=== PATIENT | female | born 1940 | race Caucasian/White ===

== ENCOUNTER 2019-09-16 08:12 | Inpatient (IN) | payer MEDICARE, OTHER, SELFPAY ==
[2019-09-16] VITALS (10 sets, daily range): BP systolic 133–196; BP diastolic 61–91; PULSE 89–104; RESP 16–22; TEMP 37–37.2; O2SAT 91–96; BMI 20.9
--- NOTE | 2019-09-16 08:24 | DI.RAD.S_ITS ---
PROCEDURE: XR CHEST 1V INDICATIONS: chest pain TECHNIQUE: One view of the chest was acquired. COMPARISON: [facility], , CHEST 2 VIEW, 08/21/2015, 15:04. FINDINGS: Surgical changes and devices: None. Lungs and pleura: There is hyperinflation of the lungs with flattening of the hemidiaphragms compatible with COPD. No acute consolidation. No pleural effusions or pneumothorax. Mediastinum: Mediastinal contours appear normal. Heart size is normal. Bones and chest wall: No suspicious bony lesions. Overlying soft tissues appear unremarkable. IMPRESSION: 1. Findings compatible COPD redemonstrated without acute cardiopulmonary disease. Dictated by: Zhen Herman M.D. on 09/16/2019 at 10:34 Approved by: Zhen Herman M.D. on 09/16/2019 at 10:36
--- NOTE | 2019-09-16 08:27 | DI.RAD.S_ITS ---
PROCEDURE: XR HIP W PEL IF DONE LT 2V INDICATIONS: left hip pain, hematoma, fall yesterday TECHNIQUE: 3 views of the hip were acquired. COMPARISON: None. FINDINGS: Bones: There is a subcapital/proximal left femoral neck fracture with superior displacement of the distal fracture fragment with respect to the femoral head fracture fragment by approximately 2.5 cm. No additional acute fractures are evident. There is no dislocation. No suspicious osseous lesions are identified. Moderate degenerative changes of the lower lumbar spine are present. Soft tissues: Extensive chondrocalcinosis is identified. Vascular stents at the expected locations of the bilateral common iliac arteries appear to be present. Otherwise, the soft tissues are unremarkable. IMPRESSION: 1. Mildly displaced subcapital fracture of the left proximal femur. 2. Chondrocalcinosis. Please correlate clinically for possible calcium pyrophosphate deposition disease. Dictated by: Emigdio Bazan M.D. on 09/16/2019 at 9:15 Approved by: Emigdio Bazan M.D. on 09/16/2019 at 9:19
--- NOTE | 2019-09-16 08:27 | DI.RAD.S_ITS ---
PROCEDURE: XR HAND LT MIN 3V INDICATIONS: left thumb, swelling and ecchymosis, small skin tear TECHNIQUE: 3 views of the hand(s) acquired. COMPARISON: None. FINDINGS: Bones: There is a mildly comminuted oblique fracture that probably extends into the joint involving the radial base of the proximal phalanx of the thumb. No additional fractures are evident. There is fusion. Carpal bones are normally aligned. No suspicious bony lesions. Moderate to severe degenerative changes of the joints of the wrist are significantly most pronounced involving the basal joint of the thumb. Soft tissues: Extensive chondrocalcinosis is identified. Soft tissue swelling of the thumb is present. IMPRESSION: 1. Nondisplaced intra-articular fracture involving the radial base of the proximal phalanx of the thumb. 2. Extensive chondrocalcinosis of the left hand may be seen in the setting of calcium pyrophosphate deposition disease. Please correlate clinically. Dictated by: Emigdio Bazan M.D. on 09/16/2019 at 9:11 Approved by: Emigdio Bazan M.D. on 09/16/2019 at 9:13
--- NOTE | 2019-09-16 08:27 | DI.RAD.S_ITS ---
PROCEDURE: XR FEMUR LT MIN 2V INDICATIONS: left hip/femur pain, hematoma TECHNIQUE: 2 views of the femur were acquired. COMPARISON: None. FINDINGS: Bones: There is a fracture involving the subcapital region of the left femoral neck with moderate proximal migration of the femur with respect to the acetabulum. No additional fractures are evident. Postoperative changes related to a total left knee arthroplasty are present. No suspicious osseous lesions are evident. Soft tissues: No suspicious soft tissue calcifications or masses. IMPRESSION: Proximal left femoral neck fracture. Dictated by: Emigdio Bazan M.D. on 09/16/2019 at 8:55 Approved by: Emigdio Bazan M.D. on 09/16/2019 at 9:11
--- NOTE | 2019-09-16 08:29 | ED_ITS ---
HPI - Extremity Injury (Lower) General Chief Complaint: Extremity Injury, Lower Stated Complaint: Fall - Hip pain & thumb dislocation Time Seen by Provider: 09/16/19 08:17 Source: patient, family (son), EMS and old records reviewed Mode of arrival: EMS Limitations: no limitations History of Present Illness HPI Narrative: This is a 78-year-old female who comes to the emergency department after a ground level fall yesterday. Patient states that she felt a little dizzy and fell to the ground. She states that she gets dizzy fairly frequently and often has falls. She denies hitting her head. She denies any headache or vision changes. She denies any neck or back pain. Yesterday she was able to get up. She fell on outstretched hand on her left and had significant swelling of the hand as well as bruising and some small skin tears. She states she had some left hip pain but was able to ambulate with her walker with moderate difficulty. This morning when she went to get out of her chair after sleeping she was too painful and noted that she had a hematoma on her left hip. Patient denies any dizziness currently. She denies any chest pain or shortness of breath at any point. No nausea, no vomiting, no no GI or urinary symptoms. No new numbness or tingling. She states she has a history of leukemia and is about 25 years out from treatment she does not follow regularly with oncologist but does with her primary care, COPD with tobacco use until fairly recently. She has had a left knee replacement but denies any other surgical history. Occasional alcohol recently she has been having a small drink nightly. No illicit. Dr. Sommer Hicks is her primary care. She lives in a basement apartment with her son and family. Related Data Home Medications Medication Instructions Recorded Confirmed alendronate 70 mg PO WEEKLY 09/16/19 09/16/19 aspirin [Adult Low Dose Aspirin] 81 mg PO DAILY 09/16/19 09/16/19 atorvastatin 20 mg PO DAILY 09/16/19 09/16/19 cholecalciferol (vitamin D3) 2,000 units PO DAILY 09/16/19 09/16/19 levothyroxine 50 mcg PO DAILY 09/16/19 09/16/19 mometasone-formoterol [Dulera] 100 inh INHALATION BID 09/16/19 09/16/19 triamterene-hydrochlorothiazid 1 cap PO DAILY 09/16/19 09/16/19 Allergies Allergy/AdvReac Type Severity Reaction Status Date / Time bee venom protein (honey bee) Allergy Severe Anaphylaxis Verified 09/16/19 08:44 lidocaine [From XYLOCAINE] Allergy Severe ANAPHYLAXIS Verified 09/16/19 08:31 Review of Systems Review of Systems ROS Unobtainable: All systems reviewed & are unremarkable except as noted in HPI and below Patient History Medical History COPD (chronic obstructive pulmonary disease) (Acute) Leukemia (Acute) Surgical History History of left knee replacement (Acute) Social History household members: family Smoking Status: Former smoker Smoking Status: Former smoker alcohol intake frequency: 0-2 drinks per day (1 small drink ) Substance Use Type: does not use Exam Narrative Exam Narrative: GEN: Patient appears in mild distress. HEAD: No evidence of trauma, no raccoon/[place] sign. NECK: Nontender, painless range of motion, trachea midline Negative Nexus criteria, there is no midline tenderness, distracting injury, altered mental status, neuro deficit, recent EtOH. EYES: PERRLA, EOMI ENT: External inspection normal, trachea is midline, TM's are normal no hemotypanum, Nares are clear, no septal hematoma, no dental or oral injury, airway is normal and with normal occlusion, No bony tenderness RESP: Chest is nontender and has symmetric movement, no ecchymosis, breath sounds are normal no crackles, wheezes or rales, no tachypnea or accessory muscle use. CVS: Heart sounds are normal, no murmur noted, No JVD. ABG/GI: Nontender, soft, normal bowel sounds, no distention, no organomegaly, pelvic rock is negative. NEURO: Oriented AOx3, neuro is grossly intact, sensation and motor is normal all 4 extremities moving, cranial nerves II through XII are intact, GCS is 15 PSYCH: Normal mood and affect SKIN: Patient has three small skin tears on the left thumb and palm of hand, w arm and dry, no crepitus and without decubitus BACK: No CVA tenderness, no vertebral tenderness, no step-off's, no crepitus EXT: Atraumatic, right hip is are nontender, left hip is non-tender moderately over left greater trochanter but more so over proximal femur, there is a 6x2cm area of ecchymosis over area of tenderness with small hematoma palpated, patient has swelling and ecchymosis of left thumb and into dorsum and palm of hand, patient can fully flex and extend, mild deformity although patient states this is normal, cap refill less than 2 seconds, normal sensation throughout hand, no proximal bony tenderness of wrist, forearm and upper arm on left. no pedal edema, normal color and temperature, normal range of motion of extremities with normal tendon exam in all other extremities, 2+ pulses in all four extremities. Initial Vital Signs Initial Vital Signs: Vital Signs Temperature 98.8 F 09/16/19 08:14 Pulse Rate 99 H 09/16/19 08:14 Respiratory Rate 18 09/16/19 08:14 Blood Pressure 196/79 H 09/16/19 08:14 Pulse Oximetry 94 09/16/19 08:14 Scores GCS Anna coma scale eye opening: Spontaneous [place] coma scale verbal response: Orientated [place] coma scale motor response: Obey commands [place] coma scale total score: 15 Course Orders Ordered: ED Orders 09/16/19 08:21 EKG-12 Lead Stat 09/16/19 08:24 XR chest 1V Stat 09/16/19 08:27 XR femur LT min 2V Stat XR hand LT min 3V Stat XR hip w pel if done LT 2V Stat 09/16/19 08:38 Complete Blood Count AUTO DIFF Stat Comprehensive Metabolic Panel Stat Lipase Stat Partial Thromboplastin Time Stat Prothrombin Time INR Stat Troponin & CK Cardiac Panel Stat Enoxaparin Sodium (Lovenox) 40 mg SUBCUT DAILY KOREY Sodium Chloride (Normal Saline 0.9%) 1,000 mls @ 100 mls/hr IV CONT KOREY Last Admin: 09/16/19 13:30 Dose: 100 mls/hr Documented by: DEVANTE Morphine Sulfate (Morphine) 4 mg IV Q2HR PRN PRN Reason: Pain, Severe (7-10) Last Admin: 09/16/19 13:30 Dose: 4 mg Documented by: DEVANTE Naloxone HCl (Narcan) 0.2 mg IV Q2MIN PRN PRN Reason: Opiate Reversal Discontinued Medications Diphtheria/Tetanus/Acell Pertussis (Adacel) 0.5 ml IM .ONCE ONE Stop: 09/16/19 08:33 Last Admin: 09/16/19 08:56 Dose: 0.5 ml Documented by: TYE Sodium Chloride (Normal Saline 0.9%) 1,000 mls @ 150 mls/hr IV CONT KOREY Last Admin: 09/16/19 08:52 Dose: 150 mls/hr Documented by: TYE Morphine Sulfate (Morphine) 4 mg IV NOW ONE Stop: 09/16/19 08:30 Last Admin: 09/16/19 08:50 Dose: 4 mg Documented by: TYE Morphine Sulfate (Morphine) 4 mg IV NOW ONE Stop: 09/16/19 09:48 Last Admin: 09/16/19 10:05 Dose: 4 mg Documented by: TYE Potassium Chloride (Potassium Chloride) 40 meq PO NOW ONE Stop: 09/16/19 09:12 Last Admin: 09/16/19 10:05 Dose: 40 meq Documented by: TYE Vital Signs Vital signs: Vital Signs - 8 hr 09/16/19 08:14 09/16/19 09:00 09/16/19 10:00 Temperature 98.8 F Pulse Rate 99 H 89 95 H Respiratory Rate 18 18 22 Blood Pressure 196/79 H Blood Pressure [Right Arm] 152/64 H 174/76 H Pulse Oximetry 94 91 92 09/16/19 10:30 Temperature Pulse Rate 95 H Respiratory Rate 17 Blood Pressure Blood Pressure [Right Arm] 156/69 H Pulse Oximetry 91 MDM - Extremity Injury (Lower) Lab Data Result diagrams: 09/16/19 08:38 09/16/19 08:38 Labs: Lab Results 09/16/19 09/16/19 09/16/19 Range/Units 08:38 08:38 08:38 WBC 12.0 H (4.5-11.0) X10^3/uL RBC 4.00 (4.0-5.2) X10^6/uL Hgb 14.2 (12.0-16.0) g/dL Hct 42.0 (36-46) % MCV 104.9 H (80-100) fL MCH 35.5 H (26-34) PG MCHC 33.9 (30-36) % RDW 14.1 (11.6-14.8) % Plt Count 162 (150-400) X10^3/uL Neut % (Auto) 58.3 (50-75) % Lymph % (Auto) 37.9 (25-40) % [place] % (Auto) 2.8 L (3-14) % Eos % (Auto) 0.8 L (2-4) % Baso % (Auto) 0.2 (0-2) % Neut # (Auto) 7000 (3989-9803) /uL Lymph # (Auto) 4600 H (4957-4860) /uL [place] # (Auto) 300 (0-900) /uL Eos # (Auto) 100 (0-450) /uL Baso # (Auto) 0 (0-100) /uL PT 11.7 (10.1-12.7) SECONDS INR 1.0 (0.9-1.3) APTT 31 (26.4-36.2) SECONDS Sodium 136 L (137-145) mmol/L Potassium 3.2 L (3.4-5.1) mmol/L Chloride 100 (98-107) mmol/L Carbon Dioxide 30 (22-32) mmol/L BUN 15 (7-17) mg/dL Creatinine 0.44 L (0.52-1.04) mg/dL Estimated GFR > 60.0 (>60) mL/min BUN/Creatinine Ratio 34.1 H (6-22) Glucose 107 (80-110) mg/dL Calcium 9.4 (8.4-10.2) mg/dL Total Bilirubin 1.6 H (0.2-1.3) mg/dL AST 34 (14-36) IU/L ALT 25 (<35) IU/L Alkaline Phosphatase 102 (38-126) U/L Total Creatine Kinase 92 (30-135) U/L CK-MB (CK-2) TNP CK-MB (CK-2) Rel Index TNP Troponin I < 0.012 (0.01-0.034) ng/mL Total Protein 7.5 (6.3-8.2) g/dL Albumin 4.2 (3.5-5.0) g/dL Globulin 3.3 (1.7-4.1) g/dL Albumin/Globulin Ratio 1.3 (1.0-2.8) Lipase 22 L (23-300) U/L ECG Data Attestation: I personally reviewed and interpreted this ECG as follows: Prior ECG tracings: not available for review Interpretation: Sinus rhythm with left axis deviation rate 85 P are 176 QRS is 68 QTC of 395. Patient does have a little bit of motion artifact that were we were unable to resolve with repeat attempts in EKG. No obvious ST elevation or depression is noted. Patient does have nonspecific change in 3 and AVF. No priors for comparison. MDM Narrative Medical decision making narrative: Patient arrives with GLF yesterday, was able to ambulate after the fall but has had increasing pain today and unable to get out of chair or ambulate. Patient does take asa 81mg nightly but no other a nticoagulants. Denies any head injuries. She has intermittent dizziness and relates this to her fall with no syncope or new symptoms at this time. WBC is 12, patient has macrocytosis. Monocytes are 2.8 any other 0.8, patient has chronically elevated leukocytosis. Coags are normal, patient's electrolytes show sodium 136 with a slightly low potassium at 3.2, the rest electrolytes and renal function do not show major abnormalities bilirubin is 1.6 with negative troponin. X-rays show a displaced subcapital fracture left proximal femur as well as a comminuted oblique fracture likely extending the joint of the proximal phalanx of the thumb. There is moderate to severe degenerative changes. A chest x-ray shows findings compatible with COPD. EKG does not show any acute changes. Patient received a dose of IV narcotics but after imaging received a 2nd dose as her pain had increased. She is much more comfortable at this time. Images were reviewed with Dr. Mckeon from orthopedic surgery, plan for OR either today or tomorrow unclear based on scheduling. Plan for covid testing as per OR protocol at this time. Patient was placed in a splint to immoblize the thumb and will have definitive cast/splint by ortho while in the OR. Discussed with Dr. Woodall who accepts for admission and medical clearance at the request of the orthopedic surgery. Discharge Plan Departure Patient Disposition: Admitted As Inpatient Clinical Impression: Fall from ground level, Closed fracture of left hip, Fracture of thumb, left, closed Discharge Date/Time: 09/16/19 11:50 Admit Date/Time: 09/16/19 10:43 Admit Provider: Mele Woodall
[2019-09-16 08:47] LABS: Add Manual Diff / Slide Review NO; Basophils Absolute Auto 0 /uL (0-100); Basophils Percent Auto 0.2 % (0-2); Eosinophils Absolute Auto 100 /uL (0-450); Eosinophils Percent Auto 0.8 % (2-4); Hemoglobin 14.2 g/dL (12.0-16.0); Lymphocytes Absolute Auto 4600 /uL (1100-4500); Lymphocytes Percent Auto 37.9 % (25-40); Mean Corpuscular HGB Conc 33.9 % (30-36); Mean Corpuscular Hemoglobin 35.5 PG (26-34); Mean Corpuscular Volume 104.9 fL (80-100); Monocytes Absolute Auto 300 /uL (0-900); Monocytes Percent Auto 2.8 % (3-14); Neutrophils Absolute Auto 7000 /uL (1500-7000); Neutrophils Percent Auto 58.3 % (50-75); Platelet Count 162 X10^3/uL (150-400); Red Cell Distribution Width 14.1 % (11.6-14.8)
[2019-09-16] MEDS: MORPHINE 4 MG/ML INJ IV ×4 (08:50→16:48)
[2019-09-16] MEDS: SODIUM CHLORIDE 0.9% 1,000 ML 150 ML IV (08:52)
[2019-09-16 08:54] LABS: Prothrombin Time 11.7 SECONDS (10.1-12.7)
[2019-09-16 08:56] LABS: PTT Partial Thromboplastin Tim 31 SECONDS (26.4-36.2)
[2019-09-16] MEDS: TET,DIPH,PERTUSS(ACELL),VAC/PF 0.5 ML SYRINGE IM (08:56)
[2019-09-16 08:59] LABS: Alanine Aminotransferase 25 IU/L (<35); Albumin 4.2 g/dL (3.5-5.0); Albumin Globulin Ratio 1.3 (1.0-2.8); Alkaline Phosphatase 102 U/L (38-126); Aspartate Aminotransferase 34 IU/L (14-36); BUN Creatinine Ratio 34.1 (6-22); Bilirubin Total 1.6 mg/dL (0.2-1.3); Blood Urea Nitrogen 15 mg/dL (7-17); Calcium 9.4 mg/dL (8.4-10.2); Carbon Dioxide 30 mmol/L (22-32); Chloride 100 mmol/L (98-107); Creatine Kinase 92 U/L (30-135); Estimated Glomerular Filt Rate > 60.0 mL/min (>60); Globulin 3.3 g/dL (1.7-4.1); Glucose 107 mg/dL (80-110); HEMOLYSIS < 15 (0-50); Lipase 22 U/L (23-300); Potassium 3.2 mmol/L (3.4-5.1); Sodium 136 mmol/L (137-145); Total Protein 7.5 g/dL (6.3-8.2)
[2019-09-16 09:10] LABS: Troponin I < 0.012 ng/mL (0.01-0.034)
[2019-09-16] MEDS: POTASSIUM CHLORIDE 20 MEQ/15 ML UDC 40 MEQ PO (10:05)
--- NOTE | 2019-09-16 11:20 | PC.NURSE ---
Second IV site added right forearm.
[2019-09-16 11:23] LABS: Appearance Urine UA CLEAR; Bilirubin Urine UA NEGATIVE (NEGATIVE); Color Urine UA YELLOW; Glucose Urine UA NEGATIVE (Negative); Ketones Urine UA NEGATIVE (NEGATIVE); Leukocyte Esterase Urine UA NEGATIVE (NEGATIVE); Nitrite Urine UA NEGATIVE (Negative); Occult Blood Urine UA 1+ (Negative); Protein Urine UA NEGATIVE (Negative); Urobilinogen Urine UA 0.2 E.U./dL (0.2)
[2019-09-16 11:33] LABS: Bacteria Urine Few (2-10); Culture Indicated Urine Cult Not Indicated; RBC Urine 0-1/HPF (0-5/HPF); WBC Urine 0-1/HPF (0-5/HPF)
--- NOTE | 2019-09-16 12:02 | PC.NURSE ---
Addendum entered by Kaylie Stacy R.N. 09/16/19 13:42: EKG at bedside. SCDs and Tele in place. IVF infusing. Updated son Darryl Rdz (POA) regarding plan of care. Original Note: Day shift note: Patient admitted to room 213 from ED, awake, alert, and pleasant. Transferred from [facility] to bed with slider board. Large bruise to left hip, left thumb. Please see skin assessment for details. C/O pain to LLE with movement, shortened extremity, pedal pulse 2+, sensation present, discoloration noted to toes, however, warm, movable with cap refill < 2 secs. Left hand/thumb in splint. Oriented to room, environment, and plan of care. Dr. Woodall at bedside. Patient NPO, high risk precautions initiated, call light within reach. COVID test pending, precautions maintained.
[2019-09-16 12:14] LABS: COVID19 -Nasal RAPID Negative (Negative)
--- NOTE | 2019-09-16 12:29 | P.HP_ITS ---
History of Present Illness History of Present Illness Date Patient Seen: 09/16/19 Time Patient Seen: 12:29 Date of Onset of Symptoms: 09/15/19 Chief complaint: Fall - Hip pain & thumb dislocation Narrative: Francisca Rdz is a 70-year-old female with past medical history of CLL (never had treament). PAD, COPD, HTN, probable prior CVA (problems with speech, but refused admission at the time in [place]), hypothyroidism, active smoker who presented after a fall yesterday in her driveway. She states she felt mildly dizzy prior to her fall, but fell backwards on to her left side. She was wearing headphones and did notice a scratch on them but states that they took most of the impacted she does not remember hitting her head on the ground. She did not lose consciousness. She denies any recent fevers, chills, worsening shortness of breath, cough, chest pain, palpitations, abdominal pain, dysuria, or urinary frequency. She complained of left hip and knee pain after the fall, she called her son initially, who she lives with. She also complained left hand pain and bruising. Patient lives with her son. She lives independently in the basement with her son up above. She does all of her daily activities. In the ED, patient was hypertensive, but other vital signs unremarkable. Labs were notable for a potassium of 3.2, but otherwise unremarkable chemistries except for a mildly elevated T bili at 1.6. White blood cell count was 12, hemoglobin 14, and platelet count of 162. Patient has known CLL and believes that her baseline white blood cell count is around 20, but she has not been seen by her oncologist in a while. She does follow annually for this. Chest x-ray showed hyperinflated lungs consistent with known COPD but no acute infiltrates. Femur x-ray showed a left femoral neck fracture and hand x-ray showed a left proximal phalanx fracture of her thumb. Patient had a brace placed by the emergency room and will be further evaluated by orthopedic surgery. She is admitted to the medicine service with a left for more neck fracture with plans to undergo operative interventions in the next 24 hours. She is currently pending a repeat EKG, but based on her current symptoms she appears medically optimized for surgery. Patient History Medical History COPD (chronic obstructive pulmonary disease) (Acute) Leukemia (Acute) Surgical History History of left knee replacement (Acute) Family & Social History Safety & Behavioral: Feels Safe in Current Yes Environment Been Physically Hurt or No Threatened By a Person Tobacco & Substance use: Smoking Status Former smoker alcohol intake frequency 0-2 drinks per day Substance Use Type does not use Meds Home Medications and Allergies Home Medications Medication Instructions Recorded Confirmed Type alendronate 70 mg PO WEEKLY 09/16/19 09/16/19 History aspirin [Adult Low Dose Aspirin] 81 mg PO DAILY 09/16/19 09/16/19 History atorvastatin 20 mg PO DAILY 09/16/19 09/16/19 History cholecalciferol (vitamin D3) 2,000 units PO DAILY 09/16/19 09/16/19 History levothyroxine 50 mcg PO DAILY 09/16/19 09/16/19 History mometasone-formoterol [Dulera] 100 inh INHALATION BID 09/16/19 09/16/19 History triamterene-hydrochlorothiazid 1 cap PO DAILY 09/16/19 09/16/19 History Allergies Allergy/AdvReac Type Severity Reaction Status Date / Time bee venom protein (honey bee) Allergy Severe Anaphylaxis Verified 09/16/19 08:44 lidocaine [From XYLOCAINE] Allergy Severe ANAPHYLAXIS Verified 09/16/19 08:31 Review of Systems Review of Systems Narrative: All other systems reviewed with the patient and are negative unless otherwise stated. Exam Vital Signs (past 8 hours): - 09/16/19 08:14 09/16/19 09:00 09/16/19 10:00 Temperature 98.8 F Pulse Rate 99 H 89 95 H Respiratory Rate 18 18 22 Blood Pressure 196/79 H Blood Pressure [Right Arm] 152/64 H 174/76 H Pulse Oximetry 94 91 92 09/16/19 10:30 Temperature Pulse Rate 95 H Respiratory Rate 17 Blood Pressure Blood Pressure [Right Arm] 156/69 H Pulse Oximetry 91 Oxygen Delivery Method Room Air Narrative Exam Narrative: GENERAL APPEARANCE: Elderly female, no acute distress, well developed well nourished. SKIN: Inspection of the skin reveals no rashes, ulcerations or petechiae. HEENT: Normocephalic atraumatic, extraocular muscles are intact, oropharynx is clear and mucous membranes are dry, neck is supple without adenopathy NECK: Supple and symmetric. There was no thyroid enlargement, and no tenderness, or masses were felt. CHEST: Normal AP diameter and normal contour without any kyphoscoliosis. LUNGS: Auscultation of the lungs revealed no wheezes, rhonchi, or rales. CARDIOVASCULAR: There was a regular rhythm without any murmurs, gallops, rubs, she was mildly tachycardic. Peripheral pulses were 2+ and symmetric. ABDOMEN: Soft and nontender with normal bowel sounds. No ascites was noted. MUSCULOSKELETAL: Left hip and thumb some tenderness. There is significant ecchymosis on her left hand as well as her left hip. EXTREMITIES: No cyanosis, clubbing or edema. NEUROLOGIC: Alert and oriented x 3. Normal affect. Gait was not assessed. Strength is +5/5 in the Upper Extremities and Lower Extremities Bilaterally. Sensation to touch was normal. Objective Labs Result Diagrams: 09/16/19 08:38 09/16/19 08:38 Labs: Laboratory Results - last 24 hr 09/16/19 09/16/19 09/16/19 08:38 08:38 08:38 WBC 12.0 H RBC 4.00 Hgb 14.2 Hct 42.0 MCV 104.9 H MCH 35.5 H MCHC 33.9 RDW 14.1 Plt Count 162 Neut % (Auto) 58.3 Lymph % (Auto) 37.9 [place] % (Auto) 2.8 L Eos % (Auto) 0.8 L Baso % (Auto) 0.2 Neut # (Auto) 7000 Lymph # (Auto) 4600 H [place] # (Auto) 300 Eos # (Auto) 100 Baso # (Auto) 0 PT 11.7 INR 1.0 APTT 31 Sodium 136 L Potassium 3.2 L Chloride 100 Carbon Dioxide 30 BUN 15 Creatinine 0.44 L Estimated GFR > 60.0 BUN/Creatinine Ratio 34.1 H Glucose 107 Calcium 9.4 Total Bilirubin 1.6 H AST 34 ALT 25 Alkaline Phosphatase 102 Total Creatine Kinase 92 CK-MB (CK-2) TNP CK-MB (CK-2) Rel Index TNP Troponin I < 0.012 Total Protein 7.5 Albumin 4.2 Globulin 3.3 Albumin/Globulin Ratio 1.3 Lipase 22 L Urine Color Urine Appearance Urine pH Ur Specific [place] Urine Protein Urine Glucose (UA) Urine Ketones Urine Occult Blood Urine Nitrate Urine Bilirubin Urine Urobilinogen Ur Leukocyte Esterase Urine RBC Urine WBC Urine Bacteria Ur Culture Indicated? COVID-19 PCR 09/16/19 09/16/19 10:55 10:55 WBC RBC Hgb Hct MCV MCH MCHC RDW Plt Count Neut % (Auto) Lymph % (Auto) [place] % (Auto) Eos % (Auto) Baso % (Auto) Neut # (Auto) Lymph # (Auto) [place] # (Auto) Eos # (Auto) Baso # (Auto) PT INR APTT Sodium Potassium Chloride Carbon Dioxide BUN Creatinine Estimated GFR BUN/Creatinine Ratio Glucose Calcium Total Bilirubin AST ALT Alkaline Phosphatase Total Creatine Kinase CK-MB (CK-2) CK-MB (CK-2) Rel Index Troponin I Total Protein Albumin Globulin Albumin/Globulin Ratio Lipase Urine Color Yellow Urine Appearance Clear Urine pH 7.0 Ur Specific [place] 1.010 Urine Protein Negative Urine Glucose (UA) Negative Urine Ketones Negative Urine Occult Blood 1+ H Urine Nitrate Negative Urine Bilirubin Negative Urine Urobilinogen 0.2 Ur Leukocyte Esterase Negative Urine RBC 0-1/hpf Urine WBC 0-1/hpf Urine Bacteria Few (2-10) H Ur Culture Indicated? Cult not indicated COVID-19 PCR Negative Assessment & Plan Assessment & Plan narrative: Francisca Rdz is a 70-year-old female with past medical history of CLL (never had treament). PAD, COPD, HTN, probable prior CVA (problems with speech, but refused admission at the time in [place]), hypothyroidism, active smoker who presented after a fall yesterday in her driveway. She is admitted to the medicine service with a left femur fracture with plans to undergo operative intervention in the next 24 hours. She also has a left thumb proximal phalanx fracture which is pending orthopedic evaluation. 1. Left femur fracture, acute, present on admission -management per orthopedic surgery, appreciate assistance with management -Plan for OR tomorrow per ortho for surgical interventions -continue pain management with morphine as needed -zofran for nausea 2. Left thumb proximal phalanx fracture, acute, present on admission - splint per ortho to be placed in the OR 3. COPD, chronic, stable - duonebs BID to replace home dulera - RT eval and treat, prn albuterol 4. Hypertension, chronic, stable - will hold HCTZ as Na 136 on admission. - BP controlled with pain medications, restart with alternative agent when needed, preferrably lisinopril after OR. 5. PAD, chronic, stable - asa 81 mg 6. CLL, stable -continue to follow CBC 7. Hypokalemia - will replete. 8. Probable history of CVA Code: Full, states she does not have a medical power of bearing grinder for a surrogate decision maker. She does have 3 sons and states that they often disagree. She does have an advanced directive which we will work on obtaining. Dispo: Admitted under inpatient status as her stay is likely to exceed 2 midnights DVT: Lovenox daily Diet: NPO @ [place] For OR tomorrow.
[2019-09-16] MEDS: SODIUM CHLORIDE 0.9% 1,000 ML 100 ML IV ×2 (13:30→19:34)
--- NOTE | 2019-09-16 14:02 | PM.CN ---
History of Present Illness Consult details Date Patient Seen: 09/16/19 Time Patient Seen: 14:02 Chief complaint: Fall - Hip pain & thumb dislocation Narrative: Francisca Rdz is a 78-year-old female with past medical history of CLL (never had treament). PAD, COPD, HTN, probable prior CVA (problems with speech, but refused admission at the time in [place]), hypothyroidism, active smoker who presented after a fall yesterday in her driveway. She states she felt mildly dizzy prior to her fall, but fell backwards on to her left side. She ledy she lightly struck her head, but no LOC. She denies any recent fevers, chills, worsening shortness of breath, cough, chest pain, palpitations, abdominal pain, dysuria, or urinary frequency. She complained of left hip and knee pain after the fall, she called her son initially, who she lives with. She also complained left hand pain and bruising. This occured yesterday. Patient lives with her son. She lives independently in the basement with her son up above. She does all of her daily activities. Meds Home Medications and Allergies Home Medications Medication Instructions Recorded Confirmed Type alendronate 70 mg PO WEEKLY 09/16/19 09/16/19 History aspirin [Adult Low Dose Aspirin] 81 mg PO DAILY 09/16/19 09/16/19 History atorvastatin 20 mg PO DAILY 09/16/19 09/16/19 History cholecalciferol (vitamin D3) 2,000 units PO DAILY 09/16/19 09/16/19 History levothyroxine 50 mcg PO DAILY 09/16/19 09/16/19 History mometasone-formoterol [Dulera] 100 inh INHALATION BID 09/16/19 09/16/19 History triamterene-hydrochlorothiazid 1 cap PO DAILY 09/16/19 09/16/19 History Allergies Allergy/AdvReac Type Severity Reaction Status Date / Time bee venom protein (honey bee) Allergy Severe Anaphylaxis Verified 09/16/19 08:44 lidocaine [From XYLOCAINE] Allergy Severe ANAPHYLAXIS Verified 09/16/19 08:31 Exam Vital Signs (past 8 hours): - 09/16/19 08:14 09/16/19 09:00 09/16/19 10:00 Temperature 98.8 F Pulse Rate 99 H 89 95 H Respiratory Rate 18 18 22 Blood Pressure 196/79 H Blood Pressure [Right Arm] 152/64 H 174/76 H Pulse Oximetry 94 91 92 09/16/19 10:30 09/16/19 12:00 09/16/19 12:43 Temperature 99.0 F Pulse Rate 95 H 104 H Respiratory Rate 17 18 Blood Pressure 142/61 H Blood Pressure [Right Arm] 156/69 H Pulse Oximetry 91 93 96 Oxygen Delivery Method Room Air Oxygen Flow Rate 0 Narrative Exam Narrative: No skin breaks over the left hip. NV intact in the LLE. Able to wiggle toes. Knee is stable to exam, although sore. LEft hand with brusing. TTP at the MCP joint. Sever degenerative changes seen throughout the hand (in addition to fracture) Objective Labs Result Diagrams: 09/16/19 08:38 09/16/19 08:38 Labs: Laboratory Results - last 24 hr 09/16/19 09/16/19 09/16/19 08:38 08:38 08:38 WBC 12.0 H RBC 4.00 Hgb 14.2 Hct 42.0 MCV 104.9 H MCH 35.5 H MCHC 33.9 RDW 14.1 Plt Count 162 Neut % (Auto) 58.3 Lymph % (Auto) 37.9 [place] % (Auto) 2.8 L Eos % (Auto) 0.8 L Baso % (Auto) 0.2 Neut # (Auto) 7000 Lymph # (Auto) 4600 H [place] # (Auto) 300 Eos # (Auto) 100 Baso # (Auto) 0 PT 11.7 INR 1.0 APTT 31 Sodium 136 L Potassium 3.2 L Chloride 100 Carbon Dioxide 30 BUN 15 Creatinine 0.44 L Estimated GFR > 60.0 BUN/Creatinine Ratio 34.1 H Glucose 107 Calcium 9.4 Total Bilirubin 1.6 H AST 34 ALT 25 Alkaline Phosphatase 102 Total Creatine Kinase 92 CK-MB (CK-2) TNP CK-MB (CK-2) Rel Index TNP Troponin I < 0.012 Total Protein 7.5 Albumin 4.2 Globulin 3.3 Albumin/Globulin Ratio 1.3 Lipase 22 L Urine Color Urine Appearance Urine pH Ur Specific [place] Urine Protein Urine Glucose (UA) Urine Ketones Urine Occult Blood Urine Nitrate Urine Bilirubin Urine Urobilinogen Ur Leukocyte Esterase Urine RBC Urine WBC Urine Bacteria Ur Culture Indicated? COVID-19 PCR 09/16/19 09/16/19 10:55 10:55 WBC RBC Hgb Hct MCV MCH MCHC RDW Plt Count Neut % (Auto) Lymph % (Auto) [place] % (Auto) Eos % (Auto) Baso % (Auto) Neut # (Auto) Lymph # (Auto) [place] # (Auto) Eos # (Auto) Baso # (Auto) PT INR APTT Sodium Potassium Chloride Carbon Dioxide BUN Creatinine Estimated GFR BUN/Creatinine Ratio Glucose Calcium Total Bilirubin AST ALT Alkaline Phosphatase Total Creatine Kinase CK-MB (CK-2) CK-MB (CK-2) Rel Index Troponin I Total Protein Albumin Globulin Albumin/Globulin Ratio Lipase Urine Color Yellow Urine Appearance Clear Urine pH 7.0 Ur Specific [place] 1.010 Urine Protein Negative Urine Glucose (UA) Negative Urine Ketones Negative Urine Occult Blood 1+ H Urine Nitrate Negative Urine Bilirubin Negative Urine Urobilinogen 0.2 Ur Leukocyte Esterase Negative Urine RBC 0-1/hpf Urine WBC 0-1/hpf Urine Bacteria Few (2-10) H Ur Culture Indicated? Cult not indicated COVID-19 PCR Negative Assessment & Plan Assessment & Plan narrative: Patient is a 78 year old female with a complex past medical history. She does have a history of falls. She states she got dizzy and fell, but denies LOC. Patient sustained a proximal phalanx fracture of the left thumb in addition to a displaced intra-capsular femoral neck fracture. She states that prior to her fall she did not have hip pain. She does not use assistive devices. Community ambualtor. I had a long discussion with the patient regarding her injuries. Regarding her hip I think she would benefit from a cemeneted della-arthropalsty. I discussed the risks and benefits with the patient including the risks of infection, damage to local structures such as vessels and nerves, need for furutre surgeries, DVT, PE, dislocations, iatrogenic fracture, etc. Patient demonstrates understanding of these risks and wishes to proceed with hemiarthroplasty. Regarding the left thumb she has a long history of hand pain and deformation from degenerative changes. I discussed surgical vs. non-surgical treatment. She wishes to proceed with non-surgical treatment, which I think is reasonable considering the amount of degenerative ahgnes and she is right hand dominant. A thumb spica cast will be plcaed in OR tomrrow. Patient is NEB RLE NPO after midnight OCTOR tomorrow Time Spent With Patient Time with patient: 15-24 minutes
[2019-09-16] MEDS: POTASSIUM CHLORIDE 40 MEQ in SODIUM CHLORIDE 0.9% 500 ML 130 ML IV (20:26)
[2019-09-16] MEDS: ONDANSETRON 4 MG/2 ML INJ IV (20:26)
[2019-09-16] MEDS: ALBUTEROL/IPRATROPIUM 3 ML AMPUL INH (21:36)
--- NOTE | 2019-09-16 21:40 | PC.NURSE ---
Pt A and O x 4, VSS but desats to high 80's when sleeping. Pt put on 2L NC to stay > 92%. Pt has some wheezing noted L upper and crackles R base. Pt also c/o nausea and received 4 mg Zofran with good results. She is able to sleep but does c/o L hip and knee pain approx 6/10 and with movement. She continues to be NPO.
[2019-09-17] VITALS (24 sets, daily range): BP systolic 101–137; BP diastolic 48–72; PULSE 69–103; RESP 15–20; TEMP 36.3–37.4; O2SAT 86–96
--- NOTE | 2019-09-17 | DI.RAD.S_ITS ---
PROCEDURE: XR PELVIS 1-2V INDICATIONS: POST OP LEFT HIP TECHNIQUE: Intra-operative view of the pelvis and hip acquired. COMPARISON: None. FINDINGS: Bones: Intraoperative devices prior to placement of arthroplasty prostheses are in expected positions. No fractures or suspicious bony lesions. Soft tissues: Overlying surgical retractors are present, along with other intraoperative changes. IMPRESSION: Status post left hip arthroplasty. Dictated by: Clarice Walker M.D. on 09/17/2019 at 11:28 Approved by: Clarice Walker M.D. on 09/17/2019 at 11:28
[2019-09-17] MEDS: MORPHINE 4 MG/ML INJ IV (00:24)
--- NOTE | 2019-09-17 07:42 | PM.PREOP ---
Pre-operative Note COVID-19 COVID-19 status: Negative Result date/Date tested (Pos, Neg/Pending): 09/16/19 Interval Note History & Physical reviewed/Exam performed by Physician: Yes Changes to H&P: No H&P completed within 30 days and has changed as indicated here:: Plan for Left hip cemented hemiarthroplasty. The risks and benefits of surgery were discussed with the patient and she wishes to proceed with surgery. All last minute questions were answered.
[2019-09-17 07:55] LABS: Add Manual Diff / Slide Review NO; Basophils Absolute Auto 0 /uL (0-100); Basophils Percent Auto 0.1 % (0-2); Eosinophils Absolute Auto 0 /uL (0-450); Eosinophils Percent Auto 0.1 % (2-4); Lymphocytes Absolute Auto 4200 /uL (1100-4500); Lymphocytes Percent Auto 36.4 % (25-40); Mean Corpuscular HGB Conc 34.1 % (30-36); Mean Corpuscular Volume 105.4 fL (80-100); Monocytes Absolute Auto 400 /uL (0-900); Monocytes Percent Auto 3.6 % (3-14); Neutrophils Absolute Auto 6900 /uL (1500-7000); Neutrophils Percent Auto 59.8 % (50-75); Platelet Count 141 X10^3/uL (150-400); Red Blood Cell Count 3.33 X10^6/uL (4.0-5.2); Red Cell Distribution Width 14.1 % (11.6-14.8); White Blood Cell Count 11.6 X10^3/uL (4.5-11.0)
[2019-09-17 08:04] LABS: BUN Creatinine Ratio 40.4 (6-22); Blood Urea Nitrogen 19 mg/dL (7-17); Calcium 8.6 mg/dL (8.4-10.2); Carbon Dioxide 24 mmol/L (22-32); Chloride 110 mmol/L (98-107); Estimated Glomerular Filt Rate > 60.0 mL/min (>60); Glucose 74 mg/dL (80-110); HEMOLYSIS < 15 (0-50); Magnesium 1.6 mg/dL (1.6-2.3); Potassium 4.4 mmol/L (3.4-5.1); Sodium 140 mmol/L (137-145)
--- NOTE | 2019-09-17 08:13 | PC.NURSE ---
Patient picked up for surgery, consent was signed, and patient spoke with her family over the phone. VSS, on 2L o2, denies shortness of breath. Brace to left thumb in place, Dr. Mckeon states he will cleanse and place appropriate/new brace in OR. Powell in place draining clear yellow urine. Await patient's return post surgery.
[2019-09-17] MEDS: CEFAZOLIN 2 GM/100 ML FROZ.PIGGY IV ×2 (08:17→17:22)
[2019-09-17 08:40] LABS: TSH w/ Reflex to FT4 0.43 uIU/mL (0.47-4.68)
--- NOTE | 2019-09-17 08:58 | SUR.OPER ---
Lateral on padded OR bed. Gel axillary roll. Arms secured on padded armboard with pillow supporting top arm. Padded hip positioner braces x4 - anterior and posterior chest and pelvis. Additional gel pad used anterior pelvis. Gel pad under bottom leg from knee to foot and secured with tape over sheet.
[2019-09-17 09:05] LABS: Free T4, Direct Thyroxine 1.37 ng/dL (0.78-2.19)
--- NOTE | 2019-09-17 10:28 | PM.OP.1 ---
Operative Date/Time/Diagnoses Date of procedure: 09/17/19 Time of procedure: 10:28 Pre-op diagnosis: displaced left femoral neck fracture Post-op diagnosis: same Procedure & Clinicians Procedure: Left hip cemented della arthroplasty Same procedure as scheduled: Yes Indications: disaplced left femoral neck fracture Surgeon: Tyler Mckeon Coin Purse Framer: Loren Man Anesthesia Type: General Operative Notes Findings: Displaced left femoral neck fracture, soft tissue hematoma Closure Type: primary Prosthetic devices, grafts, tissues, transplants, or devices: Alcantara [employer]hew Synergy cemented stem size 14 std offset Alcantara and Nephew ipolar head 46 x 28 + 4mm Estimated Blood Loss (mL): 200 Blood products transfused: none Procedure in detail: Patient is a 78-year-old female who had a ground level fall 2 days ago. She was seen on Hospital ER yesterday and was diagnosed with a displaced left femoral neck fracture. Patient was met in the preoperative holding area where the site and side of surgery were marked by MD the risks and benefits of surgery were also discussed the patient including the risks of infection, DVT, PE, dislocations, fracture, need for future surgeries, damage to local structures such as vessels and nerves, etc. Patient demonstrates understanding of these risks and wishes to proceed with left hip cemented hemiarthroplasty. All last minute questions were answered. Patient was then brought back in the operating room where she was induced under general anesthesia. She was then transferred onto the operating room table. The patient was then placed into the right lateral decubitus position all bony prominences were well padded and axillary roll was placed. The left hip was then prepped and draped in normal sterile fashion. A surgical time-out was performed verifying the side and site of surgery as well as the name of the patient A 10 cm incision was centered from the prominence of the greater tuberosity angle approximately 40? posterior proximal. The incision was made using 10. Blade followed by electrocautery down to the level of the ITB band. ID band was then incised using electrocautery and the superior gluteal fascia was also split. The gluteus alfonzo fibers were split in line with the fibers electrocautery was used for hemostasis. A Cobra was then placed underneath the gluteus medius and the piriformis was identified and released off the back of the greater trochanter. This was also tagged with FiberWire suture. A curved osteotome was then used to elevate the gluteus minimus off the capsule and a Cobra was placed underneath the gluteus minimus. This gave us good access to the capsule. A L-shaped capsular incision was performed and the corner of the capsule was also tagged with a FiberWire suture. At this point we could see the fracture. The hip was then dislocated and a freshen up cut the femoral neck was performed. A corkscrew was then used to remove the femoral head. This was then sized. Care was taken to make sure that all bony fragments were removed from the acetabulum. A canal finer was used to gain access the femoral canal followed by a lateralized Reamer on power followed by a powered reamers up to a size 14. The in broach size is 11, 12, 13, and 14. Fourteen had good purchase. This was then trialed with a standard offset neck and a +0 head. This was found to be stable. The hip was then dislocated the trial components were removed. A cement restrictor was then placed inside the femoral canal followed by pulse lavage of the canal using a canal brush. Cement was then mixed on the back table and this was then filled from distal to proximal and then pressurized. The size 14 stem was then placed and held until the cement was completely hardened. All excess cement was removed. And great care was taken to ensure there is no cement pieces in the acetabulum. A size 46 x 28 +0 bipolar head was then trialed and was stable but with felt that she was little shorter as compared to the contralateral leg. This was then dislocated and a size 46 x 28 +4 mm final head was impacted onto the trunnion and reduced. Again taken through range of motion found to be stable. The surgical incision was then thoroughly irrigated. The tag suture for the capsule was then removed and a Ethibond was used in running fashion to repair the capsule. A size 2 0 drill was then used to make a single passed through the greater trochanter and 1 limb of the tag suture for the piriformis was then passed through the hole using a Chavez suture Passer. The other limb of the stitch was then passed to the abductors with a free needle. Piriformis was then tied down tight for a repair. The IT band was closed using 1. Vicryl interrupted fashion. The superior gluteal fascia was closed with 1. Vicryl in a running locking fashion. A 1. Vicryl was then used in the fat layer to help close down the space. A 2 Vicryl was used in subcutaneous layer followed by eduardo on skin. Complications: none Post-operative Condition: stable Disposition: PACU Plan for aftercare: Patient is weight-bearing as tolerated on left lower extremity. Posterior hip precautions. Six weeks of DVT prophylaxis. Follow-up with Dr. Hill in 10-14 days postop.
[2019-09-17] MEDS: ALBUTEROL 2.5 MG/3 ML NEB (ADULT) INH (10:31)
[2019-09-17] MEDS: OXYCODONE/ACETAMINOPHEN 5/325 TABLET 1 TAB PO ×2 (11:18→20:49)
--- NOTE | 2019-09-17 11:42 | SUR.PHASEI ---
Patient taken up to room in bed in stable condition. Left in room with receiving RN at bedside.
[2019-09-17] MEDS: ALBUTEROL/IPRATROPIUM 3 ML AMPUL INH ×2 (11:53→20:32)
--- NOTE | 2019-09-17 12:10 | PC.NURSE ---
Patient received from PACU, patient awake and oriented and feels thirsty. Coarse lung sounds noted and on 3L NC upon arrival, RT notified and up to give patient a breathing treatment, patient educated on deep breathing and coughing and was able to clear throat, having a productive cough at this time. Transfer orders not available upon patient's arrival, Dr. Mckeon notified and post op orders clarified. Cast to left thumb and wrist in place, patient wiggling fingers without numbness. Aquacel dressing in place to left hip with moderate bruising surrounding noted. Patient wiggling toes and moving legs, denies numbness or tingling. Patient resting comfortably at this time, call light within reach, guillen in place draining clear yellow urine.
--- NOTE | 2019-09-17 12:49 | CM.DANOTE ---
DCP: Case received, EMR reviewed and met with patient. Introduced self and role. Patient also gave permission to call her son, Darryl, for any additional information. Was able to obtain information from patient regarding her baseline activity level and living situation before fall. Was also able to obtain additional information from son, Darryl, and [id number], Brook. DCP assessment completed with information currently available. Patient is a 78 year old female who admitted yesterday morning to the care of the hospitalist/orthopedic team. PCP: Dr. Hicks. Payer: confirmed: Medicare/[employer]. Patient came to the hospital secondary to a ground level fall that occurred at home. Patient had been on uneven ground, for she resides in daylight basement apartment in son's home, and also had some dizziness. She sustained a closed fracture of her hip, as well as a thumb fracture. She had surgery today, and is now back in her room. Was able to meet with patient. She is alert and oriented, stated, she is a little fuzzy, since surgery, and it would be ok to contact her son Darryl, for any additional information. She confirmed that she resides in her son and [id number]'s basement apartment in [facility]. She stated that she is independent at baseline, uses a walker. Discussed halfway, and she stated, I would rather not go to a shelter, due to concerns of COVID. Mentioned to her that [facility] in [place] has no confirmed cases as of now. Stated, can go ahead with referral, but really want home, for she can hire a caregiver if needed, and would be ok with home health. She encouraged this case monitor to also discuss with her son. Spoke to Darryl, her son, and [id number], Yanely. They stated that they hope as first choice that she can go home, for they will have family to stay with downstairs, and she has no stairs to navigate. She also mentioned that they are fixing up her apartment to have toilet riser, and anything she needs. They also stated, home health would be preferred first, unless it is determined that she really needs skilled. They indicated that they are not familiar with home health agencies, and have no preference. They are open to her going to halfway if this is what she needs. P: DCP to continue to follow and be available for any resources needed. Have sent referral to [facility] in case she needs halfway. If home health is an option, will send to agency that is on calendar for the week. Will see how she does with P.T. and look at their recommendations. Yuridia Perkins RN/Digital Printer Operator
[2019-09-17] MEDS: LACTATED RINGERS 1,000 ML 125 ML IV (13:12)
--- NOTE | 2019-09-17 15:14 | P.PN_ITS ---
Subjective Subjective Date Patient Seen: 09/17/19 Time Patient Seen: 07:45 Interval history: Francisca Rdz is a 70-year-old female with past medical history of CLL (never had treament). PAD, COPD, HTN, probable prior CVA (problems with speech, but refused admission at the time in [place]), hypothyroidism, active smoker who presented after a fall in her driveway. She was admitted with a left femur fracture as well as a left thumb proximal phalanx fracture. She underwent operative treatment today. Postoperatively she had some desaturations as requiring some oxygen, however she is still quite sleepy due to the sedating medications of surgery. TSH was mildly decreased at 0.43 with a normal free T4. She was seen prior to operative interventions and comp lained of left hip pain, but was in quite high spirits. Plan to work with physical therapy starting tomorrow and continue pain control throughout today. Exam Vital Signs (past 8 hours): - 09/17/19 08:00 09/17/19 08:08 09/17/19 10:31 Temperature 98.8 F 99.0 F Pulse Rate 98 H 87 Respiratory Rate 18 16 Blood Pressure 121/72 108/64 Pulse Oximetry 91 92 88 L 09/17/19 10:36 09/17/19 10:41 09/17/19 10:46 Temperature 99.1 F 99.1 F 99.1 F Pulse Rate 86 88 92 H Respiratory Rate 15 18 20 Blood Pressure 114/54 L 127/55 L 119/66 Pulse Oximetry 90 L 95 95 09/17/19 11:02 09/17/19 11:16 09/17/19 11:33 Temperature 99.1 F 98.6 F 97.6 F Pulse Rate 93 H 90 78 Respiratory Rate 17 15 17 Blood Pressure 130/59 L 137/60 133/66 Pulse Oximetry 91 94 94 09/17/19 11:54 09/17/19 12:53 09/17/19 12:56 Temperature 97.8 F 97.8 F Pulse Rate 93 H 103 H 90 Respiratory Rate 20 18 17 Blood Pressure 106/61 117/53 L Pulse Oximetry 91 86 L 93 09/17/19 12:57 09/17/19 13:33 09/17/19 14:33 Temperature 98.1 F 98.3 F Pulse Rate 82 77 Respiratory Rate 17 17 Blood Pressure 101/49 L 102/48 L Pulse Oximetry 96 95 95 Oxygen Delivery Method Nasal Cannula Oxygen Flow Rate 3 Narrative Exam Narrative: GENERAL APPEARANCE: Elderly female, no acute distress, well developed well nourished. SKIN: Inspection of the skin reveals no rashes, ulcerations or petechiae. HEENT: Normocephalic atraumatic, extraocular muscles are intact, oropharynx is clear and mucous membranes are dry, neck is supple without adenopathy NECK: Supple and symmetric. There was no thyroid enlargement, and no tenderness, or masses were felt. CHEST: Normal AP diameter and normal contour without any kyphoscoliosis. LUNGS: Auscultation of the lungs revealed no wheezes, rhonchi, or rales. CARDIOVASCULAR: There was a regular rhythm without any murmurs, gallops, rubs, she was mildly tachycardic. Peripheral pulses were 2+ and symmetric. ABDOMEN: Soft and nontender with normal bowel sounds. No ascites was noted. MUSCULOSKELETAL: Left hip and thumb some tenderness. There is significant ecchymosis on her left hand as well as her left hip. EXTREMITIES: No cyanosis, clubbing or edema. NEUROLOGIC: Alert and oriented x 3. Normal affect. Gait was not assessed. Strength is +5/5 in the Upper Extremities and Lower Extremities Bilaterally. Sensation to touch was normal. Objective Labs Result Diagrams: 09/17/19 07:35 09/17/19 07:35 Labs: Laboratory Results - last 24 hr 09/17/19 09/17/19 09/17/19 07:35 07:35 07:35 WBC 11.6 H RBC 3.33 L Hgb 12.0 Hct 35.0 L MCV 105.4 H MCH 36.0 H MCHC 34.1 RDW 14.1 Plt Count 141 L Neut % (Auto) 59.8 Lymph % (Auto) 36.4 [place] % (Auto) 3.6 Eos % (Auto) 0.1 L Baso % (Auto) 0.1 Neut # (Auto) 6900 Lymph # (Auto) 4200 [place] # (Auto) 400 Eos # (Auto) 0 Baso # (Auto) 0 Sodium 140 Potassium 4.4 D Chloride 110 H Carbon Dioxide 24 BUN 19 H Creatinine 0.47 L Estimated GFR > 60.0 BUN/Creatinine Ratio 40.4 H Glucose 74 L Calcium 8.6 Magnesium 1.6 TSH 0.43 L Free T4 1.37 Assessment & Plan Assessment & Plan narrative: Francisca Rdz is a 70-year-old female with past medical history of CLL (never had treament). PAD, COPD, HTN, probable prior CVA (problems with speech, but refused admission at the time in [place]), hypothyroidism, active smoker who presented after a fall yesterday in her dri veway. She is admitted to the medicine service with a left femur fracture and underwent operative intervention today. She also has a left thumb proximal phalanx fracture for which she had a cast placed in the OR. 1. Left femur fracture, acute, present on admission -management per orthopedic surgery, appreciate assistance with management -now status post left hip arthroplasty on 09/17/2019. -continue pain management with morphine as needed -zofran for nausea -PT OT eval and treat tomorrow 2. Left thumb proximal phalanx fracture, acute, present on admission -patient was placed in a cast per Orthopedic surgery in the operating room today. 3. COPD, chronic, stable - duonebs BID to replace home dulera - RT eval and treat, prn albuterol 4. Hypertension, chronic, stable - will hold HCTZ as Na 136 on admission. - BP controlled with pain medications, restart with alternative agent when ne eded, preferrably lisinopril after OR if she requires an antihypertensive. 5. PAD, chronic, stable - asa 81 mg 6. CLL, stable -continue to follow CBC 7. Hypokalemia - will replete. 8. Probable history of CVA Code: Full, states she does not have a medical power of compliance attorney for a surrogate decision maker. She does have 3 sons and states that they often disagree. She does have an advanced directive which we will work on obtaining. Dispo: Admitted under inpatient status as her stay is likely to exceed 2 midnights, pending PT/OT evaluations for discharge, possible SNF placement vs. home with home health. IF SNF placement will consider repeat COVID testing, was negative 09/16/2019 at 10 am. DVT: Lovenox daily Diet: Heart healthy diet to resume this evening after operative interventions COVID-19 COVID-19 status: Negative Result date/Date tested (Pos, Neg/Pending): 09/16/19
[2019-09-18] VITALS (13 sets, daily range): BP systolic 108–140; BP diastolic 38–87; PULSE 71–96; RESP 16–18; TEMP 36.3–37.1; O2SAT 88–96
[2019-09-18] MEDS: CEFAZOLIN 2 GM/100 ML FROZ.PIGGY IV (00:57)
[2019-09-18] MEDS: OXYCODONE/ACETAMINOPHEN 5/325 TABLET 1 TAB PO ×5 (00:57→17:17)
[2019-09-18 05:40] LABS: Add Manual Diff / Slide Review NO; Basophils Absolute Auto 0 /uL (0-100); Basophils Percent Auto 0.3 % (0-2); Eosinophils Absolute Auto 0 /uL (0-450); Eosinophils Percent Auto 0.1 % (2-4); Hematocrit 33.9 % (36-46); Hemoglobin 11.4 g/dL (12.0-16.0); Lymphocytes Absolute Auto 3700 /uL (1100-4500); Lymphocytes Percent Auto 35.5 % (25-40); Mean Corpuscular HGB Conc 33.5 % (30-36); Mean Corpuscular Hemoglobin 35.6 PG (26-34); Mean Corpuscular Volume 106.1 fL (80-100); Monocytes Absolute Auto 500 /uL (0-900); Monocytes Percent Auto 5.3 % (3-14); Neutrophils Absolute Auto 6100 /uL (1500-7000); Neutrophils Percent Auto 58.8 % (50-75); Platelet Count 95 X10^3/uL (150-400); White Blood Cell Count 10.4 X10^3/uL (4.5-11.0)
[2019-09-18 05:49] LABS: BUN Creatinine Ratio 39.5 (6-22); Blood Urea Nitrogen 17 mg/dL (7-17); Calcium 8.7 mg/dL (8.4-10.2); Carbon Dioxide 27 mmol/L (22-32); Chloride 103 mmol/L (98-107); Estimated Glomerular Filt Rate > 60.0 mL/min (>60); Glucose 113 mg/dL (80-110); HEMOLYSIS < 15 (0-50); Magnesium 1.6 mg/dL (1.6-2.3); Potassium 4.3 mmol/L (3.4-5.1); Sodium 133 mmol/L (137-145)
[2019-09-18] MEDS: LACTATED RINGERS 1,000 ML 125 ML IV (06:36)
[2019-09-18] MEDS: ALBUTEROL/IPRATROPIUM 3 ML AMPUL INH ×2 (08:51→19:59)
[2019-09-18] MEDS: LEVOTHYROXINE 50 MCG TABLET PO (09:17)
[2019-09-18] MEDS: ENOXAPARIN 40 MG/0.4 ML SYRINGE SUBCUT (09:17)
[2019-09-18] MEDS: ATORVASTATIN 20 MG TABLET PO (09:17)
[2019-09-18] MEDS: ASPIRIN EC 81 MG TABLET PO (09:17)
--- NOTE | 2019-09-18 10:09 | PM.PN.1 ---
Subjective Subjective Date Patient Seen: 09/18/19 Time Patient Seen: 10:09 Interval history: Francisca Rdz is a 70-year-old female with past medical history of CLL (never had treament). PAD, COPD, HTN, probable prior CVA (problems with speech, but refused admission at the time in [place]), hypothyroidism, active smoker who presented after a fall in her driveway. She was admitted with a left femur fracture as well as a left thumb proximal phalanx fracture. She underwent operative treatment yesterday. Postoperatively she had some desaturations which required oxygen and she is down to 1L [place], she often comes up when alert. She complains of slight pain upon movement, but states that her pain is quite controlled. She denies any nausea, vomiting, fever, chills, abdominal pain. Exam Vital Signs (past 8 hours): - 09/18/19 04:31 09/18/19 04:45 09/18/19 08:03 Temperature 97.4 F L Pulse Rate 71 Respiratory Rate 18 Blood Pressure 121/38 L Pulse Oximetry 93 94 94 09/18/19 08:52 Temperature Pulse Rate 78 Respiratory Rate 18 Blood Pressure Pulse Oximetry 91 Oxygen Delivery Method Nasal Cannula Oxygen Flow Rate 1 Narrative Exam Narrative: GENERAL APPEARANCE: Elderly female, no acute distress, well developed well nourished. SKIN: Inspection of the skin reveals no rashes, ulcerations or petechiae. HEENT: Normocephalic atraumatic, extraocular muscles are intact, oropharynx is clear and mucous membranes are dry, neck is supple without adenopathy NECK: Supple and symmetric. There was no thyroid enlargement, and no tenderness, or masses were felt. CHEST: Normal AP diameter and normal contour without any kyphoscoliosis. LUNGS: Auscultation of the lungs revealed no wheezes, rhonchi, or rales. CARDIOVASCULAR: There was a regular rate and rhythm without any murmurs, gallops, rubs. Peripheral pulses were 2+ and symmetric. ABDOMEN: Soft and nontender with normal bowel sounds. No ascites was noted. MUSCULOSKELETAL: L hip dressing c/d/i. EXTREMITIES: No cyanosis, clubbing or edema. NEUROLOGIC: Alert and oriented x 3. Normal affect. Gait was not assessed. Strength is +5/5 in the Upper Extremities and Lower Extremities Bilaterally. Sensation to touch was normal. Objective Labs Result Diagrams: 09/18/19 05:25 09/18/19 05:25 Labs: Laboratory Results - last 24 hr 09/18/19 09/18/19 05:25 05:25 WBC 10.4 RBC 3.20 L Hgb 11.4 L Hct 33.9 L MCV 106.1 H MCH 35.6 H MCHC 33.5 RDW 14.0 Plt Count 95 L Neut % (Auto) 58.8 Lymph % (Auto) 35.5 [place] % (Auto) 5.3 Eos % (Auto) 0.1 L Baso % (Auto) 0.3 Neut # (Auto) 6100 Lymph # (Auto) 3700 [place] # (Auto) 500 Eos # (Auto) 0 Baso # (Auto) 0 Sodium 133 L Potassium 4.3 Chloride 103 Carbon Dioxide 27 BUN 17 Creatinine 0.43 L Estimated GFR > 60.0 BUN/Creatinine Ratio 39.5 H Glucose 113 H Calcium 8.7 Magnesium 1.6 Assessment & Plan Assessment & Plan narrative: Francisca Rdz is a 70-year-old female with past medical history of CLL (never had treament). PAD, COPD, HTN, probable prior CVA (problems with speech, but refused admission at the time in [place]), hypothyroidism, active smoker who presented after a fall yesterday in her driveway. She is admitted to the medicine service with a left femur fracture and underwent operative intervention today. She also has a left thumb proximal phalanx fracture for which she had a cast placed in the OR. 1. Left femur fracture, acute, present on admission -management per orthopedic surgery, appreciate assistance with management -now status post left hip arthroplasty on 09/17/2019. -continue pain management with oral medications as tolerated -zofran for nausea -continue PT/OT 2. Left thumb proximal phalanx fracture, acute, present on admission -patient was placed in a cast per Orthopedic surgery in the operating room. 3. COPD, chronic, stable - duonebs BID to replace home dulera - RT eval and treat, prn albuterol - requiring small amount of supplemental oxygen as noted above, continue to wean, goal O2 88% 4. Hypertension, chronic, stable - will hold HCTZ as Na 136 on admission. - BP controlled with pain medications, restart with alternative agent when needed, preferrably lisinopril after OR if she requires an antihypertensive, which she currently does not. 5. PAD, chronic, stable - asa 81 mg 6. CLL, stable -continue to follow CBC 7. Hypokalemia - improved with repletion. 8. Probable history of CVA Code: Full, states she does not have a medical power of corporate associate attorney for a surrogate decision maker. She does have 3 sons and states that they often disagree. She does have an advanced directive which we will work on obtaining. Dispo: Admitted under inpatient status as her stay is likely to exceed 2 midnights, pending PT/OT evaluations for discharge, possible SNF placement vs. home with home health. IF SNF placement will consider repeat COVID testing, was negative 09/16/2019 at 10 am. DVT: Lovenox daily Diet: Heart healthy diet to resume this evening after operative interventions
--- NOTE | 2019-09-18 10:35 | PM.PN.1 ---
Subjective Subjective Date Patient Seen: 09/18/19 Time Patient Seen: 10:35 Interval history: Patient is a 78 yo female with multiple medical co-morbidities. She sustained a displaced left fmeoral neck fracture and a left thumb fracture after a GLF. She is now post-op day 1 from left hip cemented hemiarthroplasty as well as thumb spica cast palcement for the left hand. Overall she is doing well. Up with PT this am, slow. Pain is well controlled. Thumb spica cast complicates FWW use. Exam Vital Signs (past 8 hours): - 09/18/19 04:31 09/18/19 04:45 09/18/19 08:03 Temperature 97.4 F L Pulse Rate 71 Respiratory Rate 18 Blood Pressure 121/38 L Pulse Oximetry 93 94 94 09/18/19 08:52 Temperature Pulse Rate 78 Respiratory Rate 18 Blood Pressure Pulse Oximetry 91 Oxygen Delivery Method Nasal Cannula Oxygen Flow Rate 1 Narrative Exam Narrative: NV intact in LLE. Chronic peripheral vascular disease skin changes. Up walking with FWW. AAOx3 Objective Labs Result Diagrams: 09/18/19 05:25 09/18/19 05:25 Labs: Laboratory Results - last 24 hr 09/18/19 09/18/19 05:25 05:25 WBC 10.4 RBC 3.20 L Hgb 11.4 L Hct 33.9 L MCV 106.1 H MCH 35.6 H MCHC 33.5 RDW 14.0 Plt Count 95 L Neut % (Auto) 58.8 Lymph % (Auto) 35.5 [place] % (Auto) 5.3 Eos % (Auto) 0.1 L Baso % (Auto) 0.3 Neut # (Auto) 6100 Lymph # (Auto) 3700 [place] # (Auto) 500 Eos # (Auto) 0 Baso # (Auto) 0 Sodium 133 L Potassium 4.3 Chloride 103 Carbon Dioxide 27 BUN 17 Creatinine 0.43 L Estimated GFR > 60.0 BUN/Creatinine Ratio 39.5 H Glucose 113 H Calcium 8.7 Magnesium 1.6 Assessment & Plan Assessment & Plan narrative: Patient is a 78 yo female with multiple medical comorbidites including prior stroke, CLL and COPD. She is now s/p left hip cemented hemiarthroplasty and left thumb spica cast application. 1. Left femoral neck fracture - now status post left hip cemented della-arthroplasty on 09/17/2019 - WBAT LLE - Posterior hip precautions - PT OT eval and treat, ongoing - continue DVT prophylaxis per medical management - recommend platform attachment for FWW on left 2. Left thumb base of proximal phalanx fracture - thumb spica cast - NWB through hand, OK to weight bear through elbow COVID-19 COVID-19 status: Negative Time Spent With Patient Time with patient: 15-24 minutes
--- NOTE | 2019-09-18 11:48 | PT.IIE ---
Current Diagnoses Unspecified intracapsular fracture of left femur, initial encounter for closed fracture (09/16/19) Surgery Performed Operation Date: 09/17/19 08:00 Actual Procedures p Hip Cemented Hemiarthroplasty, placement of cast left thumb(Left) - Tyler Mckeon MD Surgical History (Last Reviewed 09/16/19 @ 14:03 by Tyler Mckeon MD) History of left knee replacement (Acute) Medical History (Last Reviewed 09/16/19 @ 14:03 by Tyler Mckeon MD) COPD (chronic obstructive pulmonary disease) (Acute) Leukemia (Acute) Physical Therapy Inpatient Evaluation/Re-Eval M1 PT/OT-IP Prior Functional Status Start: 09/18/19 08:28 Freq: NEEDED Status: Active Protocol: Document 09/18/19 11:26 AW (Rec: 09/18/19 11:48 AW [id number]) Medical Review Prior Functional Status Medical History Reviewed Yes Diet/Fluid Consistency Regular Communication WNL Mobility and Gait Independent without assistive device. Pt limits her ambulation due to shortness of breath. Activities of Daily Living and IADL's Independent Prior Functional Level (Other details) Pt drives, manages her own finances and medications Social History Household Members family Living Arrangements House Number of Floors (Floors) One Floor Number of Stairs To Enter/Railing? Level entrance Home Environment Standard Height Toilet,Tub/ Shower Home Equipment Raised Toilet Seat Without Armrests,Hand Held Shower,Grab Bars In Shower Additional Social History Comment Pt lives in a basement apartment with her son, Darryl, and DIL, Brook, living upstairs. She has a large bathtub. She tends to sleep in a recliner. There is an additional bedroom in her apartment where someone could stay if she discharged to home . She states her granddaughter is trained as an EMT and could stay with her. Apparently, her granddaughter' s is a PT student who could also stay with her. M2 PT-IP Current Condition Start: 09/18/19 08:28 Freq: NEEDED Status: Active Protocol: Document 09/18/19 11:26 AW (Rec: 09/18/19 11:48 AW [id number]) Physical Therapy Current Condition Current Condition Evaluation Date 09/18/19 Treatment Diagnosis L femur fx s/p hemiarthro; L 1st prox phalanx fx; difficulty in walking Onset Date 09/16/19 Precautions Posterior Hip Precautions No Hip Flexion > 90 degrees,No Hip Internal Rotation,No Hip Adduction Brace thumb spica splint on left wrist Other Precautions per Dr. Mckeon, NWB left wrist Weight Bearing Status Weight Bearing Status Weight Bear as Tolerated M3 PT-IP Subjective Start: 09/18/19 08:28 Freq: NEEDED Status: Active Protocol: Document 09/18/19 11:26 AW (Rec: 09/18/19 11:48 AW [id number]) Subjective Physical Therapy Visit Type Type Initial Evaluation Visit Start Time 09:55 Visit Stop Time 10:41 Total Visit Minutes 46 Number of FOUNDRY PROCESS ENGINEER Visits 0 Physical Therapy Visit Comments Patient Comments Pt feeling good and agreeable to work with PT Patient Goals Pt expressed preference to go home and to avoid SNF due to COVID concerns. Therapy Pain Assessment Pain When Pain Assessed During Mobility Pain Present Pain Present Pain Reported Location Left Hip Scale Used 0/10 at rest; 2/10 with mobility Pain Management Techniques Apply Cold,Re-positioning, Timing of Activity with Medications M4 PT-IP Mobility and Gait Start: 09/18/19 08:28 Freq: NEEDED Status: Active Protocol: Document 09/18/19 11:26 AW (Rec: 09/18/19 11:48 AW [id number]) PT-Bed Mobility Assessment Supine to Sit Supine to Sit Moderate Assistance,1 Person Assistance,Head of Bed Elevated Scooting Scooting to Edge of Bed Minimal Assistance PT-Transfer Assessment Sit to and From Stand Sit to and from Stand Moderate Assistance,1 Person Assistance,Use of Upper Extremities Equipment Transfer Assistive Device Gait Belt,Front Wheeled Walker Orthotic/Prosthetic Devices or Brace: No Transfers Transfer Destination Chair Transfer Technique pt ambulated with FWW Transfer Ability Level of Assist Minimal Assistance,1 Person Assistance Comments Mobility Comments Pt was educated extensively on posterior hip precautions prior to mobility. She required mod A x 1 for supine to sit with HOB elevated 45 degrees. She was able to move both legs toward EOB with min support for operative leg. She scooted toward EOB min A x 1 with minimal complaint of pain . BP sitting EOB was 126/74 and SpO2 was 93% on 1L supp O2 via NC. Pt stood using FWW mod A x 1 and trialed room air but SpO2 dropped to 87%. NC was replaced and SpO2 shahriar back to 92%. Pt had difficulty grasping the walker with her left hand and was advised to minimize weightbearing through that wrist. Pt ambulated 3 feet to the chair and required max cues and min A x 1 to maintain posterior precautions during transfer to chair. Dr. Mckeon then entered the room and clarified that the pt should technically be NWB left wrist. PT obtained a platform and attached it after pt transferred. Will trial at PM session. Pt was positioned in the chair with call light and all needs within reach. RN notified of pt's position. Gait Assessment Gait Gait Assistance Required: Minimum Assistance,1 Person Assist Distance (Feet) 3 Able to Maintain Weight Bearing Status Yes During Gait Assistive Devices Assistive Device Gait Belt,Front Wheeled Walker Orthotic/Prosthetic Devices or Brace: Yes Gait Deviations General Gait Pattern Antalgic,Decreased Stride Length,Decreased Feet Clearance,Flexed Trunk,Step-to Gait Factors Limiting Gait Function Factors Limiting Gait Function Decreased Activity Tolerance, Decreased Strength,Pain,Poor Safety Awareness Comments Gait Comments See mobility comments. Platform attached to walker after session. Will trial at PM treatment. Stair Climbing Assessment Comments Stair Climbing Comments Not assessed. PT-Balance Assessment Sitting Balance and Reactions Static Sitting Balance Ability Normal Dynamic Sitting Balance Ability Normal Standing Balance and Reactions Static Standing Balance Ability Good Dynamic Standing Balance Ability Good Device Used FWW M5 PT-IP Objective Assessments Start: 09/18/19 08:28 Freq: NEEDED Status: Active Protocol: Document 09/18/19 11:26 AW (Rec: 09/18/19 11:48 AW [id number]) Orientation Orientation/Cognition Level of Alertness Alert Orientation Name,Day of Week,Place, Situation Language Function Ability No Deficits Noted Safety Awareness Understands Safety Issues Memory Description No Deficits Noted Gross Range of Motion Upper Extremity ROM Assessment Left Impaired Impairments left wrist in spica splint Lower Extremity ROM Assessment Left Impaired Strength Lower Extremity Strength Assessment Left Impaired Comments Strength Comments RLE grossly 4/5 Coordination Assessment Gross Coordination Gross Coordination WNL Sensation Assessment Sensation Gross Sensation WNL Muscle Tone Muscle Tone WNL Yes M6 PT-IP Treatment Start: 09/18/19 08:28 Freq: NEEDED Status: Active Protocol: Document 09/18/19 11:26 AW (Rec: 09/18/19 11:48 AW [id number]) Physical Therapy Treatment Exercises Exercises Ankle Pumps Education Education Provided Precautions,Weight Bearing Status,Post-Op Packet,Safety Other Treatments Other Treatment Performed Provided education on role of PT, plan of care, weightbearing status, and posterior hip precautions. M7 PT-IP Assessment and Plan Start: 09/18/19 08:28 Freq: NEEDED Status: Active Protocol: Document 09/18/19 11:26 AW (Rec: 09/18/19 11:48 AW [id number]) PT Summary Assessment and Plan Potential Rehabilitation Potential Good Status of Condition at Evaluation Stable Summary Impairments Pain,ROM,Strength,Balance,Bed Mobility,Transfers,Gait, Activity Tolerance Assessment Summary Francisca is a 78 yo woman seen for PT evaluation after left hip hemiarthroplasty following GLF with left femur fracture. She is also in a thumb spica splint for conservative management of left 1st proximal phalanx fracture. At baseline, pt lives in a basement apartment with her son upstairs. She is indepenent with all functional mobility and ADL's. On evaluation, she required mod assist with most mobility and frequent cues/education on posterior hip precautions. On first meeting, pt expressed strong preference to avoid SNF rehab but she is also concerned about being a burden to her family. By end of evaluation, pt had a more favorable attitude toward short-term rehab and was more willing to consider it as an option. Pt will likely require SNF rehab before safe return to home, but PT will continue to assess and refine recommendation. Pt does have family members who may be able to stay with her if she could discharge to home. Her son and [id number] upstairs both work, but other family members could assist. If pt does discharge to home, she will need to identify 1-2 people who will be her primary caregivers and have them participate in caregiver training. Goals Bed Mobility Goal Contact Guard Assistance Transfer Goal Contact Guard Assistance,Front Wheeled Walker Gait Goal Contact Guard Assistance,Front Wheel Walker Gait Distance 100 Days to Meet Goals 10 Frequency of Treatment Frequency Of Treatment Twice a Day Treatment Plan Physical Therapy Treatment Plan Bed Mobility Training,Transfer Training,Gait Training, Therapeutic Exercise,Balance Retraining,Post Op Education, Discharge Planning,Hot or Cold Pack Other Recommendations and Next Treatment ther ex, review precautions, Focus assess gait with platform walker Recommendations To Nursing Amount of Assist Needed 1 Person Assist Discharge Recommendations PT Discharge Recommendations Home with Assistance,Home Health,SNF Rehab Other Discharge Recommendations SNF vs home with assist and HH depending on progress Equipment Needed for Home Before FWW, tub transfer bench, Discharge bedside commode Transportation Needs at Discharge Private Vehicle,Wheelchair/ Cabulance
--- NOTE | 2019-09-18 11:49 | CM.DPC ---
Addendum entered by Yuridia Perkins R.N. 09/18/19 14:51: Spoke to patient's son, Darryl, for he called telephonic case manager's desk. Stated, he wanted to make sure that his mother wanted to go to care home because she was a burden. Let him know that patient did not indicate this, she was just concerned about some of the hip precautions. Let him know that patient changes her mind, she can do home health. Let him also know that [facility] can accept her Thursday. Son stated that he will speak to his mother to ensure that this what she wants, for he stated that they have the capability of caring for her at home if needed. He stated that he would get back to us, after speaking to his mother. Original Note: ELLIOT Cont: Met with patient in her room. She had just finished working with P.T., and was sitting up in her chair. After speaking to Franny, physical therapist, she mentioned that patient admitted that she may need care home after all, before going home. Patient is on hip precautions, and has to remember her limitations. Spoke to Julia this morning, from [facility], who stated that they can accept patient this Thursday. Met with patient and brought her in Medicare Choice List. She looked it over, stated, I don't want to go to [facility], but would really like to go here in town, because my doctor is here. Still encouraged her to make a second choice, but stated that [facility] should be able to accept her on Thursday. P: JAVIERP to continue to follow. Will complete PASSR, and will confirm with Julia at [facility] that patient has decided on care home. Yuridia Perkins RN/Instructional Support Technician
--- NOTE | 2019-09-18 13:59 | PT.IPTN ---
Current Diagnoses Unspecified intracapsular fracture of left femur, initial encounter for closed fracture (09/16/19) Surgery Performed Operation Date: 09/17/19 08:00 Actual Procedures p Hip Cemented Hemiarthroplasty, placement of cast left thumb(Left) - Tyler Mckeon MD Physical Therapy Treatment Note M2 PT-IP Current Condition Start: 09/18/19 08:28 Freq: NEEDED Status: Active Protocol: Document 09/18/19 11:26 AW (Rec: 09/18/19 11:48 AW [id number]) Physical Therapy Current Condition Current Condition Evaluation Date 09/18/19 Treatment Diagnosis L femur fx s/p hemiarthro; L 1st prox phalanx fx; difficulty in walking Onset Date 09/16/19 Precautions Posterior Hip Precautions No Hip Flexion > 90 degrees,No Hip Internal Rotation,No Hip Adduction Brace thumb spica splint on left wrist Other Precautions per Dr. Mckeon, NWB left wrist Weight Bearing Status Weight Bearing Status Weight Bear as Tolerated M3 PT-IP Subjective Start: 09/18/19 08:28 Freq: NEEDED Status: Active Protocol: Document 09/18/19 13:48 AW (Rec: 09/18/19 13:59 AW [id number]) Subjective Physical Therapy Visit Type Type Treatment Note Visit Start Time 13:12 Visit Stop Time 13:39 Total Visit Minutes 27 Number of EXTRUSION TECHNICIAN Visits 0 Physical Therapy Visit Comments Patient Comments Pt requesting return to bed Therapy Pain Assessment Pain When Pain Assessed At Rest Pain Present Pain Present Pain Reported Location Left Hip Intensity 6 Scale Used Numeric (1 - 10) Pain Management Techniques Apply Cold,Re-positioning, Timing of Activity with Medications M4 PT-IP Mobility and Gait Start: 09/18/19 08:28 Freq: NEEDED Status: Active Protocol: Document 09/18/19 13:48 AW (Rec: 09/18/19 13:59 AW [id number]) PT-Bed Mobility Assessment Sit to Supine Sit to Supine Minimal Assistance,1 Person Assistance,Head of Bed Elevated Scooting Scooting Up and Down in Bed Standby Assistance PT-Transfer Assessment Sit to and From Stand Sit to and from Stand Moderate Assistance,1 Person Assistance,Use of Upper Extremities Equipment Transfer Assistive Device Gait Belt,Platform Walker Orthotic/Prosthetic Devices or Brace: No Transfers Transfer Destination Bed Transfer Technique pt ambulated with platform walker Transfer Ability Level of Assist Minimal Assistance,1 Person Assistance Comments Mobility Comments Pt sitting up in chair upon PT arrival. She completed sit to stand with mod cues and mod A x 1 using platform walker to offweight left wrist. She ambulated out of the room for a total of 30 feet using platform walker min A x 1. She verbalized and executed her strategy to turn toward her right to avoid internal rotation of the left hip without cues. Pt returned to the room and sat on the door side of the bed, completing sit to supine with HOB elevated min A x 1 to support the operative leg. She then scooted herself up in the bed SBA and was positioned there with call light and all needs within reach, bed alarm armed for safety. Gait Assessment Gait Gait Assistance Required: Minimum Assistance,1 Person Assist Distance (Feet) 30 Able to Maintain Weight Bearing Status Yes During Gait Assistive Devices Assistive Device Gait Belt,Platform Walker Gait Deviations General Gait Pattern Antalgic,Decreased Stride Length,Decreased Feet Clearance,Flexed Trunk,Step-to Gait Factors Limiting Gait Function Factors Limiting Gait Function Decreased Activity Tolerance, Decreased Strength,Pain,Poor Safety Awareness Comments Gait Comments Pt was safe with platform walker but required cues to minimize WB with left wrist during transfers. M5 PT-IP Objective Assessments Start: 09/18/19 08:28 Freq: NEEDED Status: Active Protocol: Document 09/18/19 11:26 AW (Rec: 09/18/19 11:48 AW [id number]) Orientation Orientation/Cognition Level of Alertness Alert Orientation Name,Day of Week,Place, Situation Language Function Ability No Deficits Noted Safety Awareness Understands Safety Issues Memory Description No Deficits Noted Gross Range of Motion Upper Extremity ROM Assessment Left Impaired Impairments left wrist in spica splint Lower Extremity ROM Assessment Left Impaired Strength Lower Extremity Strength Assessment Left Impaired Comments Strength Comments RLE grossly 4/5 Coordination Assessment Gross Coordination Gross Coordination WNL Sensation Assessment Sensation Gross Sensation WNL Muscle Tone Muscle Tone WNL Yes M6 PT-IP Treatment Start: 09/18/19 08:28 Freq: NEEDED Status: Active Protocol: Document 09/18/19 13:48 AW (Rec: 09/18/19 13:59 AW [id number]) Physical Therapy Treatment Exercises Exercises Ankle Pumps,Gluteal Sets,Quad Sets,Heel Slides Education Education Provided Precautions,Weight Bearing Status,Safety Other Treatments Other Treatment Performed Pt able to recall 2/3 precautions. Functionally, she is very aware of her precautions and takes proactive steps to maintain them. M7 PT-IP Assessment and Plan Start: 09/18/19 08:28 Freq: NEEDED Status: Active Protocol: Document 09/18/19 13:48 AW (Rec: 09/18/19 13:59 AW [id number]) PT Summary Assessment and Plan Summary Impairments Pain,ROM,Strength,Balance,Bed Mobility,Transfers,Gait, Activity Tolerance Progress Towards Goals Progressing Toward Goals Assessment Summary Francisca had increased pain this afternoon but was able to progress gait distance using platform walker. She discussed her rehab options again, expressing greater interest in SNF rehab due to the reality of her situation settling in. Goals Bed Mobility Goal Contact Guard Assistance Transfer Goal Contact Guard Assistance,Front Wheeled Walker Gait Goal Contact Guard Assistance,Front Wheel Walker Gait Distance 100 Days to Meet Goals 10 Frequency of Treatment Frequency Of Treatment Twice a Day Treatment Plan Physical Therapy Treatment Plan Bed Mobility Training,Transfer Training,Gait Training, Therapeutic Exercise,Balance Retraining,Post Op Education, Discharge Planning,Hot or Cold Pack Other Recommendations and Next Treatment ther ex, review precautions, Focus continue d/c planning discussion Recommendations To Nursing Amount of Assist Needed 1 Person Assist Discharge Recommendations PT Discharge Recommendations Home with Assistance,Home Health,SNF Rehab Other Discharge Recommendations SNF vs home with assist and HH depending on progress Equipment Needed for Home Before FWW, tub transfer bench, Discharge bedside commode if going home Transportation Needs at Discharge Private Vehicle,Wheelchair/ Cabulance
[2019-09-18] MEDS: OXYCODONE/ACETAMINOPHEN 5/325 TABLET 2 TAB PO (21:26)
[2019-09-18] MEDS: SODIUM CHLORIDE 0.9% FLUSH 10 ML IV (21:26)
[2019-09-19] VITALS (11 sets, daily range): BP systolic 127–148; BP diastolic 57–70; PULSE 77–101; RESP 16–18; TEMP 36.8–37.3; O2SAT 92–97
[2019-09-19] MEDS: OXYCODONE/ACETAMINOPHEN 5/325 TABLET 1 TAB PO ×3 (02:27→23:57)
[2019-09-19 05:56] LABS: Add Manual Diff / Slide Review NO; Basophils Absolute Auto 0 /uL (0-100); Basophils Percent Auto 0.5 % (0-2); Eosinophils Absolute Auto 100 /uL (0-450); Eosinophils Percent Auto 1.4 % (2-4); Hematocrit 30.2 % (36-46); Hemoglobin 10.4 g/dL (12.0-16.0); Lymphocytes Absolute Auto 4100 /uL (1100-4500); Lymphocytes Percent Auto 48.3 % (25-40); Mean Corpuscular HGB Conc 34.5 % (30-36); Mean Corpuscular Hemoglobin 36.2 PG (26-34); Mean Corpuscular Volume 104.9 fL (80-100); Monocytes Absolute Auto 300 /uL (0-900); Monocytes Percent Auto 4.1 % (3-14); Neutrophils Absolute Auto 3800 /uL (1500-7000); Neutrophils Percent Auto 45.7 % (50-75); Platelet Count 129 X10^3/uL (150-400); Red Blood Cell Count 2.88 X10^6/uL (4.0-5.2); Red Cell Distribution Width 14.1 % (11.6-14.8); White Blood Cell Count 8.4 X10^3/uL (4.5-11.0)
[2019-09-19 06:13] LABS: BUN Creatinine Ratio 29.2 (6-22); Blood Urea Nitrogen 14 mg/dL (7-17); Calcium 8.8 mg/dL (8.4-10.2); Carbon Dioxide 32 mmol/L (22-32); Chloride 102 mmol/L (98-107); Estimated Glomerular Filt Rate > 60.0 mL/min (>60); Glucose 92 mg/dL (80-110); HEMOLYSIS < 15 (0-50); Magnesium 1.7 mg/dL (1.6-2.3); Potassium 4.4 mmol/L (3.4-5.1); Sodium 135 mmol/L (137-145)
[2019-09-19] MEDS: ALBUTEROL/IPRATROPIUM 3 ML AMPUL INH ×2 (08:12→19:28)
[2019-09-19] MEDS: LEVOTHYROXINE 50 MCG TABLET PO (08:13)
[2019-09-19] MEDS: ENOXAPARIN 40 MG/0.4 ML SYRINGE SUBCUT (08:13)
[2019-09-19] MEDS: ATORVASTATIN 20 MG TABLET PO (08:13)
[2019-09-19] MEDS: ASPIRIN EC 81 MG TABLET PO (08:13)
[2019-09-19] MEDS: SODIUM CHLORIDE 0.9% FLUSH 10 ML IV ×2 (08:16→20:36)
--- NOTE | 2019-09-19 08:26 | P.PN_ITS ---
Subjective Subjective Date Patient Seen: 09/19/19 Time Patient Seen: 08:26 Interval history: Patient is a 78 yo female with multiple medical co- morbidities. She sustained a displaced left femoral neck fracture and a left thumb fracture after a GLF. She is now post-op day 2 from left hip cemented hemiarthroplasty as well as thumb spica cast placement for the left hand. Overall she is doing well. Up with PT yesterday, slow. Pain is well controlled. Thumb spica cast complicates FWW use. Patient is leaning towards SNF. Exam Vital Signs (past 8 hours): - 09/19/19 04:00 09/19/19 06:14 09/19/19 07:53 Temperature 98.7 F Pulse Rate 77 Respiratory Rate 18 Blood Pressure 129/67 Pulse Oximetry 94 94 94 09/19/19 08:24 Temperature Pulse Rate Respiratory Rate Blood Pressure Pulse Oximetry 94 Oxygen Delivery Method Nasal Cannula Oxygen Flow Rate 1 Narrative Exam Narrative: NV intact in LLE. Chronic peripheral vascular disease skin francis es. Up walking with FWW. AAOx3 Objective Labs Result Diagrams: 09/19/19 05:45 09/19/19 05:45 Labs: Laboratory Results - last 24 hr 09/19/19 09/19/19 05:45 05:45 WBC 8.4 RBC 2.88 L Hgb 10.4 L Hct 30.2 L MCV 104.9 H MCH 36.2 H MCHC 34.5 RDW 14.1 Plt Count 129 L Neut % (Auto) 45.7 L Lymph % (Auto) 48.3 H [place] % (Auto) 4.1 Eos % (Auto) 1.4 L Baso % (Auto) 0.5 Neut # (Auto) 3800 Lymph # (Auto) 4100 [place] # (Auto) 300 Eos # (Auto) 100 Baso # (Auto) 0 Sodium 135 L Potassium 4.4 Chloride 102 Carbon Dioxide 32 BUN 14 Creatinine 0.48 L Estimated GFR > 60.0 BUN/Creatinine Ratio 29.2 H Glucose 92 Calcium 8.8 Magnesium 1.7 Assessment & Plan Assessment & Plan narrative: Patient is a 78 yo female with multiple medical comorbidites including prior stroke, CLL and COPD. She is now s/p left hip cemented hemiarthroplasty and left thumb spica cast application. 1. Left femoral neck fracture - now status post left hip cemented della-arthroplasty on 09/17/2019 - WBAT LLE - Posterior hip precautions - PT/OT eval and treat, ongoing - continue DVT prophylaxis per medical management - recommend platform attachment for FWW on left 2. Left thumb base of proximal phalanx fracture - thumb spica cast - NWB through hand, OK to weight bear through elbow COVID-19 COVID-19 status: Negative Time Spent With Patient Time with patient: less than 15 minutes
--- NOTE | 2019-09-19 09:58 | PC.NURSE ---
Addendum entered by Kaylie Stacy R.N. 09/19/19 14:56: Weaned off O2 to RA, O2 sats 94% while awake. Removed F/C per nurse driven protocol, patient mobilizing. 800 ml clear yellow urine output from guillen at 1445. Addendum entered by Kaylie Stacy R.N. 09/19/19 10:18: Noted last BM on September 15, no PRN or scheduled bowel meds, notified Dr. Woodall. Original Note: Day shift note: Awake, alert, and pleasant. Received on O2 at 1L via NC, sats 94%. Occasional congested/moist cough noted, states it happens when she wakes up in the mornings at home. Encouraged IS use, cough, and deep breathing. Up OOB with PT, ambulated in hallway with FWW. Notified by ICU regarding HR increase to 140's while patient ambulating, no c/o dizziness, recovered at rest. Skin warm, pink, and dry. CMS intact to LLE. LUE fingers warm, pink, normal sensation, unable to assess radial pulse. High fall risk precautions maintained, Calls appropriately for staff assistance.
--- NOTE | 2019-09-19 10:25 | OT.IP.EVAL ---
Current Diagnoses Unspecified intracapsular fracture of left femur, initial encounter for closed fracture (09/16/19) Surgery Performed Operation Date: 09/17/19 08:00 Actual Procedures p Hip Cemented Hemiarthroplasty, placement of cast left thumb(Left) - Tyler Mckeon MD Past Medical History (Last Reviewed 09/16/19 @ 14:03 by Tyler Mckeon MD) COPD (chronic obstructive pulmonary disease) (Acute) Leukemia (Acute) Surgical History (Last Reviewed 09/16/19 @ 14:03 by Tyler Mckeon MD) History of left knee replacement (Acute) Occupational Therapy Inpatient Evaluation/Re-Eval M1 PT/OT-IP Prior Functional Status Start: 09/19/19 11:00 Freq: NEEDED Status: Active Protocol: Document 09/19/19 09:51 [facility] (Rec: 09/19/19: [facility] [id number]) Medical Review Prior Functional Status Medical History Reviewed Yes Diet/Fluid Consistency Regular Communication WNL Mobility and Gait Independent without assistive device. Pt limits her ambulation due to shortness of breath. Activities of Daily Living and IADL's Independent Prior Functional Level (Other details) Pt drives, manages her own finances and medications Social History Household Members family Living Arrangements House Number of Floors (Floors) One Floor Number of Stairs To Enter/Railing? Level entrance Home Environment Standard Height Toilet,Tub/ Shower Home Equipment Raised Toilet Seat Without Armrests,Hand Held Shower,Grab Bars In Shower Additional Social History Comment Pt lives in a basement apartment with her son, Darryl, and DIL, Brook, living upstairs. She has a large bathtub. She tends to sleep in a recliner. There is an additional bedroom in her apartment where someone could stay if she discharged to home . She states her granddaughter is trained as an EMT and could stay with her. Apparently, her granddaughter' s is a PT student who could also stay with her. M2 OT-IP Current Condition Start: 09/19/19 11:00 Freq: Status: Active Protocol: Document 09/19/19 09:51 [facility] (Rec: 09/19/19 11: [facility] [id number]) Occupational Therapy Current Condition Current Condition Evaluation Date 09/19/19 Treatment Diagnosis L femoral neck fracture, s/p L hemiart, prox. phalanx fx of left thumb Diagnosis Onset Date 09/16/19 Post Operative Precautions Posterior Hip Precautions No Hip Flexion > 90 degrees,No Hip Internal Rotation,No Hip Adduction Weight Bearing Status Weight Bearing Status Non-Weight Bearing Allowed Weight Bearing Amount (enter % NWB to left hand, WBAT for LLE or #) (%) M3 OT- IP Subjective and Pain Start: 09/19/19 11:00 Freq: Status: Active Protocol: Document 09/19/19 09:51 [facility] (Rec: 09/19/19 11: [facility] [id number]) OT- Subjective Occupational Therapy Visit Type Type Initial Evaluation Visit Start Time 09:51 Visit Stop Time 10:25 Total Visit Minutes 34 Occupational Therapy Visit Comments Patient Comments Pt wanting to sponge off. Patient/Caregiver Goals Pt realizes at this time would be best to go to skilled rehab prior to going home. OT Pain Assessment Pain When Pain Assessed During Mobility Pain Present Pain Present Pain Reported Location left knee Intensity 3 M4 OT- IP ADL's Start: 09/19/19 11:00 Freq: Status: Active Protocol: Document 09/19/19 09:51 [facility] (Rec: 09/19/19 11: [facility] [id number]) OT NCG-Mdiz-Osusqnd General Evaluation Self-Feeding Ability Standby Assistance Areas Needing Assistance Opening Containers Comments OT Self-Feeding Comments Set-up assist for tray, due to decreased use of left hand as hand in thumb spica cast and NWB status. OT ADL-Grooming Comments OT Grooming Comments Not performed. 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 Pt initially needing LIZZY for sock aid to pull up the socks as not able to use left hand to assist at this time. OT ADL-Toileting General Evaluation Toileting Ability Total Assistance Areas Needing Assistance Empty Catheter or Colostomy Comments OT Toileting Comments [place] in. Educated at this time in order to follow hip precautions, best to stand to wipe. OT ADL-Bathing Bathing Type Bathing Type Sponge Bath General Evaluation Bathing Ability Moderate Assistance Areas Needing Assistance Wash/Dry Back,Wash/Dry Lower Extremities Comments OT Bathing Comments Pt assist to wash her legs and back. Pt states has a large tub/shower at home and son now looking into converting it into a walk in shower. M5 OT- IP IADL's Start: 09/19/19 11:00 Freq: Status: Active Protocol: Document 09/19/19 09:51 [facility] (Rec: 09/19/19: [facility] [id number]) OT-Instrumental Activities of Daily Living Home Safety Awareness Home Safety Comments Due to pt's posterior hip precautions and NWB to LUE, pt will need to have assist for all Adl and IADl at this time. M6 OT- IP Functional Cognition Start: 09/19/19 11:00 Freq: Status: Active Protocol: Document 09/19/19 09:51 [facility] (Rec: 09/19/19: [facility] [id number]) Cognitive Factors Limiting Selfcare Function Cognitive Ability Level of Alertness Alert Patient Orientation Name,Age,Birthday,Month,Date, Year,Day of Week,Place, Situation Attention Span Ability Capable of Focused Attention, Capable of Sustained Attention Ability to Follow Commands Able to Follow One Step Commands Memory Description Short Term Impaired Safety Awareness Decreased Recall of Precautions,Decreased Ability to Apply Precautions, Underestimates Need for Assistance Problem Solving Ability Needs Assist to Identify Solutions Cognitive Comments Cognitive Assessment Comments Pt needing vc for hip precautions and vc to be sure not to put weight on her left hand while trying to get up. VC for safety awareness to slide her LLE forwards before sitting and standing up. OT- Vision and Hearing OT- Hearing Assessment OT- Hearing Assessment WFL M7 OT- IP Mobility and Balance Start: 09/19/19 11:00 Freq: Status: Active Protocol: Document 09/19/19:51 [facility] (Rec: 09/19/19: [facility] [id number]) OT-Transfer Assessment Sit to and From Stand Sit to and from Stand Moderate Assistance Devices Transfer Assistive Devices Gait Belt,Platform Walker Comments Mobility Comments Pt needing MOD A X1 to stand at this time. OT- Balance Assessment Sitting Balance and Reactions Static Sitting Balance Ability Normal Dynamic Sitting Balance Ability Good Standing Balance and Reactions Static Standing Balance Ability Fair M8 OT- IP Objective Assessments Start: 09/19/19 11:00 Freq: Status: Active Protocol: Document 09/19/19:51 [facility] (Rec: 09/19/19: [facility] [id number]) OT Gross Range of Motion Upper Extremity Range of Motion Assessment Left Impaired OT Strength Comments Strength Comments RUE 4+/5, LUE NT due to pt in thumb spica cast. OT- Coordination Assessment Comments Coordination Comments Arthitic changes in hands. M9 OT- IP Assessment and Plan Start: 09/19/19 11:00 Freq: Status: Active Protocol: Document 09/19/19 09:51 [facility] (Rec: 09/19/19 11:20 [facility] [id number]) OT Summary Assessment and Plan Potential Rehabilitation Potential Good Analytic Complexity at Evaluation Low Summary OT Impairments Pain,Balance,Functional Cognition,Functional Mobility, Self-Feeding,Grooming,Dressing ,Toileting,Bathing,Toilet Transfers,Shower Transfers, Activity Tolerance Progress Towards Goals Slow Progress due to Pain,Slow Progress due to Medical Issues,Slow Progress due to Activity Tolerance Assessment Summary Pt low complexity and main barriers are pain, NWB to LUE, and posterior hip precautions for LLE, decreased activity tolerance and now needing assist for all Adl and functional mobility needs. Prior pt was completely independent with her needs and will benefit from skilled rehab prior to going home. OT to continues to work on safety awareness for hip precautions during ADl's and functional mobility and practice of LB adaptive equipment and suggestions for other equipment needs. Pt is very cooperative, pleasant and motivated to get better. Goals Self-Feeding Goal Independent Grooming Goal Independent Dressing Goal Independent Toileting Goal Independent Bathing Goal Independent Toilet Transfer Goal Independent Shower Transfer Goal Independent Patient/Caregiver Education Goal Demonstrate Post-Op Precautions Days to Meet Goals 15 Frequency of Treatment Frequency Of Treatment Once a Day Treatment Plan OT Treatment Plan ADL Training,Functional Cognition Training,Functional Mobility,Patient/Family Education,Discharge Planning Other Treatment Recommendations and Next Stand at sink for grooming Treatment Focus needs with platform walker. Discharge Recommendations OT Discharge Recommendations SNF Rehab Home Equipment Needs defer to SNF Transportation Needs at Discharge Wheelchair/Cabulance
[2019-09-19] MEDS: polyethylene glycoL 3350 17 GM POWD.PACK PO (10:29)
[2019-09-19] MEDS: DOCUSATE 100 MG CAPSULE 200 MG PO (10:29)
--- NOTE | 2019-09-19 10:49 | PT.IPTN ---
Current Diagnoses Unspecified intracapsular fracture of left femur, initial encounter for closed fracture (09/16/19) Surgery Performed Operation Date: 09/17/19 08:00 Actual Procedures p Hip Cemented Hemiarthroplasty, placement of cast left thumb(Left) - Tyler Mckeon MD Physical Therapy Treatment Note M2 PT-IP Current Condition Start: 09/18/19 08:28 Freq: NEEDED Status: Active Protocol: Document 09/18/19 11:26 AW (Rec: 09/18/19 11:48 AW [id number]) Physical Therapy Current Condition Current Condition Evaluation Date 09/18/19 Treatment Diagnosis L femur fx s/p hemiarthro; L 1st prox phalanx fx; difficulty in walking Onset Date 09/16/19 Precautions Posterior Hip Precautions No Hip Flexion > 90 degrees,No Hip Internal Rotation,No Hip Adduction Brace thumb spica splint on left wrist Other Precautions per Dr. Mckeon, NWB left wrist Weight Bearing Status Weight Bearing Status Weight Bear as Tolerated M3 PT-IP Subjective Start: 09/18/19 08:28 Freq: NEEDED Status: Active Protocol: Document 09/19/19 10:30 AW (Rec: 09/19/19 10:49 AW [id number]) Subjective Physical Therapy Visit Type Type Treatment Note Visit Start Time 09:26 Visit Stop Time 09:51 Total Visit Minutes 25 Number of PAPER CONE GRADER Visits 0 Physical Therapy Visit Comments Patient Comments Pt feeling much more inclined to go to SNF rehab based on how much work it has been to move Therapy Pain Assessment Pain When Pain Assessed During Mobility Pain Present Pain Present Pain Reported Location left knee Intensity 3 Scale Used Numeric (1 - 10) Pain Management Techniques Apply Cold,Timing of Activity with Medications M4 PT-IP Mobility and Gait Start: 09/18/19 08:28 Freq: NEEDED Status: Active Protocol: Document 09/19/19 10:30 AW (Rec: 09/19/19 10:49 AW [id number]) PT-Bed Mobility Assessment Supine to Sit Supine to Sit Moderate Assistance,1 Person Assistance,Head of Bed Elevated Scooting Scooting to Edge of Bed Minimal Assistance PT-Transfer Assessment Sit to and From Stand Sit to and from Stand Moderate Assistance,1 Person Assistance,Use of Upper Extremities Equipment Transfer Assistive Device Gait Belt,Platform Walker Transfers Transfer Destination Chair Transfer Technique pt ambulated with platform walker Transfer Ability Level of Assist Minimal Assistance,1 Person Assistance Comments Mobility Comments Pt sitting up in bed upon PT arrival. She worked with PT on supine exercises and then transferred to sitting EOB on the left side mod A x 1. Exiting the bed on her left side, she was able to use her left elbow on the raised HOB to scoot instead of her hand on the bed. Sit to stand required mod A x 1 and cues for sequencing, cues to avoid left wrist weightbearing. After gait training in the halls, pt returned to the room and transferred to the chair with min A and cues for sequencing for precautions. Pt was positioned in the chair and left with OT. Gait Assessment Gait Gait Assistance Required: Contact Guard Assist,Minimum Assistance,1 Person Assist Distance (Feet) 120 Able to Maintain Weight Bearing Status Yes During Gait Assistive Devices Assistive Device Gait Belt,Platform Walker Gait Deviations General Gait Pattern Antalgic,Decreased Stride Length,Decreased Feet Clearance,Flexed Trunk,Step-to Gait Factors Limiting Gait Function Factors Limiting Gait Function Decreased Activity Tolerance, Decreased Strength,Pain,Poor Safety Awareness Comments Gait Comments Pt improving in independent management of platform walker but continues to require occasional cues. She was able to correct her flexed posture in response to cues but quickly reverted back to flexion. PT-Balance Assessment Sitting Balance and Reactions Static Sitting Balance Ability Normal Dynamic Sitting Balance Ability Normal Standing Balance and Reactions Static Standing Balance Ability Good Dynamic Standing Balance Ability Good Device Used FWW M5 PT-IP Objective Assessments Start: 09/18/19 08:28 Freq: NEEDED Status: Active Protocol: Document 09/18/19 11:26 AW (Rec: 09/18/19 11:48 AW [id number]) Orientation Orientation/Cognition Level of Alertness Alert Orientation Name,Day of Week,Place, Situation Language Function Ability No Deficits Noted Safety Awareness Understands Safety Issues Memory Description No Deficits Noted Gross Range of Motion Upper Extremity ROM Assessment Left Impaired Impairments left wrist in spica splint Lower Extremity ROM Assessment Left Impaired Strength Lower Extremity Strength Assessment Left Impaired Comments Strength Comments RLE grossly 4/5 Coordination Assessment Gross Coordination Gross Coordination WNL Sensation Assessment Sensation Gross Sensation WNL Muscle Tone Muscle Tone WNL Yes M6 PT-IP Treatment Start: 09/18/19 08:28 Freq: NEEDED Status: Active Protocol: Document 09/19/19 10:30 AW (Rec: 09/19/19 10:49 AW [id number]) Physical Therapy Treatment Exercises Exercises Ankle Pumps,Gluteal Sets,Quad Sets,Heel Slides,Supine Hip Abduction Education Education Provided Precautions,Weight Bearing Status,Safety M7 PT-IP Assessment and Plan Start: 09/18/19 08:28 Freq: NEEDED Status: Active Protocol: Document 09/19/19 10:30 AW (Rec: 09/19/19 10:49 AW [id number]) PT Summary Assessment and Plan Potential Rehabilitation Potential Good Status of Condition at Evaluation Stable Summary Impairments Pain,ROM,Strength,Balance,Bed Mobility,Transfers,Gait, Activity Tolerance Progress Towards Goals Progressing Toward Goals Assessment Summary Francisca improved her gait distance today and had good pain management. She continues to struggle with bed mobility and all transitions, requiring min to mod assist x 1. She remains an excellent candidate for SNF rehab which she now feels would be the best option for her. Goals Bed Mobility Goal Contact Guard Assistance Transfer Goal Contact Guard Assistance,Front Wheeled Walker Gait Goal Contact Guard Assistance,Front Wheel Walker Gait Distance 100 Days to Meet Goals 10 Frequency of Treatment Frequency Of Treatment Twice a Day Treatment Plan Physical Therapy Treatment Plan Bed Mobility Training,Transfer Training,Gait Training, Therapeutic Exercise,Balance Retraining,Post Op Education, Discharge Planning,Hot or Cold Pack Other Recommendations and Next Treatment progress gait training for Focus improved step-through patterning and improved hip extension Recommendations To Nursing Amount of Assist Needed 1 Person Assist Discharge Recommendations PT Discharge Recommendations Home with Assistance,Home Health,SNF Rehab Other Discharge Recommendations SNF vs home with assist and HH depending on progress Equipment Needed for Home Before FWW, tub transfer bench, Discharge bedside commode if going home Transportation Needs at Discharge Private Vehicle,Wheelchair/ Cabulance
--- NOTE | 2019-09-19 13:20 | PT-IP ANOTE ---
Pt refused therapy today, stating that she was feeling tired and waiting on pn meds. Offered treatment later in afternoon after pain meds, but pt refused.
[2019-09-19] MEDS: OXYCODONE/ACETAMINOPHEN 5/325 TABLET 2 TAB PO (13:30)
--- NOTE | 2019-09-19 13:37 | CM.DPC ---
DCP SNF Planning: Per MD, pt seems to be medically stabilizing and Ortho rounded this morning and pt has cast with non weight baring status on her wrist/thumb and hip as well. Per PT/OT, pt does not seem to be safe for d/c straight home due to her need for 24/7 and precautions on her hand and also hip and lacking the proper equipment to ambulate and cannot safely do bed/chair mobility independently. Pt requesting SNF at d/c. DORCAS met bedside with pt and explained role and pt confirms that originally she was hopeful for home with family assist and HH but now realizes that she is not safe for d/c home and does not have 24/7 care at d/ or equipment needed. Pt requesting SNF and ONLY at [facility]. DORCAS spoke to October at [facility] and confirmed that they have accepted pt and were anticipating tomorrow and confirmed that pt outside of her 72 hour window for last COVID test and will need another prior to admit. DORCAS updated MD who will place COVID order now with anticipation of discharge to [facility] in the morning between [id number] via facility van. DORCAS updated pt bedside and she is very appreciative and agreeable with d/c plan for tomorrow morning to [facility] and will call and update her adult children and family. DORCAS updated RN. SEAN previously done in anticipation of SNF. Plan: DORCAS to follow for likely d/c to [facility] tomorrow 09/20/19 around 1030 prior to safe return home. MEHRDAD Peña
--- NOTE | 2019-09-19 15:05 | OT.IP.EVAL ---
Current Diagnoses Unspecified intracapsular fracture of left femur, initial encounter for closed fracture (09/16/19) Surgery Performed Operation Date: 09/17/19 08:00 Actual Procedures p Hip Cemented Hemiarthroplasty, placement of cast left thumb(Left) - Tyler Mckeon MD Past Medical History (Last Reviewed 09/16/19 @ 14:03 by Tyler Mckeon MD) COPD (chronic obstructive pulmonary disease) (Acute) Leukemia (Acute) Surgical History (Last Reviewed 09/16/19 @ 14:03 by Tyler Mckeon MD) History of left knee replacement (Acute) Occupational Therapy Inpatient Evaluation/Re-Eval M1 PT/OT-IP Prior Functional Status Start: 09/18/19 08:28 Freq: NEEDED Status: Active Protocol: Document 09/18/19 11:26 AW (Rec: 09/18/19 11:48 AW [id number]) Medical Review Prior Functional Status Medical History Reviewed Yes Diet/Fluid Consistency Regular Communication WNL Mobility and Gait Independent without assistive device. Pt limits her ambulation due to shortness of breath. Activities of Daily Living and IADL's Independent Prior Functional Level (Other details) Pt drives, manages her own finances and medications Social History Household Members family Living Arrangements House Number of Floors (Floors) One Floor Number of Stairs To Enter/Railing? Level entrance Home Environment Standard Height Toilet,Tub/ Shower Home Equipment Raised Toilet Seat Without Armrests,Hand Held Shower,Grab Bars In Shower Additional Social History Comment Pt lives in a basement apartment with her son, Darryl, and DIL, Brook, living upstairs. She has a large bathtub. She tends to sleep in a recliner. There is an additional bedroom in her apartment where someone could stay if she discharged to home . She states her granddaughter is trained as an EMT and could stay with her. Apparently, her granddaughter' s is a PT student who could also stay with her. M1 PT/OT-IP Prior Functional Status Start: 09/19/19 11:00 Freq: NEEDED Status: Active Protocol: Document 09/19/19 09:51 CCC (Rec: 09/19/19 11:20 CCC [id number]) Medical Review Prior Functional Status Medical History Reviewed Yes Diet/Fluid Consistency Regular Communication WNL Mobility and Gait Independent without assistive device. Pt limits her ambulation due to shortness of breath. Activities of Daily Living and IADL's Independent Prior Functional Level (Other details) Pt drives, manages her own finances and medications Social History Household Members family Living Arrangements House Number of Floors (Floors) One Floor Number of Stairs To Enter/Railing? Level entrance Home Environment Standard Height Toilet,Tub/ Shower Home Equipment Raised Toilet Seat Without Armrests,Hand Held Shower,Grab Bars In Shower Additional Social History Comment Pt lives in a basement apartment with her son, Darryl, and DIL, Brook, living upstairs. She has a large bathtub. She tends to sleep in a recliner. There is an additional bedroom in her apartment where someone could stay if she discharged to home . She states her granddaughter is trained as an EMT and could stay with her. Apparently, her granddaughter' s is a PT student who could also stay with her. M2 OT-IP Current Condition Start: 09/19/19 11:00 Freq: Status: Active Protocol: Document 09/19/19 09:51 [facility] (Rec: 09/19/19 11: [facility] [id number]) Occupational Therapy Current Condition Current Condition Evaluation Date 09/19/19 Treatment Diagnosis L femoral neck fractur, s/p L hemiart, proxi phalanx fx of left thumb Diagnosis Onset Date 09/16/19 Post Operative Precautions Posterior Hip Precautions No Hip Flexion > 90 degrees,No Hip Internal Rotation,No Hip Adduction Weight Bearing Status Weight Bearing Status Non-Weight Bearing Allowed Weight Bearing Amount (enter % NWB to left hand, WBAT for LLE or #) (%) M3 OT- IP Subjective and Pain Start: 09/19/19 11:00 Freq: Status: Active Protocol: Document 09/19/19 09:51 [facility] (Rec: 09/19/19 11: [facility] [id number]) OT- Subjective Occupational Therapy Visit Type Type Initial Evaluation Visit Start Time 09:51 Visit Stop Time 14:52 Total Visit Minutes 51 saw pt in morning and assisted to help get back to bed in PM. Occupational Therapy Visit Comments Patient Comments Pt wanting to sponge off. Patient/Caregiver Goals Pt realizes at this time would be best to go to skilled rehab prior to going home. OT Pain Assessment Pain When Pain Assessed During Mobility Pain Present Pain Present Pain Reported Location left knee Intensity 3 M4 OT- IP ADL's Start: 09/19/19 11:00 Freq: Status: Active Protocol: Document 09/19/19 09:51 [facility] (Rec: 09/19/19: [facility] [id number]) OT BVV-[id number]-Uhpsuqy General Evaluation Self-Feeding Ability Standby Assistance Areas Needing Assistance Opening Containers Comments OT Self-Feeding Comments Set-up assist for tray, due to decreased use of left hand as hand i thumb spica cast and NWB status. OT ADL-Grooming Comments OT Grooming Comments Not performed. OT ADL-Dressing General Eval Upper Body Dressing Ability Standby Assistance Lower Body Dressing Ability Maximum Assistance Comments OT Dressing Comments Pt MAXA for LB dresing and started training of LB dressing equipment for sock aid and offset printer. Pt initially needing LIZZY for sock aid to pull up the socks as not able to use left hand to asisst at this time. OT ADL-Toileting General Evaluation Toileting Ability Total Assistance Areas Needing Assistance Empty Catheter or Colostomy Comments OT Toileting Comments Powell in. Educated at this time in order to follow hip precautions, best to stand to wipe. OT ADL-Bathing Bathing Type Bathing Type Sponge Bath General Evaluation Bathing Ability Moderate Assistance Areas Needing Assistance Wash/Dry Back,Wash/Dry Lower Extremities Comments OT Bathing Comments Pt assist to wash her legs and back. Pt states has a large tub/shower at home and son now looking into converting it into a walk in shower. M5 OT- IP IADL's Start: 09/19/19 11:00 Freq: Status: Active Protocol: Document 09/19/19 09:51 [facility] (Rec: 09/19/19: [facility] [id number]) OT-Instrumental Activities of Daily Living Home Safety Awareness Home Safety Comments Due to pt's posterior hip precautions and NWB to LUE, pt will need to have assist for all Adl and IADl at this time. M6 OT- IP Functional Cognition Start: 09/19/19 11:00 Freq: Status: Active Protocol: Document 09/19/19 09:51 [facility] (Rec: 09/19/19: [facility] [id number]) Cognitive Factors Limiting Selfcare Function Cognitive Ability Level of Alertness Alert Patient Orientation Name,Age,Birthday,Month,Date, Year,Day of Week,Place, Situation Attention Span Ability Capable of Focused Attention, Capable of Sustained Attention Ability to Follow Commands Able to Follow One Step Commands Memory Description Short Term Impaired Safety Awareness Decreased Recall of Precautions,Decreased Ability to Apply Precautions, Underestimates Need for Assistance Problem Solving Ability Needs Assist to Identify Solutions Cognitive Comments Cognitive Assessment Comments Pt needing vc for hip precautions and vc to be sure not to put weight on her left hand while trying to get up. VC for safety awareness to sldie her LLE forwards before sitting and standing up. In PM MAX A to stand to platform walker and vc not to push with left hand. LIZZY to transfer to bed from recliner and MODA to help get her legs back into bed. OT- Vision and Hearing OT- Hearing Assessment OT- Hearing Assessment WFL M7 OT- IP Mobility and Balance Start: 09/19/19 11:00 Freq: Status: Active Protocol: Document 09/19/19 09:51 [facility] (Rec: 09/19/19 11: [facility] [id number]) OT-Transfer Assessment Sit to and From Stand Sit to and from Stand Moderate Assistance Devices Transfer Assistive Devices Gait Belt,Platform Walker Comments Mobility Comments Pt needing MOD A X1 to stand at this time. OT- Balance Assessment Sitting Balance and Reactions Static Sitting Balance Ability Normal Dynamic Sitting Balance Ability Good Standing Balance and Reactions Static Standing Balance Ability Fair M8 OT- IP Objective Assessments Start: 09/19/19 11:00 Freq: Status: Active Protocol: Document 09/19/19 09:51 [facility] (Rec: 09/19/19 11: [facility] [id number]) OT Gross Range of Motion Upper Extremity Range of Motion Assessment Left Impaired OT Strength Comments Strength Comments RUE 4+/5, LUE NT due to pt in thumb spica cast. OT- Coordination Assessment Comments Coordination Comments Arthitic changes in hands. M9 OT- IP Assessment and Plan Start: 09/19/19 11:00 Freq: Status: Active Protocol: Document 09/19/19 09:51 [facility] (Rec: 09/19/19 11: [facility] [id number]) OT Summary Assessment and Plan Potential Rehabilitation Potential Good Analytic Complexity at Evaluation Low Summary OT Impairments Pain,Balance,Functional Cognition,Functional Mobility, Self-Feeding,Grooming,Dressing ,Toileting,Bathing,Toilet Transfers,Shower Transfers, Activity Tolerance Progress Towards Goals Slow Progress due to Pain,Slow Progress due to Medical Issues,Slow Progress due to Activity Tolerance Assessment Summary Pt low complexity and main barriers are pain, NWB to LUE, and posterior hip precautions for LLE, decreased activity tolerance and now needing assist for all Adl and functional mobility needs. Prior pt was completely independent with her needs and will benefit from skilled rehabprior to going home. OT to continues to work on safety awareness for hip precautions during ADl's and fucntional mobility and practice of LB adaptive equipment and suggestions for other equipment needs. Pt is very cooperative, pleasant and motiviated to get better. Goals Self-Feeding Goal Independent Grooming Goal Independent Dressing Goal Independent Toileting Goal Independent Bathing Goal Independent Toilet Transfer Goal Independent Shower Transfer Goal Independent Patient/Caregiver Education Goal Demonstrate Post-Op Precautions Days to Meet Goals 15 Frequency of Treatment Frequency Of Treatment Once a Day Treatment Plan OT Treatment Plan ADL Training,Functional Cognition Training,Functional Mobility,Patient/Family Education,Discharge Planning Other Treatment Recommendations and Next Stand at sink for grooming Treatment Focus needs with platform walker. Discharge Recommendations OT Discharge Recommendations SNF Rehab Home Equipment Needs defer to SNF Transportation Needs at Discharge Wheelchair/Cabulance
[2019-09-19 15:33] LABS: COVID19 -Nasal RAPID Negative (Negative)
--- NOTE | 2019-09-19 17:27 | PC.NURSE ---
Addendum entered by Vanda Hooper R.N. 09/19/19 21:59: Satisfactory post op course. Continues to deny discomfort all evening. HL intact/patent. Tele NSR per ICU staff. Pt had BM this evening. Planning D/C to [facility] tomorrow. Call light w/in reach, bed alarm on for pt safety. Continue w/plan of care. Original Note: Pt watching TV. Denies discomfort when asked. Left hand/arm in cast, CSM ++ Aquacell dsg to left hip w/large shadow drainage. HL right wrist intact/patent. Tele in place Call light w/in reach, bed alarm on for pt safety.
--- NOTE | 2019-09-19 18:02 | PM.PN.1 ---
Subjective Subjective Date Patient Seen: 09/19/19 Time Patient Seen: 11:00 Interval history: Francisca Rdz is a 70-year-old female with past medical history of CLL (never had treament). PAD, COPD, HTN, probable prior CVA (problems with speech, but refused admission at the time in [place]), hypothyroidism, active smoker who presented after a fall in her driveway. She was admitted with a left femur fracture as well as a left thumb proximal phalanx fracture. She underwent operative treatment yesterday. Postoperatively she had some desaturations which required oxygen and she is down to 1L NC, she often comes up when alert. She complains of slight pain upon movement, but states that her pain is quite controlled. She denies any nausea, vomiting, fever, chills, abdominal pain. Patient did ultimately agree to [facility]ci discharge after working with physical therapy today. She was possibly going to go to [facility] today, repeat COVID-19 testing was negative this afternoon, however now it appears likely the patient will transfer tomorrow. Powell catheter was discontinued this afternoon. Exam Vital Signs (past 8 hours): - 09/19/19 12:00 09/19/19 16:14 09/19/19 16:47 Temperature 98.2 F 99.1 F Pulse Rate 101 H 91 H Respiratory Rate 16 18 Blood Pressure 129/57 L 127/70 Pulse Oximetry 93 95 97 Oxygen Delivery Method Room Air Oxygen Flow Rate 1 Narrative Exam Narrative: GENERAL APPEARANCE: Elderly female, no acute distress, well developed well nourished. SKIN: Inspection of the skin reveals no rashes, ulcerations or petechiae. HEENT: Normocephalic atraumatic, extraocular muscles are intact, oropharynx is clear and mucous membranes are dry, neck is supple without adenopathy NECK: Supple and symmetric. There was no thyroid enlargement, and no tenderness, or masses were felt. CHEST: Normal AP diameter and normal contour without any kyphoscoliosis. LUNGS: Auscultation of the lungs revealed no wheezes, rhonchi, or rales. CARDIOVASCULAR: There was a regular rate and rhythm without any murmurs, gallops, rubs. Peripheral pulses were 2+ and symmetric. ABDOMEN: Soft and nontender with normal bowel sounds. No ascites was noted. MUSCULOSKELETAL: L hip dressing c/d/i. EXTREMITIES: No cyanosis, clubbing or edema. NEUROLOGIC: Alert and oriented x 3. Normal affect. Gait was not assessed. Strength is +5/5 in the Upper Extremities and Lower Extremities Bilaterally. Sensation to touch was normal. Objective Labs Result Diagrams: 09/19/19 05:45 09/19/19 05:45 Labs: Laboratory Results - last 24 hr 09/19/19 09/19/19 09/19/19 05:45 05:45 13:55 WBC 8.4 RBC 2.88 L Hgb 10.4 L Hct 30.2 L MCV 104.9 H MCH 36.2 H MCHC 34.5 RDW 14.1 Plt Count 129 L Neut % (Auto) 45.7 L Lymph % (Auto) 48.3 H [place] % (Auto) 4.1 Eos % (Auto) 1.4 L Baso % (Auto) 0.5 Neut # (Auto) 3800 Lymph # (Auto) 4100 [place] # (Auto) 300 Eos # (Auto) 100 Baso # (Auto) 0 Sodium 135 L Potassium 4.4 Chloride 102 Carbon Dioxide 32 BUN 14 Creatinine 0.48 L Estimated GFR > 60.0 BUN/Creatinine Ratio 29.2 H Glucose 92 Calcium 8.8 Magnesium 1.7 COVID-19 PCR Negative Assessment & Plan Assessment & Plan narrative: Francisca Rdz is a 70-year-old female with past medical history of CLL (never had treament). PAD, COPD, HTN, probable prior CVA (problems with speech, but refused admission at the time in [place]), hypothyroidism, active smoker who presented after a fall yesterday in her driveway. She is admitted to the medicine service with a left femur fracture and underwent operative intervention today. She also has a left thumb proximal phalanx fracture for which she had a cast placed in the OR. 1. Left femur fracture, acute, present on admission -management per orthopedic surgery, appreciate assistance with management -now status post left hip arthroplasty on 09/17/2019. -continue pain management with oral medications as tolerated -zofran for nausea -continue PT/OT -plan for discharge to SNF likely tomorrow 2. Left thumb proximal phalanx fracture, acute, present on admission -patient was placed in a cast per Orthopedic surgery in the operating room. 3. COPD, chronic, stable - duonebs BID to replace home dulera - RT eval and treat, prn albuterol - requiring small amount of supplemental oxygen likely secondary to atelectasis, continue to wean, goal O2 88%, most recently she is 97% on 1 L. 4. Hypertension, chronic, stable - will hold HCTZ as Na 136 on admission. - BP controlled with pain medications, restart with alternative agent when needed, preferrably lisinopril after OR if she requires an antihypertensive, which she currently does not. 5. PAD, chronic, stable - asa 81 mg 6. CLL, stable -continue to follow CBC 7. Hypokalemia - improved with repletion. 8. Probable history of CVA Code: Full, states she does not have a medical power of bankruptcy attorney for a surrogate decision maker. She does have 3 sons and states that they often disagree. She does have an advanced directive which we will work on obtaining. Dispo: Admitted under inpatient status as her stay is likely to exceed 2 midnights, repeat cover testing negative, plan for discharge to [facility] tomorrow. DVT: Lovenox daily Diet: Heart healthy diet
[2019-09-20] VITALS: BP 133/64; PULSE 86; RESP 16; TEMP 36.5; O2SAT 96
[2019-09-20 04:00] VITALS: BP 141/70; PULSE 87; RESP 18; TEMP 36.5; O2SAT 94
[2019-09-20 07:52] VITALS: O2SAT 96
--- NOTE | 2019-09-20 08:06 | P.DS_ITS ---
History of Present Illness History of Present Illness Date Patient Seen: 09/20/19 Time Patient Seen: 08:06 Chief complaint: Fall - Hip pain & thumb dislocation Narrative: Francisca dRz is a 70-year-old female with past medical history of CLL (never had treament). PAD, COPD, HTN, probable prior CVA (problems with speech, but refused admission at the time in [place]), hypothyroidism, active smoker who presented after a fall yesterday in her driveway. She states she felt mildly dizzy prior to her fall, but fell backwards on to her left side. She was wearing headphones and did notice a scratch on them but states that they took most of the impacted she does not remember hitting her head on the ground. She did not lose consciousness. She denies any recent fevers, chills, worsening shortness of breath, cough, chest pain, palpitations, abdominal pain, dysuria, or urinary frequency. She complained of left hip and knee pain after the fall, she called her son initially, who she lives with. She also complained left hand pain and bruising. Patient lives with her son. She lives independently in the basement with her son up above. She does all of her daily activities. In the ED, patient was hypertensive, but other vital signs unremarkable. Labs were notable for a potassium of 3.2, but otherwise unremarkable chemistries except for a mildly elevated T bili at 1.6. White blood cell count was 12, hemoglobin 14, and platelet count of 162. Patient has known CLL and believes that her baseline white blood cell count is around 20, but she has not been seen by her oncologist in a while. She does follow annually for this. Chest x-ray showed hyperinflated lungs consistent with known COPD but no acute infiltrates. Femur x-ray showed a left femoral neck fracture and hand x-ray showed a left proximal phalanx fracture of her thumb. Patient had a brace placed by the emergency room and will be further evaluated by orthopedic surgery. She is admitted to the medicine service with a left for more neck fracture with plans to undergo operative interventions in the next 24 hours. She is currently pending a repeat EKG, but based on her current symptoms she appears medically optimized for surgery. Discharge Providers Provider Date of admission: 09/16/19 10:43 Discharge Date: 09/20/19 Primary care physician: Sommer Hicks MD Consults: 09/17/19 12:26 Consult to Physical Therapy Evaluate & Treat Comment: weight bearing as tolerating Physician Instructions: Evaluate and Treat 09/17/19 15:19 Consult to Occupational Therapy Evaluate & Treat Comment: Physician Instructions: Evaluate and treat Discharge provider: Mele Woodall DO Summary Hospital Course Discharge Diagnosis: Please see hospital course by problem list below: Hospital Course: Francisca Rdz is a 70-year-old female with past medical his tory of CLL (never had treament). PAD, COPD, HTN, probable prior CVA (problems with speech, but refused admission at the time in [place]), hypothyroidism, active smoker who presented after a fall in her driveway. She was admitted to the medicine service with a left femur fracture and underwent operative intervention. She had an uncomplicated post operative course and did well with PT however she requires further therapy before being able to return home safely. She was transferred to SNF on 09/20/2019. 1. Left femur fracture, acute, present on admission -now status post left hip arthroplasty on 09/17/2019. -continue pain management with oral medications as tolerated -fracture is pathologic secondary to known osteoporosis. 2. Left thumb proximal phalanx fracture, acute, present on admission -patient was placed in a cast per Orthopedic surgery in the operating room. - outpatient follow up with orthopedic surgery. 3. COPD, chronic, stable - continue home dulera and as needed albuterol. Patient was mildly hypoxic when sleeping during the course of her stay which improved. On day of discharge she was 96% on room air. 4. Hypertension, chronic, stable - okay to resume home medication upon discharge. 5. PAD, chronic, stable - asa 81 mg 6. CLL, stable -CBC showed a stable WBC count during the course of admission. 7. Hypokalemia - improved with repletion. 8. Probable history of CVA 9. Osteoporosis, present on admission - continue home fosamax weekly Patient transferred to SNF. Exam Vital Signs (past 8 hours): - 09/20/19 04:00 09/20/19 07:52 Temperature 97.7 F Pulse Rate 87 Respiratory Rate 18 Blood Pressure 141/70 H Pulse Oximetry 94 96 Oxygen Delivery Method Room Air Oxygen Flow Rate 0 Narrative Exam Narrative: GENERAL APPEARANCE: Elderly female, no acute distress, well developed well nourished. SKIN: Inspection of the skin reveals no rashes, ulcerations or petechiae. HEENT: Normocephalic atraumatic, extraocular muscles are intact, oropharynx is clear and mucous membranes are dry, neck is supple without adenopathy NECK: Supple and symmetric. There was no thyroid enlargement, and no tenderness, or masses were felt. CHEST: Normal AP diameter and normal contour without any kyphoscoliosis. LUNGS: Auscultation of the lungs revealed no wheezes, rhonchi, or rales. CARDIOVASCULAR: There was a regular rate and rhythm without any murmurs, gallops, rubs. Peripheral pulses were 2+ and symmetric. ABDOMEN: Soft and nontender with normal bowel sounds. No ascites was noted. MUSCULOSKELETAL: L hip dressing c/d/i. EXTREMITIES: No cyanosis, clubbing or edema. NEUROLOGIC: Alert and oriented x 3. Normal affect. Gait was not assessed. Strength is +5/5 in the Upper Extremities and Lower Extremities Bilaterally. Sensation to touch was normal Objective Labs Result Diagrams: 09/19/19 05:45 09/19/19 05:45 Labs: Laboratory Results - last 24 hr 09/19/19 13:55 COVID-19 PCR Negative Discharge Plan Discharge Plan Patient Disposition: SNF Transfer to: [facility] Discharge comment: Patient was admitted to the hospital for a L hip and L thumb fracture. Being transferred to [facility] for continued rehab post operatively. Discharge orders & Medications Prescriptions: New oxycodone-acetaminophen 5-325 mg Tablet 1 tab PO Q4HR PRN (Reason: Pain, Moderate (4-6)) 7 Days Qty: 20 RF: 0 docusate sodium [DOK] 100 mg Capsule 200 mg PO BID 30 Days Qty: 120 RF: 0 polyethylene glycol 3350 17 gram Powder In Packet 17 g PO DAILY 30 Days RF: 0 Continued alendronate 70 mg tablet 70 mg PO WEEKLY RF: 0 Dulera 100-5 mcg/actuation HFA aerosol inhaler 100 inh INHALATION BID RF: 0 atorvastatin 20 mg tablet 20 mg PO DAILY RF: 0 aspirin [Adult Low Dose Aspirin] 81 mg Tablet,Delayed Release (Dr/Ec) 81 mg PO DAILY RF: 0 cholecalciferol (vitamin D3) 2,000 units PO DAILY RF: 0 levothyroxine 50 mcg tablet 50 mcg PO DAILY RF: 0 triamterene-hydrochlorothiazid 37.5-25 mg Capsule 1 cap PO DAILY RF: 0 Follow up/Referrals: Sommer Hicks MD [Primary Care Provider] - Discharge Health Status Multidrug resistant organism: No MDRO Precautions: David Diet/Activity/Treatments Diet: Diet as Tolerated and Low-sodium Activity: - WBAT LLE 2. Left thumb base of proximal phalanx fracture - NWB through hand, OK to weight bear through elbow Visit Report/Discharge Packet Instructions: DI for Hip Replacement, How to Prevent Falls, DI for Prescription Opioid Use Discharge Data Primary Care Provider: Sommer Hicks Discharges patient from system. Discharge Date/Time: 09/20/19 11:09
[2019-09-20] MEDS: ATORVASTATIN 20 MG TABLET PO (08:09)
[2019-09-20] MEDS: SODIUM CHLORIDE 0.9% FLUSH 10 ML IV (08:09)
[2019-09-20] MEDS: OXYCODONE/ACETAMINOPHEN 5/325 TABLET 1 TAB PO (08:10)
[2019-09-20] MEDS: ENOXAPARIN 40 MG/0.4 ML SYRINGE SUBCUT (08:10)
[2019-09-20] MEDS: ASPIRIN EC 81 MG TABLET PO (08:10)
[2019-09-20] MEDS: LEVOTHYROXINE 50 MCG TABLET PO (08:10)
[2019-09-20 08:46] VITALS: BP 131/76; PULSE 96; RESP 16; TEMP 37.1; O2SAT 93
--- NOTE | 2019-09-20 09:21 | OT.IP.TRT ---
Current Diagnoses Unspecified intracapsular fracture of left femur, initial encounter for closed fracture (09/16/19) Surgery Performed Operation Date: 09/17/19 08:00 Actual Procedures p Hip Cemented Hemiarthroplasty, placement of cast left thumb(Left) - Tyler Mckeon MD Occupational Therapy Treatment Note M2 OT-IP Current Condition Start: 09/19/19 11:00 Freq: Status: Active Protocol: Document 09/19/19 09:51 [facility] (Rec: 09/19/19 11:20 [facility] [id number]) Occupational Therapy Current Condition Current Condition Evaluation Date 09/19/19 Treatment Diagnosis L femoral neck fractur, s/p L hemiart, proxi phalanx fx of left thumb Diagnosis Onset Date 09/16/19 Post Operative Precautions Posterior Hip Precautions No Hip Flexion > 90 degrees,No Hip Internal Rotation,No Hip Adduction Weight Bearing Status Weight Bearing Status Non-Weight Bearing Allowed Weight Bearing Amount (enter % NWB to left hand, WBAT for LLE or #) (%) M3 OT- IP Subjective and Pain Start: 09/19/19 11:00 Freq: Status: Active Protocol: Document 09/20/19 09:10 [facility] (Rec: 09/20/19 09:21 [facility] [id number]) OT- Subjective Occupational Therapy Visit Type Type Treatment Note Visit Start Time 08:42 Visit Stop Time 09:07 Total Visit Minutes 25 Occupational Therapy Visit Comments Patient Comments Pt wanting to use the bathroom. Patient/Caregiver Goals Pt motivated to go to skilled rehab to get better and go home. OT Pain Assessment Pain When Pain Assessed At Rest Pain Present Pain Present Denied Pain M4 OT- IP ADL's Start: 09/19/19 11:00 Freq: Status: Active Protocol: Document 09/20/19 09:10 [facility] (Rec: 09/20/19 09:21 [facility] [id number]) OT ADL-Grooming General Evaluation Grooming Ability Standby Assistance Comments OT Grooming Comments Set-up for items and SBA while standing with platform walker . OT ADL-Oral Care General Eval Oral Care Ability Independent OT ADL-Toileting General Evaluation Toileting Ability Minimal Assistance Areas Needing Assistance Manage Clothing Comments OT Toileting Comments LIZZY to help stephanie/ doff brief over her hips. Reminders best to stand to wipe due to hip precautions. OT ADL-Bathing Comments OT Bathing Comments Pt refusing at this time. M5 OT- IP IADL's Start: 09/19/19 11:00 Freq: Status: Active Protocol: Document 09/19/19 09:51 [facility] (Rec: 09/19/19 11: [facility] [id number]) OT-Instrumental Activities of Daily Living Home Safety Awareness Home Safety Comments Due to pt's posterior hip precautions and NWB to LUE, pt will need to have assist for all Adl and IADl at this time. M6 OT- IP Functional Cognition Start: 09/19/19 11:00 Freq: Status: Active Protocol: Document 09/20/19 09:10 [facility] (Rec: 09/20/19 09:21 [facility] [id number]) Cognitive Factors Limiting Selfcare Function Cognitive Comments Cognitive Assessment Comments VC to help incorporate hip precautions during ADl and functional mobility needs. M7 OT- IP Mobility and Balance Start: 09/19/19 11:00 Freq: Status: Active Protocol: Document 09/20/19 09:10 [facility] (Rec: 09/20/19 09:21 [facility] [id number]) OT- Bed Mobility Assessment Sit to Supine Sit to Supine Assist Minimal Assistance OT-Transfer Assessment Sit to and From Stand Sit to and from Stand Minimal Assistance Devices Transfer Assistive Devices Gait Belt,Platform Walker Comments Mobility Comments Much better today and just needing LIZZY to stand with FWW . CGA to walk and after getting tired needing LIZZY to help guide the platform walker. OT- Balance Assessment Sitting Balance and Reactions Static Sitting Balance Ability Normal Dynamic Sitting Balance Ability Good Standing Balance and Reactions Static Standing Balance Ability Fair M8 OT- IP Objective Assessments Start: 09/19/19 11:00 Freq: Status: Active Protocol: Document 09/19/19 09:51 [facility] (Rec: 09/19/19 11: [facility] [id number]) OT Gross Range of Motion Upper Extremity Range of Motion Assessment Left Impaired OT Strength Comments Strength Comments RUE 4+/5, LUE NT due to pt in thumb spica cast. OT- Coordination Assessment Comments Coordination Comments Arthritic changes in hands. M9 OT- IP Assessment and Plan Start: 09/19/19 11:00 Freq: Status: Active Protocol: Document 09/20/19 09:10 [facility] (Rec: 09/20/19 09:21 [facility] [id number]) OT Summary Assessment and Plan Potential Rehabilitation Potential Good Analytic Complexity at Evaluation Low Summary OT Impairments Balance,Functional Mobility, Self-Feeding,Grooming,Dressing ,Toileting,Bathing,Toilet Transfers,Shower Transfers, Activity Tolerance Progress Towards Goals Progressing Toward Goals Assessment Summary Pt lookiing to go to skilled rehab today and is very pleasant and motivated to get better. Treatment Plan OT Treatment Plan ADL Training,Functional Cognition Training,Functional Mobility,Patient/Family Education,Discharge Planning Discharge Recommendations OT Discharge Recommendations SNF Rehab Home Equipment Needs defer to SNF Transportation Needs at Discharge Wheelchair/Cabulance
--- NOTE | 2019-09-20 09:45 | PC.NURSE ---
Day shift: Report given to Libia at [facility] at 0945. All questions answered. Awaiting 1100 pick-up of Pt.
--- NOTE | 2019-09-20 10:03 | CM.DPC ---
DCP/continued: Received notification from provider that patient okay to d/c to SNF today. Per previous CM notes patient preference for SNF is [facility]. Placed call to October and she confirms acceptance. Met with patient to confirm plan and she is agreeable and will notify her family. PASRR completed and patient scheduled to be picked up at approximately 11:00AM. P: [facility] today. MEHRDAD Chavira Discharge Planning/Care Management Advanced directive, confirm from FAMILY Start: 09/16/19 12:32 Freq: Q24H Status: Active Protocol: Document 09/16/19 12:32 EM (Rec: 09/16/19 12:35 EM [id number]) Advance Directive, confirm on record Time 12:30 Person contacted Bill Copy received No Document 09/19/19 12:00 EM (Rec: 09/19/19 12:06 EM [id number]) Advance Directive, confirm on record Time 12:30 Person contacted Bill Copy received No CM Discharge Assessment Start: 09/17/19 12:43 Freq: Status: Active Protocol: Document 09/17/19 12:44 (Rec: 09/17/19 13:08 [id number]) Discharge Planning Assessment Advance Directives? Yes History Provided By Patient,Family Member,Medical Record Prior Living Arrangements House Household Members family Type of transporation used prior to Drives own vehicle admit Independent with ADL's Yes Is patient alert and oriented? Yes Caregiver for Another No DME Already Rented / Owned FWW / Walker Patient/Family Preference Detention Facility,Home with Home Health Comment Patient and family are hoping for home health as first choice before going to skilled rehab. Barriers to Discharge No Comment Has good family support, and will arange family to stay with her. They are open to prison if needed. Discharge Plan Detention Facility Transportation Arrangement Facility, or family, if patient goes home with home health Referrals Initiated Detention Additional Comment Sent to [facility] to review in case she needs skilled rehab. If patient plan is home with home health No : Has signed face to face form been completed? If patient plan is SNF: Has PASSR been No completed? Comment Patient just had surgery, and has not yet been up with P.T. to help with determination of home with home health versus prison. SNF/HH Preference No preference at this time. Has Agency SNF been contacted Yes Comment October at [facility] is reviewing . Whiteboard Updated in Patient Room with Yes name and ext. # of Commercial Loan Reviewer Review Status In Process Next Review Type Continued Stay Review 09/17/19 12:49 CM Disch. Assessment Note by Yuridia Perkins DCP: Case received, EMR reviewed and met with patient. Introduced self and role. Patient also gave permission to call her son, Darryl, for any additional information. Was able to obtain information from patient regarding her baseline activity level and living situation before fall. Was also able to obtain additional information from son, Darryl, and [id number], Brook. DCP assessment completed with information currently available. Patient is a 78 year old female who admitted yesterday morning to the care of the hospitalist/orthopedic team. PCP: Dr. Hicks. Payer: confirmed: Medicare/[employer]. Patient came to the hospital secondary to a ground level fall that occurred at home. Patient had been on uneven ground, for she resides in daylight basement apartment in son's home, and also had some dizziness. She sustained a closed fracture of her hip, as well as a thumb fracture. She had surgery today, and is now back in her room. Was able to meet with patient. She is alert and oriented, stated, she is a little fuzzy, since surgery, and it would be ok to contact her son Darryl, for any additional information. She confirmed that she resides in her son and [id number]'s basement apartment in [facility]. She stated that she is independent at baseline, uses a walker. Discussed prison, and she stated, I would rather not go to a prison, due to concerns of COVID. Mentioned to her that [facility] in [place] has no confirmed cases as of now. Stated, can go ahead with referral, but really want home, for she can hire a caregiver if needed, and would be ok with home health. She encouraged this casey saw operator to also discuss with her son. Spoke to Darryl, her son, and [id number], Yanely. They stated that they hope as first choice that she can go home, for they will have family to stay with downstairs, and she has no stairs to navigate. She also mentioned that they are fixing up her apartment to have toilet riser, and anything she needs. They also stated, home health would be preferred first, unless it is determined that she really needs skilled. They indicated that they are not familiar with home health agencies, and have no preference. They are open to her going to prison if this is what she needs. P: DCP to continue to follow and be available for any resources needed. Have sent referral to [facility] in case she needs prison. If home health is an option, will send to agency that is on calendar for the week. Will see how she does with P.T. and look at their recommendations. Yuridia Perkins, RN/Receptionist Scheduler Initialized on 09/17/19 12:49 - END OF NOTE Document 09/20/19 10:02 KJS (Rec: 09/20/19 10:02 KJS [id number]) Discharge Planning Assessment Assigned Commercial Loan Reviewer MEHRDAD Chavira Advance Directives? Yes History Provided By Patient,Family Member,Medical Record Prior Living Arrangements House Household Members family Type of transporation used prior to Drives own vehicle admit Independent with ADL's Yes Is patient alert and oriented? Yes Caregiver for Another No DME Already Rented / Owned FWW / Walker Patient/Family Preference Detention Facility,Home with Home Health Comment Patient and family are hoping for home health as first choice before going to skilled rehab. Barriers to Discharge No Comment Has good family support, and will arange family to stay with her. They are open to prison if needed. Discharge Plan Detention Facility Transportation Arrangement Facility, or family, if patient goes home with home health Referrals Initiated Detention Additional Comment Sent to [facility] to review in case she needs skilled rehab. If patient plan is home with home health No : Has signed face to face form been completed? If patient plan is SNF: Has PASSR been No completed? Comment Patient just had surgery, and has not yet been up with P.T. to help with determination of home with home health versus prison. SNF/HH Preference No preference at this time. Has Agency SNF been contacted Yes Comment October at [facility] is reviewing . Whiteboard Updated in Patient Room with Yes name and ext. # of Commercial Loan Reviewer Review Status In Process Next Review Type Continued Stay Review
--- NOTE | 2019-09-20 10:29 | P.PN_ITS ---
Subjective Subjective Date Patient Seen: 09/20/19 Time Patient Seen: 10:30 Interval history: Patient is a 78 yo female with multiple medical co- morbidities. She sustained a displaced left femoral neck fracture and a left thumb fracture after a GLF. She is now post-op day 3 from left hip cemented hemiarthroplasty as well as thumb spica cast placement for the left hand. Overall she is doing well. Up with PT yesterday, slow. Pain is well controlled. Thumb spica cast complicates FWW use. Anticipate DC to rehab today. Exam Vital Signs (past 8 hours): - 09/20/19 04:00 09/20/19 07:52 09/20/19 08:46 Temperature 97.7 F 98.8 F Pulse Rate 87 96 H Respiratory Rate 18 16 Blood Pressure 141/70 H 131/76 Pulse Oximetry 94 96 93 Oxygen Delivery Method Room Air Oxygen Flow Rate 0 Narrative Exam Narrative: NV intact in LLE. Chronic peripheral vascular disease skin changes. Up walking with FWW. AAOx3 Objective Labs Result Diagrams: 09/19/19 05:45 09/19/19 05:45 Labs: Laboratory Results - last 24 hr 09/19/19 13:55 COVID-19 PCR Negative Assessment & Plan Assessment & Plan narrative: Patient is a 78 yo female with multiple medical comorbidites including prior stroke, CLL and COPD. She is now s/p left hip cemented hemiarthroplasty and left thumb spica cast application. 1. Left femoral neck fracture - now status post left hip cemented della-arthroplasty on 09/17/2019 - WBAT LLE - Posterior hip precautions - PT/OT eval and treat, ongoing - continue DVT prophylaxis per medical management - platform attachment for FWW on left 2. Left thumb base of proximal phalanx fracture - thumb spica cast - NWB through hand, OK to weight bear through elbow Time Spent With Patient Time with patient: less than 15 minutes
--- NOTE | 2019-09-20 11:03 | PT.IPTN ---
Current Diagnoses Unspecified intracapsular fracture of left femur, initial encounter for closed fracture (09/16/19) Surgery Performed Operation Date: 09/17/19 08:00 Actual Procedures p Hip Cemented Hemiarthroplasty, placement of cast left thumb(Left) - Tyler Mckeon MD Physical Therapy Treatment Note M2 PT-IP Current Condition Start: 09/18/19 08:28 Freq: NEEDED Status: Discharge Protocol: Document 09/18/19 11:26 AW (Rec: 09/18/19 11:48 AW [id number]) Physical Therapy Current Condition Current Condition Evaluation Date 09/18/19 Treatment Diagnosis L femur fx s/p hemiarthro; L 1st prox phalanx fx; difficulty in walking Onset Date 09/16/19 Precautions Posterior Hip Precautions No Hip Flexion > 90 degrees,No Hip Internal Rotation,No Hip Adduction Brace thumb spica splint on left wrist Other Precautions per Dr. Mckeon, NWB left wrist Weight Bearing Status Weight Bearing Status Weight Bear as Tolerated M3 PT-IP Subjective Start: 09/18/19 08:28 Freq: NEEDED Status: Discharge Protocol: Document 09/20/19 10:47 KS (Rec: 09/20/19 11:15 KS [email or web address]) Subjective Physical Therapy Visit Type Type Treatment Note Visit Start Time 10:47 Visit Stop Time 11:03 Total Visit Minutes 16 Number of AGRICULTURE RESEARCH DIRECTOR Visits 1 Physical Therapy Visit Comments Patient Comments Pt waiting on d/c to [facility] , but agreeable to review LE strengthening. M4 PT-IP Mobility and Gait Start: 09/18/19 08:28 Freq: NEEDED Status: Discharge Protocol: Document 09/20/19 10:47 KS (Rec: 09/20/19 11:15 KS [id number]) PT-Transfer Assessment Comments Mobility Comments Pt in bed upon arrival from therapy and stated she wants to save energy for transfer to [facility]. Pt able to recall 2/3 precautions w/ reminder of no crossing midline. Pt then performed 1x10 bilateral ankle pumps, quad sets, glute sets, heel slides, and SLR. Pt left w/ SLOT ATTENDANT for d/c. M5 PT-IP Objective Assessments Start: 09/18/19 08:28 Freq: NEEDED Status: Discharge Protocol: Document 09/18/19 11:26 AW (Rec: 09/18/19 11:48 AW [id number]) Orientation Orientation/Cognition Level of Alertness Alert Orientation Name,Day of Week,Place, Situation Language Function Ability No Deficits Noted Safety Awareness Understands Safety Issues Memory Description No Deficits Noted Gross Range of Motion Upper Extremity ROM Assessment Left Impaired Impairments left wrist in spica splint Lower Extremity ROM Assessment Left Impaired Strength Lower Extremity Strength Assessment Left Impaired Comments Strength Comments RLE grossly 4/5 Coordination Assessment Gross Coordination Gross Coordination WNL Sensation Assessment Sensation Gross Sensation WNL Muscle Tone Muscle Tone WNL Yes M6 PT-IP Treatment Start: 09/18/19 08:28 Freq: NEEDED Status: Discharge Protocol: Document 09/20/19 10:47 KS (Rec: 09/20/19 11:15 KS [id number]) Physical Therapy Treatment Exercises Exercises Ankle Pumps,Gluteal Sets,Quad Sets,Heel Slides,Straight Leg Raises Education Education Provided Precautions,Weight Bearing Status,Safety Other Treatments Other Treatment Performed Pt recalled 2/3 precautions, but needed reminders for not crossing midline. Pt stated she is uncomfortable w/ legs crossed anyway so she will be able to adhere to that precaution easily. Pt also discussed strategies for sit<> stand, getting out of bed on R side, and how to turn while standing to avoid IR. M7 PT-IP Assessment and Plan Start: 09/18/19 08:28 Freq: NEEDED Status: Discharge Protocol: Document 09/20/19 10:47 KS (Rec: 09/20/19 11:15 KS [id number]) PT Summary Assessment and Plan Potential Rehabilitation Potential Good Status of Condition at Evaluation Stable Summary Impairments Pain,ROM,Strength,Balance,Bed Mobility,Transfers,Gait, Activity Tolerance Progress Towards Goals Progressing Toward Goals Assessment Summary Pt was about to be d/c and wanted to conserve energy, but reviewed all precautions, strategies for mobility to adhere to precautions, and LE strengthening exercises including ankle pumps, quad sets, glute sets, heel slides, and SLR. Pt will benefit from SNF to improve strength and functional mobility. Goals Bed Mobility Goal Contact Guard Assistance Transfer Goal Contact Guard Assistance,Front Wheeled Walker Gait Goal Contact Guard Assistance,Front Wheel Walker Gait Distance 100 Days to Meet Goals 10 Frequency of Treatment Frequency Of Treatment Twice a Day Treatment Plan Physical Therapy Treatment Plan Bed Mobility Training,Transfer Training,Gait Training, Therapeutic Exercise,Balance Retraining,Post Op Education, Discharge Planning,Hot or Cold Pack Recommendations To Nursing Amount of Assist Needed 1 Person Assist Discharge Recommendations PT Discharge Recommendations Home with Assistance,Home Health,SNF Rehab Other Discharge Recommendations SNF vs home with assist and HH depending on progress Equipment Needed for Home Before FWW, tub transfer bench, Discharge bedside commode if going home Transportation Needs at Discharge Private Vehicle,Wheelchair/ Cabulance
--- NOTE | 2019-09-20 11:08 | PC.NURSE ---
Day shift: Pt left unit in WC to [facility] at approx 1105. Pt has all personal belongings. scrips and packet are with SNF transport person. Pt was seen by Dr Mckeon and he said the dressing would be changed when she has her f/u appointment.
== END 2019-09-20 11:09 | DRG 470 ==
LOC: ED 09:12 → AC 10:44
PROVIDERS: Orthopaedic Surgery Adult Reconstructive Orthopaedic Surgery; Admitting Provider Internal Medicine; Emergency Provider Emergency Medicine; Family Provider Internal Medicine; PCP Internal Medicine; Referring Provider Emergency Medicine; Visit Provider Internal Medicine
PROC: 0SRS0JZ Replacement of Left Hip Joint, Femoral Surface with Synthetic Substitute, Open Approach (ICD-10-PCS; CPT 27125; principal; 2019-09-17 08:00)
DX: M80.052A Age-related osteoporosis with current pathological fracture, left femur, initial encounter for fracture (principal); C91.10 Chronic lymphocytic leukemia of B-cell type not having achieved remission; S62.515A Nondisplaced fracture of proximal phalanx of left thumb, initial encounter for closed fracture; J44.9 Chronic obstructive pulmonary disease, unspecified; E87.6 Hypokalemia; E03.9 Hypothyroidism, unspecified; I73.9 Peripheral vascular disease, unspecified; I10 Essential (primary) hypertension; F17.210 Nicotine dependence, cigarettes, uncomplicated; W18.30XA Fall on same level, unspecified, initial encounter; Y92.008 Other place in unspecified non-institutional (private) residence as the place of occurrence of the external cause; Z11.59 Encounter for screening for other viral diseases; Z23 Encounter for immunization
CPT/HCPCS: 36415; 51701; 71045; 72170; 73130; 73502; 73552; 80048; 80053; 81003; 81015; 82550; 83690; 83735; 84439; 84443; 84484; 85025; 85610; 85730; 87635; 90471; 93005; 94640; 94760; 94762; 96374; 96376; 97110; 97116; 97161; 97165; 97530; 97535; 99284; 99285; C1776; 90715; J0690; J1100; J1650; J2270; J2405; J2704; J3010; J3480; J7613

== ENCOUNTER → 2019-09-27 11:22 | Outpatient (ROUT) | payer SELFPAY ==
[2019-09-16 12:24] VITALS: BMI 20.9
[2019-09-28 15:17] LABS: COVID19 Sendout Not Detected (Not Detect)
== END ==
PROVIDERS: Family Provider Internal Medicine; PCP Internal Medicine; Visit Provider Internal Medicine
DX: Z11.59 Encounter for screening for other viral diseases (principal)
CPT/HCPCS: 87635

== ENCOUNTER → 2019-09-30 13:07 | Outpatient (CLI) | payer MEDICARE, OTHER, SELFPAY ==
[2019-09-16 12:24] VITALS: BMI 20.9
--- NOTE | 2019-09-30 | DI.RAD.S_ITS ---
PROCEDURE: XR HIP W PEL IF DONE LT 2V INDICATIONS: Age-related osteoporosis with current pathological fracture TECHNIQUE: 3 views of the hip were acquired. COMPARISON: [facility], , XR HIP W PEL IF DONE LT 2V, 09/16/2019, 9:01. FINDINGS: Bones: Postoperative changes related to left hip arthroplasty. Overlying skin eduardo and soft tissue changes. There is expected postoperative alignment Hardware appears intact. Numerous calcifications in the region of the hamstring origins bilaterally in keeping with chronic tendinopathy. Lower lumbar spondylosis and facet disease. Vascular stent. 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 Dictated by: Jeff Joy M.D. on 09/30/2019 at 15:58 Approved by: Jeff Joy M.D. on 09/30/2019 at 15:59
== END ==
PROVIDERS: Family Provider Internal Medicine; PCP Internal Medicine; Referring Provider Orthopaedic Surgery Adult Reconstructive Orthopaedic Surgery; Visit Provider Orthopaedic Surgery Adult Reconstructive Orthopaedic Surgery
DX: M80.052D Age-related osteoporosis with current pathological fracture, left femur, subsequent encounter for fracture with routine healing (principal); M16.11 Unilateral primary osteoarthritis, right hip; Z96.642 Presence of left artificial hip joint
CPT/HCPCS: 73502

== ENCOUNTER 2021-05-16 12:58 | Inpatient (IN) | payer MEDICARE, OTHER, SELFPAY ==
[2019-09-16 12:24] VITALS: BMI 20.9
[2021-05-16] VITALS (20 sets, daily range): BP systolic 116–166; BP diastolic 56–93; PULSE 68–123; RESP 21–31; TEMP 36.8–37.2; O2SAT 80–100; BMI 21.0; BMI 18.5
--- NOTE | 2021-05-16 13:08 | DI.RAD.S_ITS ---
PROCEDURE: XR CHEST 1V INDICATIONS: shortness of breath TECHNIQUE: One view of the chest was acquired. COMPARISON: [facility], CR, XR CHEST 1V, 09/16/2019, 9:01. FINDINGS: Surgical changes and devices: None. Lungs and pleura: Increased right basilar opacity and blunting of the costophrenic angle. No pneumothorax. Mediastinum: Mediastinal contours appear normal. Heart size is normal. Bones and chest wall: No suspicious bony lesions. Overlying soft tissues appear unremarkable. IMPRESSION: Mild right effusion with superimposed consolidation consistent with pneumonia. Dictated by: Brook Mark M.D. on 05/16/2021 at 14:03 Approved by: Brook Mark M.D. on 05/16/2021 at 14:18
--- NOTE | 2021-05-16 13:20 | ED.SOB ---
HPI - SOB/Dyspnea <Arsen AparicioDO - Last Filed: 05/23/21 04:56> General Chief Complaint: Shortness of Breath/Dyspnea Stated Complaint: Flu,Chest Congestion,Cough Time Seen by Provider: 05/16/21 13:00 Mode of arrival: Ambulatory History of Present Illness HPI Narrative: 80-year-old female former smoker with history of hypertension and hyperlipidemia presents with family in the chief complaint of gradually worsening upper respiratory symptoms since [place]. She has had subjective fever and chills and has had multiple negative COVID test. She has had some nasal congestion but primary complaint is of shortness of breath and productive cough. She has developed pleuritic type chest pain that is sharp and stabbing and worse with cough, so she with her lateral ribs as well as deep breath. She has had no blood in her sputum. She denies any nausea or vomiting but has had diarrhea. She is fatigued, weak and lightheaded. On arrival her pulse ox is 85%, heart rate in the 120s, she has labored breathing. Related Data Home Medications Medication Instructions Recorded Confirmed aspirin 81 mg tablet,delayed 81 mg PO DAILY 09/16/19 05/16/21 release (Adult Low Dose Aspirin) atorvastatin 20 mg tablet 20 mg PO DAILY 09/16/19 05/16/21 cholecalciferol (vitamin D3) 2,000 units PO DAILY 09/16/19 05/16/21 levothyroxine 50 mcg tablet 25 mcg PO DAILY 09/16/19 05/16/21 mometasone-formoterol HFA 100 100 inh INHALATION BID 09/16/19 05/16/21 mcg-5 mcg/actuation aerosol inhaler (Dulera) clopidogrel 75 mg tablet 75 mg PO DAILY 05/16/21 05/16/21 cyanocobalamin (vitamin B-12) 1 tab PO DAILY 05/16/21 05/16/21 losartan 25 mg tablet 25 mg PO BID 05/16/21 05/16/21 Previous Rx's Medication Instructions Recorded cefdinir 300 mg capsule 300 mg PO BID #14 cap 05/20/21 ipratropium 20 mcg-albuterol 100 1 puff INHALATION QID #4 g 05/20/21 mcg/actuation mist for inhalation (Combivent Respimat) Allergies Allergy/AdvReac Type Severity Reaction Status Date / Time bee venom protein (honey bee) Allergy Severe Anaphylaxis Verified 05/16/21 13:03 lidocaine [From XYLOCAINE] Allergy Severe ANAPHYLAXIS Verified 05/16/21 13:03 Review of Systems <Arsen Aparicio DO - Last Filed: 05/23/21 04:56> Review of Systems Narrative: GENERAL: See HPI HEENT: Denies sinus pain, ear pain, sore throat, difficulty swallowing, dizziness. RESPIRATORY: See HPI CARDIOVASCULAR: See HPI GASTROINTESTINAL: See HPI : Denies dysuria, frequency, incontinence, hematuria, urinary retention. MUSCULOSKELETAL: denies weakness, joint pain, or bony pain SKIN: Denies rash, skin lesions, or other NEUROLOGIC: Denies weakness, headache, numbness, change in speech, confusion, seizures, incoordination. PSYCHIATRIC: No concerning psychosocial issues. 12 point review of systems is negative except for those stated above Patient History <Arsen Aparicio DO - Last Filed: 05/23/21 04:56> Medical History (Updated 05/16/21 @ 16:53 by Jose G Flores MD) COPD (chronic obstructive pulmonary disease) Leukemia Surgical History History of left knee replacement Social History household members: family Smoking Status: Former smoker Smoking Status: Former smoker alcohol intake frequency: holidays/special occasions only Alcohol type: hard liquor Substance Use Type: does not use Exam <Arsen Aparicio DO - Last Filed: 05/23/21 04:56> Narrative Exam Narrative: GENERAL: [80 year old patient appears stated age. Thin, labored breathing, ill-appearing HEAD: Atraumatic. Normocephalic. EYES: Pupils equal round and reactive. Extraocular motions intact. No scleral icterus. No injection or drainage. ENT: Nose without bleeding, purulent drainage. Throat without erythema, tonsillar hypertrophy or exudate. Airway patent. NECK: Trachea midline. Non tender CARDIOVASCULAR: Tachycardic but regular rhythm without murmurs, gallops, or rubs. RESPIRATORY: Increased work of breathing with minimal exertion, wet sounding cough noted from the door, rapid, shallow breathing, shortness GASTROINTESTINAL: Abdomen soft, non-tender, nondistended. EXTREMITIES: No edema or joint tenderness. BACK: Nontender without deformity or crepitance. No flank tenderness. NEURO: AOx3. SKIN: No rash or erythema of visible areas Initial Vital Signs Initial Vital Signs: Vital Signs Temperature 98.3 F 05/16/21 13:03 Pulse Rate 123 H 05/16/21 13:03 Respiratory Rate 21 05/16/21 13:03 Blood Pressure 134/93 H 05/16/21 13:03 Pulse Oximetry 85 L 05/16/21 13:03 <Jose G Flores MD - Last Filed: 05/16/21 18:20> Initial Vital Signs Initial Vital Signs: Vital Signs Temperature 98.3 F 05/16/21 13:03 Pulse Rate 123 H 05/16/21 13:03 Respiratory Rate 05/16/21 13:03 Blood Pressure 134/93 H 05/16/21 13:03 Pulse Oximetry 85 L 05/16/21 13:03 Course <Arsen Aparicio DO - Last Filed: 05/23/21 04:56> Orders Ordered: Discontinued Medications Acetaminophen (Acetaminophen 325 Mg Tablet) 650 mg PO Q6HR PRN PRN Reason: Fever/Mild Pain (1-3) Last Admin: 05/17/21 09:41 Dose: 650 mg Documented by: CWOOD Al Hydrox/Mg Hydrox/Simethicone (Mag Hydrox/Alum/Simeth 30 Ml Udc) 30 ml PO Q6HR PRN PRN Reason: Dyspepsia Albuterol (Albuterol 1.25 Mg/3 Ml Neb (Pediatric)) 1.25 mg INH RTQ4HR PRN PRN Reason: Shortness Of Breath Or Wheezing Albuterol/Ipratropium (Albuterol/Ipratropium 3 Ml Ampul) 3 ml INH NOW ONE Stop: 05/16/21 15:01 Last Admin: 05/16/21 15:25 Dose: 3 ml Documented by: [email or web address] Albuterol/Ipratropium (Albuterol/Ipratropium 3 Ml Ampul) 3 ml INH [id number] [facility] Last Admin: 05/20/21 07:34 Dose: Not Given Documented by: Admin: 05/19/21 20:53 Dose: 3 ml Documented by: Admin: 05/19/21 15:24 Dose: 3 ml Documented by: Admin: 05/19/21 08:06 Dose: 3 ml Documented by: Admin: 05/18/21 19:31 Dose: 3 ml Documented by: Admin: 05/18/21 13:22 Dose: 3 ml Documented by: Admin: 05/18/21 07:08 Dose: 3 ml Documented by: Admin: 05/17/21 17:24 Dose: 3 ml Documented by: Admin: 05/17/21 10:03 Dose: 3 ml Documented by: Admin: 05/17/21 09:00 Dose: 3 ml Documented by: Admin: 05/16/21 20:26 Dose: 3 ml Documented by: BAKARI Ascorbic Acid (Ascorbic Acid 500 Mg Tablet) 500 mg PO BID [facility] Last Admin: 05/20/21 10:07 Dose: 500 mg Documented by: Admin: 05/19/21 22:01 Dose: 500 mg Documented by: Admin: 05/19/21 08:57 Dose: 500 mg Documented by: Admin: 05/18/21 20:07 Dose: 500 mg Documented by: Admin: 05/18/21 09:35 Dose: 500 mg Documented by: Admin: 05/17/21 21:10 Dose: 500 mg Documented by: Admin: 05/17/21 09:42 Dose: 500 mg Documented by: Admin: 05/16/21 20:52 Dose: 500 mg Documented by: ZARINA Aspirin (Aspirin Ec 81 Mg Tablet) 81 mg PO DAILY [facility] Last Admin: 05/20/21 10:07 Dose: 81 mg Documented by: Admin: 05/19/21 08:57 Dose: 81 mg Documented by: Admin: 05/18/21 09:35 Dose: 81 mg Documented by: Admin: 05/17/21 09:40 Dose: 81 mg Documented by: DEEPTI Atorvastatin Calcium (Atorvastatin 20 Mg Tablet) 20 mg PO DAILY [facility] Benzonatate (Benzonatate 100 Mg Capsule) 200 mg PO TID [facility] Last Admin: 05/20/21 10:07 Dose: 200 mg Documented by: Admin: 05/19/21 22:01 Dose: 200 mg Documented by: Admin: 05/19/21 16:01 Dose: 200 mg Documented by: Admin: 05/19/21 08:57 Dose: 200 mg Documented by: Admin: 05/18/21 20:07 Dose: 200 mg Documented by: Admin: 05/18/21 14:51 Dose: 200 mg Documented by: Admin: 05/18/21 09:35 Dose: 200 mg Documented by: Admin: 05/17/21 21:08 Dose: 200 mg Documented by: Admin: 05/17/21 14:55 Dose: 200 mg Documented by: Admin: 05/17/21 09:40 Dose: 200 mg Documented by: Admin: 05/16/21 20:53 Dose: 200 mg Documented by: ZARINA Bisacodyl (Bisacodyl 10 Mg Supp) 10 mg WI DAILY PRN PRN Reason: Constipation Budesonide (Budesonide 0.5 Mg/2 Ml Neb) 0.5 mg INH RTBID [facility] Admin: 05/20/21 07:35 Dose: 0.5 mg Documented by: Admin: 05/19/21 20:53 Dose: 0.5 mg Documented by: Admin: 05/19/21 08:06 Dose: 0.5 mg Documented by: Admin: 05/18/21 19:31 Dose: 0.5 mg Documented by: Admin: 05/18/21 07:08 Dose: 0.5 mg Documented by: Admin: 05/17/21 19:53 Dose: 0.5 mg Documented by: Admin: 05/17/21 10:03 Dose: 0.5 mg Documented by: Admin: 05/16/21 20:26 Dose: 0.5 mg Documented by: BAKARI Calcium Carbonate (Calcium Carbonate 500 Mg Tab) 1,000 mg PO Q4HR PRN PRN Reason: Dyspepsia Doxycycline Hyclate (Doxycycline Hyclate 100 Mg Tablet) 100 mg PO BID [facility] Admin: 05/20/21 10:07 Dose: 100 mg Documented by: Admin: 05/19/21 22:01 Dose: 100 mg Documented by: ANDRZEJ Enoxaparin Sodium (Enoxaparin 40 Mg/0.4 Ml Syringe) 40 mg SUBCUT DAILY [facility] Last Admin: 05/20/21 10:07 Dose: 40 mg Documented by: Admin: 05/19/21 08:57 Dose: 40 mg Documented by: Admin: 05/18/21 09:34 Dose: 40 mg Documented by: Admin: 05/17/21 09:39 Dose: 40 mg Documented by: DEEPTI Famotidine (Famotidine 20 Mg Tablet) 40 mg PO BID [facility] Last Admin: 05/18/21 09:35 Dose: 40 mg Documented by: Admin: 05/17/21 21:08 Dose: 40 mg Documented by: Admin: 05/17/21 09:41 Dose: 40 mg Documented by: Admin: 05/16/21 20:53 Dose: 40 mg Documented by: ZARINA Famotidine (Famotidine 20 Mg Tablet) 20 mg PO DAILY [facility] Last Admin: 05/19/21 08:58 Dose: 20 mg Documented by: CARMEN Lactated Ringer's (Lactated Ringers) 1,619.31 mls @ 539.77 mls/hr 30 ml/kg infuse over 3 hr (1619.31 ml) IV NOW ONE Stop: 05/16/21 16:18 Last Infusion: 05/16/21 18:12 Dose: 0 mls/hr Documented by: Infusion: 05/16/21 16:05 Dose: 539.77 mls/hr Documented by: Infusion: 05/16/21 15:26 Dose: 0 mls/hr Documented by: Admin: 05/16/21 13:37 Dose: 539.77 mls/hr Documented by: NAVA Ceftriaxone Sodium 1,000 mg/ (Sodium Chloride) 100 mls @ 200 mls/hr IV NOW ONE Stop: 05/16/21 13:53 Last Infusion: 05/16/21 16:04 Dose: 0 mls/hr Documented by: Admin: 05/16/21 15:26 Dose: 200 mls/hr Documented by: CELIA Azithromycin 500 mg/ Dextrose 250 mls @ 250 mls/hr IV NOW ONE Stop: 05/16/21 13:53 Last Infusion: 05/16/21 17:30 Dose: 0 mls/hr Documented by: Admin: 05/16/21 16:04 Dose: 250 mls/hr Documented by: CELIA Ceftriaxone Sodium 1,000 mg/ (Sodium Chloride) 100 mls @ 200 mls/hr IV 1400 [facility] Last Infusion: 05/19/21 16:30 Dose: 0 mls/hr Documented by: Admin: 05/19/21 15:56 Dose: 200 mls/hr Documented by: Infusion: 05/18/21 15:30 Dose: 200 mls/hr Documented by: Admin: 05/18/21 14:51 Dose: 200 mls/hr Documented by: Infusion: 05/17/21 15:26 Dose: 200 mls/hr Documented by: Admin: 05/17/21 14:56 Dose: 200 mls/hr Documented by: DEEPTI Doxycycline Hyclate 100 mg/ (Sodium Chloride) 100 mls @ 100 mls/hr IV Q12H [facility] Last Admin: 05/18/21 06:23 Dose: 100 mls/hr Documented by: Infusion: 05/17/21 19:13 Dose: 100 mls/hr Documented by: Admin: 05/17/21 18:13 Dose: 100 mls/hr Documented by: Infusion: 05/17/21 08:10 Dose: 100 mls/hr Documented by: Admin: 05/17/21 07:09 Dose: 100 mls/hr Documented by: Infusion: 05/16/21 21:52 Dose: 100 mls/hr Documented by: Admin: 05/16/21 20:52 Dose: 100 mls/hr Documented by: ZARINA Doxycycline Hyclate 100 mg/ (Sodium Chloride) 100 mls @ 100 mls/hr IV Q12H [facility] Last Admin: 05/19/21 09:15 Dose: 100 mls/hr Documented by: Infusion: 05/18/21 22:10 Dose: 0 mls/hr Documented by: Admin: 05/18/21 21:09 Dose: 100 mls/hr Documented by: BRAULIO Lactobacillus Acidophilus (Lactobacillus Acidophilus Tablet) 1 each PO TIDWM [facility] Last Admin: 05/20/21 10:07 Dose: 1 each Documented by: Admin: 05/19/21 16:01 Dose: 1 each Documented by: Admin: 05/19/21 11:54 Dose: 1 each Documented by: Admin: 05/19/21 08:54 Dose: 1 each Documented by: Admin: 05/18/21 17:26 Dose: 1 each Documented by: Admin: 05/18/21 12:25 Dose: 1 each Documented by: Admin: 05/18/21 09:35 Dose: 1 each Documented by: Admin: 05/17/21 16:56 Dose: 1 each Documented by: Admin: 05/17/21 11:53 Dose: 1 each Documented by: Admin: 05/17/21 09:40 Dose: 1 each Documented by: DEEPTI Levothyroxine Sodium (Levothyroxine 50 Mcg Tablet) 50 mcg PO DAILY [facility] Last Admin: 05/18/21 17:26 Dose: 50 mcg Documented by: Admin: 05/17/21 09:41 Dose: 50 mcg Documented by: DEEPTI Levothyroxine Sodium (Levothyroxine 50 Mcg Tablet) 50 mcg PO DAILY@0600 [facility] Last Admin: 05/20/21 05:54 Dose: 50 mcg Documented by: Admin: 05/19/21 06:25 Dose: 50 mcg Documented by: BRAULIO Loperamide HCl (Loperamide 2 Mg Capsule) 2 mg PO PRN PRN PRN Reason: Diarrhea Last Admin: 05/19/21 11:54 Dose: 2 mg Documented by: CARMEN Magnesium Chloride (Magnesium Chloride 64 Mg Tablet) 128 mg PO NOW ONE Stop: 05/18/21 10:49 Last Admin: 05/18/21 12:25 Dose: 128 mg Documented by: DEEPTI Magnesium Chloride (Magnesium Chloride 64 Mg Tablet) 128 mg PO NOW ONE Stop: 05/19/21 07:37 Last Admin: 05/19/21 09:15 Dose: 128 mg Documented by: CARMEN Methylprednisolone (Methylprednisolone 125 Mg/2 Ml Vial) 125 mg IV NOW ONE Stop: 05/16/21 15:01 Last Admin: 05/16/21 15:37 Dose: 125 mg Documented by: FAROOQ Methylprednisolone (Methylprednisolone 125 Mg/2 Ml Vial) 60 mg IV Q8H [facility] Last Admin: 05/19/21 09:15 Dose: 60 mg Documented by: Admin: 05/19/21 01:35 Dose: 60 mg Documented by: Admin: 05/18/21 21:57 Dose: Not Given Documented by: Admin: 05/18/21 09:34 Dose: 60 mg Documented by: Admin: 05/18/21 01:32 Dose: 60 mg Documented by: Admin: 05/17/21 18:13 Dose: 60 mg Documented by: Admin: 05/17/21 09:43 Dose: 60 mg Documented by: Admin: 05/17/21 02:36 Dose: 60 mg Documented by: Admin: 05/16/21 20:51 Dose: 60 mg Documented by: ZARINA Methylprednisolone (Methylprednisolone 125 Mg/2 Ml Vial) 60 mg IV Q12H [facility] Metronidazole (Metronidazole 500 Mg Tablet) 500 mg PO TID [facility] Last Admin: 05/19/21 16:01 Dose: 500 mg Documented by: Admin: 05/19/21 08:58 Dose: 500 mg Documented by: Admin: 05/18/21 20:07 Dose: 500 mg Documented by: Admin: 05/18/21 14:51 Dose: 500 mg Documented by: Admin: 05/18/21 09:35 Dose: 500 mg Documented by: Admin: 05/17/21 21:10 Dose: 500 mg Documented by: Admin: 05/17/21 14:55 Dose: 500 mg Documented by: Admin: 05/17/21 09:40 Dose: 500 mg Documented by: Admin: 05/16/21 20:52 Dose: 500 mg Documented by: ZARINA Morphine Sulfate (Morphine 2 Mg/Ml Inj) 2 mg IV Q4HR PRN PRN Reason: Pain, Moderate (4-6) Naloxone HCl (Naloxone 0.4 Mg/Ml Vial) 0.2 mg IV Q2MIN PRN PRN Reason: Opiate Reversal Ondansetron HCl (Ondansetron 4 Mg/2 Ml Inj) 4 mg IV Q8HR PRN PRN Reason: Nausea And Vomiting Sennosides (Sennosides 8.6 Mg Tablet) 17.2 mg PO BEDTIME [facility] Admin: 05/19/21 22:01 Dose: 17.2 mg Documented by: Admin: 05/18/21 20:07 Dose: 17.2 mg Documented by: Admin: 05/17/21 21:10 Dose: Not Given Documented by: Admin: 05/16/21 21:54 Dose: Not Given Documented by: ZARINA Sodium Chloride (Sodium Chloride 0.9% Flush) 10 ml IV PRN PRN PRN Reason: Flush Sodium Chloride (Sodium Chloride 0.9% Flush) 10 ml IV BID [facility] Admin: 05/20/21 10:08 Dose: 10 ml Documented by: CHARLIE Sucralfate (Sucralfate 1 Gm Tablet) 1 gm PO ACHS [facility] Admin: 05/19/21 08:54 Dose: 1 gm Documented by: Admin: 05/18/21 20:07 Dose: 1 gm Documented by: Admin: 05/18/21 17:26 Dose: 1 gm Documented by: Admin: 05/18/21 12:25 Dose: 1 gm Documented by: Admin: 05/18/21 06:22 Dose: 1 gm Documented by: Admin: 05/17/21 21:10 Dose: 1 gm Documented by: Admin: 05/17/21 16:56 Dose: 1 gm Documented by: Admin: 05/17/21 11:53 Dose: 1 gm Documented by: Admin: 05/17/21 07:10 Dose: 1 gm Documented by: Admin: 05/16/21 20:53 Dose: 1 gm Documented by: ZARINA Vitamin D (Cholecalciferol (Vitamin D3) 1,000 Unit Tablet) 2,000 unit PO DAILY [facility] Admin: 05/20/21 10:06 Dose: 2,000 unit Documented by: Admin: 05/19/21 08:57 Dose: 2,000 unit Documented by: Admin: 05/18/21 09:35 Dose: 2,000 unit Documented by: Admin: 05/17/21 09:40 Dose: 2,000 unit Documented by: DEEPTI Vital Signs Vital signs: Vital Signs - 8 hr 05/16/21 13:03 05/16/21 13:13 05/16/21 13:16 Temperature 98.3 F Pulse Rate 123 H 68 Respiratory Rate 21 Blood Pressure 134/93 H 140/70 Pulse Oximetry 85 L 80 L 91 05/16/21 13:30 05/16/21 14:00 05/16/21 14:30 Temperature Pulse Rate 121 H 112 H 106 H Respiratory Rate Blood Pressure 136/62 139/61 124/56 L Pulse Oximetry 90 L 98 98 05/16/21 15:00 05/16/21 15:25 05/16/21 15:30 Temperature Pulse Rate 104 H 104 H 104 H Respiratory Rate 29 H 27 H 31 H Blood Pressure 129/58 L 130/63 Pulse Oximetry 99 97 05/16/21 16:00 05/16/21 16:30 05/16/21 17:04 Temperature Pulse Rate 107 H 102 H 98 H Respiratory Rate 28 H 29 H 25 H Blood Pressure 133/57 L 116/56 L 133/62 Pulse Oximetry 95 99 99 05/16/21 17:30 Temperature Pulse Rate 95 H Respiratory Rate 24 Blood Pressure Pulse Oximetry 100 <Jose G Flores MD - Last Filed: 05/16/21 18:20> Course Course Narrative: Care was assumed from Dr. Aparicio at the time of his planned departure from the ER. The patient has been ill for about 1.5 weeks, with respiratory symptoms. Home tested for COVID-19 has been negative. She has a history of COPD. She has had a productive cough with subjective fever. Initial evaluation showed tachycardia with a proxy a. O2 sats were 85% on room air. She responded to nebs, and oxygen. Evaluation revealed right lower lobe pneumonia. She was given IV Rocephin and IV Zithromax. CTA was done due to an elevated D-dimer. CTA confirmed pneumonia, no evidence of PE. There is also pulmonary nodule and an adrenal nodule noted. The case was discussed with the hospitalist, Dr. Biggs. The patient has been accepted for admission and continuation of care. My repeat evaluation shows vitals to be stable, O2 sat is 97% on 4 L of oxygen. Right basilar rales persist. Tachycardia is improved. She has no peripheral edema. Subjectivelly, she feels much better. Arelis KEBEDE @16:40 pm. Orders Ordered: Discontinued Medications Acetaminophen (Acetaminophen 325 Mg Tablet) 650 mg PO Q6HR PRN PRN Reason: Fever/Mild Pain (1-3) Last Admin: 05/17/21 09:41 Dose: 650 mg Documented by: DEEPTI Al Hydrox/Mg Hydrox/Simethicone (Mag Hydrox/Alum/Simeth 30 Ml Udc) 30 ml PO Q6HR PRN PRN Reason: Dyspepsia Albuterol (Albuterol 1.25 Mg/3 Ml Neb (Pediatric)) 1.25 mg INH RTQ4HR PRN PRN Reason: Shortness Of Breath Or Wheezing Albuterol/Ipratropium (Albuterol/Ipratropium 3 Ml Ampul) 3 ml INH NOW ONE Stop: 05/16/21 15:01 Last Admin: 05/16/21 15:25 Dose: 3 ml Documented by: CTRWES Albuterol/Ipratropium (Albuterol/Ipratropium 3 Ml Ampul) 3 ml INH [id number] [facility] Last Admin: 05/20/21 07:34 Dose: Not Given Documented by: Admin: 05/19/21 20:53 Dose: 3 ml Documented by: Admin: 05/19/21 15:24 Dose: 3 ml Documented by: Admin: 05/19/21 08:06 Dose: 3 ml Documented by: Admin: 05/18/21 19:31 Dose: 3 ml Documented by: Admin: 05/18/21 13:22 Dose: 3 ml Documented by: Admin: 05/18/21 07:08 Dose: 3 ml Documented by: Admin: 05/17/21 17:24 Dose: 3 ml Documented by: Admin: 05/17/21 10:03 Dose: 3 ml Documented by: Admin: 05/17/21 09:00 Dose: 3 ml Documented by: Admin: 05/16/21 20:26 Dose: 3 ml Documented by: BAKARI Ascorbic Acid (Ascorbic Acid 500 Mg Tablet) 500 mg PO BID [facility] Last Admin: 05/20/21 10:07 Dose: 500 mg Documented by: Admin: 05/19/21 22:01 Dose: 500 mg Documented by: Admin: 05/19/21 08:57 Dose: 500 mg Documented by: Admin: 05/18/21 20:07 Dose: 500 mg Documented by: Admin: 05/18/21 09:35 Dose: 500 mg Documented by: Admin: 05/17/21 21:10 Dose: 500 mg Documented by: Admin: 05/17/21 09:42 Dose: 500 mg Documented by: Admin: 05/16/21 20:52 Dose: 500 mg Documented by: ZARINA Aspirin (Aspirin Ec 81 Mg Tablet) 81 mg PO DAILY [facility] Admin: 05/20/21 10:07 Dose: 81 mg Documented by: Admin: 05/19/21 08:57 Dose: 81 mg Documented by: Admin: 05/18/21 09:35 Dose: 81 mg Documented by: Admin: 05/17/21 09:40 Dose: 81 mg Documented by: DEEPTI Atorvastatin Calcium (Atorvastatin 20 Mg Tablet) 20 mg PO DAILY [facility] Benzonatate (Benzonatate 100 Mg Capsule) 200 mg PO TID [facility] Admin: 05/20/21 10:07 Dose: 200 mg Documented by: Admin: 05/19/21 22:01 Dose: 200 mg Documented by: Admin: 05/19/21 16:01 Dose: 200 mg Documented by: Admin: 05/19/21 08:57 Dose: 200 mg Documented by: Admin: 05/18/21 20:07 Dose: 200 mg Documented by: Admin: 05/18/21 14:51 Dose: 200 mg Documented by: Admin: 05/18/21 09:35 Dose: 200 mg Documented by: Admin: 05/17/21 21:08 Dose: 200 mg Documented by: Admin: 05/17/21 14:55 Dose: 200 mg Documented by: Admin: 05/17/21 09:40 Dose: 200 mg Documented by: Admin: 05/16/21 20:53 Dose: 200 mg Documented by: ZARINA Bisacodyl (Bisacodyl 10 Mg Supp) 10 mg [place] DAILY PRN PRN Reason: Constipation Budesonide (Budesonide 0.5 Mg/2 Ml Neb) 0.5 mg INH RTBID [facility] Admin: 05/20/21 07:35 Dose: 0.5 mg Documented by: Admin: 05/19/21 20:53 Dose: 0.5 mg Documented by: Admin: 05/19/21 08:06 Dose: 0.5 mg Documented by: Admin: 05/18/21 19:31 Dose: 0.5 mg Documented by: Admin: 05/18/21 07:08 Dose: 0.5 mg Documented by: Admin: 05/17/21 19:53 Dose: 0.5 mg Documented by: Admin: 05/17/21 10:03 Dose: 0.5 mg Documented by: Admin: 05/16/21 20:26 Dose: 0.5 mg Documented by: BAKARI Calcium Carbonate (Calcium Carbonate 500 Mg Tab) 1,000 mg PO Q4HR PRN PRN Reason: Dyspepsia Doxycycline Hyclate (Doxycycline Hyclate 100 Mg Tablet) 100 mg PO BID [facility] Admin: 05/20/21 10:07 Dose: 100 mg Documented by: Admin: 05/19/21 22:01 Dose: 100 mg Documented by: ANDRZEJ Enoxaparin Sodium (Enoxaparin 40 Mg/0.4 Ml Syringe) 40 mg SUBCUT DAILY [facility] Admin: 05/20/21 10:07 Dose: 40 mg Documented by: Admin: 05/19/21 08:57 Dose: 40 mg Documented by: Admin: 05/18/21 09:34 Dose: 40 mg Documented by: Admin: 05/17/21 09:39 Dose: 40 mg Documented by: DEEPTI Famotidine (Famotidine 20 Mg Tablet) 40 mg PO BID [facility] Admin: 05/18/21 09:35 Dose: 40 mg Documented by: Admin: 05/17/21 21:08 Dose: 40 mg Documented by: Admin: 05/17/21 09:41 Dose: 40 mg Documented by: Admin: 05/16/21 20:53 Dose: 40 mg Documented by: ZARINA Famotidine (Famotidine 20 Mg Tablet) 20 mg PO DAILY [facility] Admin: 05/19/21 08:58 Dose: 20 mg Documented by: CARMEN Lactated Ringer's (Lactated Ringers) 1,619.31 mls @ 539.77 mls/hr 30 ml/kg infuse over 3 hr (1619.31 ml) IV NOW ONE Stop: 05/16/21 16:18 Last Infusion: 05/16/21 18:12 Dose: 0 mls/hr Documented by: Infusion: 05/16/21 16:05 Dose: 539.77 mls/hr Documented by: Infusion: 05/16/21 15:26 Dose: 0 mls/hr Documented by: Admin: 05/16/21 13:37 Dose: 539.77 mls/hr Documented by: NAVA Ceftriaxone Sodium 1,000 mg/ (Sodium Chloride) 100 mls @ 200 mls/hr IV NOW ONE Stop: 05/16/21 13:53 Last Infusion: 05/16/21 16:04 Dose: 0 mls/hr Documented by: Admin: 05/16/21 15:26 Dose: 200 mls/hr Documented by: CELIA Azithromycin 500 mg/ Dextrose 250 mls @ 250 mls/hr IV NOW ONE Stop: 05/16/21 13:53 Last Infusion: 05/16/21 17:30 Dose: 0 mls/hr Documented by: Admin: 05/16/21 16:04 Dose: 250 mls/hr Documented by: ATAYLOR Ceftriaxone Sodium 1,000 mg/ (Sodium Chloride) 100 mls @ 200 mls/hr IV 1400 KOREY Last Infusion: 05/19/21 16:30 Dose: 0 mls/hr Documented by: Admin: 05/19/21 15:56 Dose: 200 mls/hr Documented by: Infusion: 05/18/21 15:30 Dose: 200 mls/hr Documented by: Admin: 05/18/21 14:51 Dose: 200 mls/hr Documented by: Infusion: 05/17/21 15:26 Dose: 200 mls/hr Documented by: Admin: 05/17/21 14:56 Dose: 200 mls/hr Documented by: DEEPTI Doxycycline Hyclate 100 mg/ (Sodium Chloride) 100 mls @ 100 mls/hr IV Q12H [facility] Last Admin: 05/18/21 06:23 Dose: 100 mls/hr Documented by: Infusion: 05/17/21 19:13 Dose: 100 mls/hr Documented by: Admin: 05/17/21 18:13 Dose: 100 mls/hr Documented by: Infusion: 05/17/21 08:10 Dose: 100 mls/hr Documented by: Admin: 05/17/21 07:09 Dose: 100 mls/hr Documented by: Infusion: 05/16/21 21:52 Dose: 100 mls/hr Documented by: Admin: 05/16/21 20:52 Dose: 100 mls/hr Documented by: ZARINA Doxycycline Hyclate 100 mg/ (Sodium Chloride) 100 mls @ 100 mls/hr IV Q12H [facility] Last Admin: 05/19/21 09:15 Dose: 100 mls/hr Documented by: Infusion: 05/18/21 22:10 Dose: 0 mls/hr Documented by: Admin: 05/18/21 21:09 Dose: 100 mls/hr Documented by: BRAULIO Lactobacillus Acidophilus (Lactobacillus Acidophilus Tablet) 1 each PO TIDWM [facility] Last Admin: 05/20/21 10:07 Dose: 1 each Documented by: Admin: 05/19/21 16:01 Dose: 1 each Documented by: Admin: 05/19/21 11:54 Dose: 1 each Documented by: Admin: 05/19/21 08:54 Dose: 1 each Documented by: Admin: 05/18/21 17:26 Dose: 1 each Documented by: Admin: 05/18/21 12:25 Dose: 1 each Documented by: Admin: 05/18/21 09:35 Dose: 1 each Documented by: Admin: 05/17/21 16:56 Dose: 1 each Documented by: Admin: 05/17/21 11:53 Dose: 1 each Documented by: Admin: 05/17/21 09:40 Dose: 1 each Documented by: DEEPTI Levothyroxine Sodium (Levothyroxine 50 Mcg Tablet) 50 mcg PO DAILY [facility] Last Admin: 05/18/21 17:26 Dose: 50 mcg Documented by: Admin: 05/17/21 09:41 Dose: 50 mcg Documented by: DEEPTI Levothyroxine Sodium (Levothyroxine 50 Mcg Tablet) 50 mcg PO DAILY@0600 [facility] Last Admin: 05/20/21 05:54 Dose: 50 mcg Documented by: Admin: 05/19/21 06:25 Dose: 50 mcg Documented by: BRAULIO Loperamide HCl (Loperamide 2 Mg Capsule) 2 mg PO PRN PRN PRN Reason: Diarrhea Last Admin: 05/19/21 11:54 Dose: 2 mg Documented by: CARMEN Magnesium Chloride (Magnesium Chloride 64 Mg Tablet) 128 mg PO NOW ONE Stop: 05/18/21 10:49 Last Admin: 05/18/21 12:25 Dose: 128 mg Documented by: DEEPTI Magnesium Chloride (Magnesium Chloride 64 Mg Tablet) 128 mg PO NOW ONE Stop: 05/19/21 07:37 Last Admin: 05/19/21 09:15 Dose: 128 mg Documented by: CARMEN Methylprednisolone (Methylprednisolone 125 Mg/2 Ml Vial) 125 mg IV NOW ONE Stop: 05/16/21 15:01 Last Admin: 05/16/21 15:37 Dose: 125 mg Documented by: FAROOQ Methylprednisolone (Methylprednisolone 125 Mg/2 Ml Vial) 60 mg IV Q8H [facility] Last Admin: 05/19/21 09:15 Dose: 60 mg Documented by: Admin: 05/19/21 01:35 Dose: 60 mg Documented by: Admin: 05/18/21 21:57 Dose: Not Given Documented by: Admin: 05/18/21 09:34 Dose: 60 mg Documented by: Admin: 05/18/21 01:32 Dose: 60 mg Documented by: Admin: 05/17/21 18:13 Dose: 60 mg Documented by: Admin: 05/17/21 09:43 Dose: 60 mg Documented by: Admin: 05/17/21 02:36 Dose: 60 mg Documented by: Admin: 05/16/21 20:51 Dose: 60 mg Documented by: ZARINA Methylprednisolone (Methylprednisolone 125 Mg/2 Ml Vial) 60 mg IV Q12H [facility] Metronidazole (Metronidazole 500 Mg Tablet) 500 mg PO TID [facility] Admin: 05/19/21 16:01 Dose: 500 mg Documented by: Admin: 05/19/21 08:58 Dose: 500 mg Documented by: Admin: 05/18/21 20:07 Dose: 500 mg Documented by: Admin: 05/18/21 14:51 Dose: 500 mg Documented by: Admin: 05/18/21 09:35 Dose: 500 mg Documented by: Admin: 05/17/21 21:10 Dose: 500 mg Documented by: Admin: 05/17/21 14:55 Dose: 500 mg Documented by: Admin: 05/17/21 09:40 Dose: 500 mg Documented by: Admin: 05/16/21 20:52 Dose: 500 mg Documented by: ZARINA Morphine Sulfate (Morphine 2 Mg/Ml Inj) 2 mg IV Q4HR PRN PRN Reason: Pain, Moderate (4-6) Naloxone HCl (Naloxone 0.4 Mg/Ml Vial) 0.2 mg IV Q2MIN PRN PRN Reason: Opiate Reversal Ondansetron HCl (Ondansetron 4 Mg/2 Ml Inj) 4 mg IV Q8HR PRN PRN Reason: Nausea And Vomiting Sennosides (Sennosides 8.6 Mg Tablet) 17.2 mg PO BEDTIME [facility] Admin: 05/19/21 22:01 Dose: 17.2 mg Documented by: Admin: 05/18/21 20:07 Dose: 17.2 mg Documented by: Admin: 05/17/21 21:10 Dose: Not Given Documented by: Admin: 05/16/21 21:54 Dose: Not Given Documented by: ZARINA Sodium Chloride (Sodium Chloride 0.9% Flush) 10 ml IV PRN PRN PRN Reason: Flush Sodium Chloride (Sodium Chloride 0.9% Flush) 10 ml IV BID [facility] Admin: 05/20/21 10:08 Dose: 10 ml Documented by: CHARLIE Sucralfate (Sucralfate 1 Gm Tablet) 1 gm PO ACHS [facility] Admin: 05/19/21 08:54 Dose: 1 gm Documented by: Admin: 05/18/21 20:07 Dose: 1 gm Documented by: Admin: 05/18/21 17:26 Dose: 1 gm Documented by: Admin: 05/18/21 12:25 Dose: 1 gm Documented by: Admin: 05/18/21 06:22 Dose: 1 gm Documented by: Admin: 05/17/21 21:10 Dose: 1 gm Documented by: Admin: 05/17/21 16:56 Dose: 1 gm Documented by: Admin: 05/17/21 11:53 Dose: 1 gm Documented by: Admin: 05/17/21 07:10 Dose: 1 gm Documented by: Admin: 05/16/21 20:53 Dose: 1 gm Documented by: ZARINA Vitamin D (Cholecalciferol (Vitamin D3) 1,000 Unit Tablet) 2,000 unit PO DAILY [facility] Admin: 05/20/21 10:06 Dose: 2,000 unit Documented by: Admin: 05/19/21 08:57 Dose: 2,000 unit Documented by: Admin: 05/18/21 09:35 Dose: 2,000 unit Documented by: Admin: 05/17/21 09:40 Dose: 2,000 unit Documented by: DEEPTI Vital Signs Vital signs: Vital Signs - 8 hr 05/16/21 13:03 05/16/21 13:13 05/16/21 13:16 Temperature 98.3 F Pulse Rate 123 H 68 Respiratory Rate 21 Blood Pressure 134/93 H 140/70 Pulse Oximetry 85 L 80 L 91 05/16/21 13:30 05/16/21 14:00 05/16/21 14:30 Temperature Pulse Rate 121 H 112 H 106 H Respiratory Rate Blood Pressure 136/62 139/61 124/56 L Pulse Oximetry 90 L 98 98 05/16/21 15:00 05/16/21 15:25 05/16/21 15:30 Temperature Pulse Rate 104 H 104 H 104 H Respiratory Rate 29 H 27 H 31 H Blood Pressure 129/58 L 130/63 Pulse Oximetry 99 97 05/16/21 16:00 05/16/21 16:30 05/16/21 17:04 Temperature Pulse Rate 107 H 102 H 98 H Respiratory Rate 28 H 29 H 25 H Blood Pressure 133/57 L 116/56 L 133/62 Pulse Oximetry 95 99 99 05/16/21 17:30 Temperature Pulse Rate 95 H Respiratory Rate 24 Blood Pressure Pulse Oximetry 100 MDM - SOB/Dyspnea <Arsen Aparicio DO - Last Filed: 05/23/21 04:56> Lab Data Result diagrams: 05/19/21 05:26 05/19/21 05:26 Labs: Lab Results 05/16/21 05/16/21 05/16/21 Range/Units 13:08 13:20 13:20 WBC 19.0 H (4.5-11.0) X10^3/uL RBC 3.97 L (4.0-5.2) X10^6/uL Hgb 14.0 (12.0-16.0) g/dL Hct 41.4 (36-46) % MCV 104.2 H (80-100) fL MCH 35.2 H (26-34) PG MCHC 33.8 (30-36) % RDW 14.3 (11.6-14.8) % Plt Count 299 (150-400) X10^3/uL Neut % (Auto) 66.8 (50-75) % Lymph % (Auto) 30.4 (25-40) % Swift % (Auto) 2.7 L (3-14) % Eos % (Auto) 0.0 L (2-4) % Baso % (Auto) 0.1 (0-2) % Neut # (Auto) 28979 H (0604-1179) /uL Lymph # (Auto) 5800 H (7271-3093) /uL Swift # (Auto) 500 (0-900) /uL Eos # (Auto) 0 (0-450) /uL Baso # (Auto) 0 (0-100) /uL D-Dimer (<230) ng/mL ABG pH (7.35-7.45) ABG pCO2 (35-45) mmHg ABG pO2 (80-100) mmHg ABG HCO3 (22-26) mmol/L ABG Total CO2 (21-31) mmol/L ABG O2 Saturation (95-100) % ABG Base Excess (-2-2) mmol/L FiO2 Sodium 139 (137-145) mmol/L Potassium 4.2 (3.4-5.1) mmol/L Chloride 102 (98-107) mmol/L Carbon Dioxide 28 (22-32) mmol/L BUN 23 H (7-17) mg/dL Creatinine 0.51 L (0.52-1.04) mg/dL Estimated GFR > 60.0 (>60) mL/min BUN/Creatinine Ratio 45.1 H (6-22) Glucose 162 H (80-110) mg/dL Lactate (0.7-2.1) mmol/L Calcium 10.3 H (8.4-10.2) mg/dL Total Bilirubin 0.9 (0.2-1.3) mg/dL AST 112 H (14-36) IU/L ALT 76 H (<35) IU/L Alkaline Phosphatase 177 H (38-126) U/L Total Creatine Kinase (30-135) U/L CK-MB (CK-2) CK-MB (CK-2) Rel Index Troponin I (0.01-0.034) ng/mL NT-Pro-B Natriuret Pep (<450) pg/mL Total Protein 8.7 H (6.3-8.2) g/dL Albumin 4.3 (3.5-5.0) g/dL Globulin 4.4 H (1.7-4.1) g/dL Albumin/Globulin Ratio 1.0 (1.0-2.8) Procalcitonin (<0.5) ng/mL Chlamy pneumoniae PCR (Not Detect) Adenovirus (PCR) (Not Detect) B. pertussis DNA (PCR) (Not Detecte) B.parapertussis DNA PCR (Not Detecte) Coronavirus OC43 (PCR) (Not Detect) Coronavirus HKU1 (PCR) (Not Detect) Coronavirus 229E (PCR) (Not Detect) SARS-CoV-2 (PCR) Negative (Negative) Coronavirus NL63 (PCR) (Not Detect) Human Metapneumovir PCR (Not Detect) Influenza Type A (PCR) (Not Detect) Influenza Type B (PCR) (Not Detect) M. pneumoniae (PCR) (Not Detect) Parainfluenza 1 (PCR) (Not Detect) Parainfluenza 2 (PCR) (Not Detect) Parainfluenza 3 (PCR) (Not Detect) Parainfluenza 4 (PCR) (Not Detect) RSV (PCR) (Not Detect) Entero/Rhino (PCR) (Not Detect) 05/16/21 05/16/21 05/16/21 Range/Units 13:20 13:20 13:20 WBC (4.5-11.0) X10^3/uL RBC (4.0-5.2) X10^6/uL Hgb (12.0-16.0) g/dL Hct (36-46) % MCV (80-100) fL MCH (26-34) PG MCHC (30-36) % RDW (11.6-14.8) % Plt Count (150-400) X10^3/uL Neut % (Auto) (50-75) % Lymph % (Auto) (25-40) % Swift % (Auto) (3-14) % Eos % (Auto) (2-4) % Baso % (Auto) (0-2) % Neut # (Auto) (0902-7127) /uL Lymph # (Auto) (3755-9876) /uL Swift # (Auto) (0-900) /uL Eos # (Auto) (0-450) /uL Baso # (Auto) (0-100) /uL D-Dimer (<230) ng/mL ABG pH (7.35-7.45) ABG pCO2 (35-45) mmHg ABG pO2 (80-100) mmHg ABG HCO3 (22-26) mmol/L ABG Total CO2 (21-31) mmol/L ABG O2 Saturation (95-100) % ABG Base Excess (-2-2) mmol/L FiO2 Sodium (137-145) mmol/L Potassium (3.4-5.1) mmol/L Chloride (98-107) mmol/L Carbon Dioxide (22-32) mmol/L BUN (7-17) mg/dL Creatinine (0.52-1.04) mg/dL Estimated GFR (>60) mL/min BUN/Creatinine Ratio (6-22) Glucose (80-110) mg/dL Lactate 2.1 (0.7-2.1) mmol/L Calcium (8.4-10.2) mg/dL Total Bilirubin (0.2-1.3) mg/dL AST (14-36) IU/L ALT (<35) IU/L Alkaline Phosphatase (38-126) U/L Total Creatine Kinase 42 (30-135) U/L CK-MB (CK-2) TNP CK-MB (CK-2) Rel Index TNP Troponin I < 0.012 (0.01-0.034) ng/mL NT-Pro-B Natriuret Pep 417 (<450) pg/mL Total Protein (6.3-8.2) g/dL Albumin (3.5-5.0) g/dL Globulin (1.7-4.1) g/dL Albumin/Globulin Ratio (1.0-2.8) Procalcitonin 0.18 (<0.5) ng/mL Chlamy pneumoniae PCR (Not Detect) Adenovirus (PCR) (Not Detect) B. pertussis DNA (PCR) (Not Detecte) B.parapertussis DNA PCR (Not Detecte) Coronavirus OC43 (PCR) (Not Detect) Coronavirus HKU1 (PCR) (Not Detect) Coronavirus 229E (PCR) (Not Detect) SARS-CoV-2 (PCR) (Negative) Coronavirus NL63 (PCR) (Not Detect) Human Metapneumovir PCR (Not Detect) Influenza Type A (PCR) (Not Detect) Influenza Type B (PCR) (Not Detect) M. pneumoniae (PCR) (Not Detect) Parainfluenza 1 (PCR) (Not Detect) Parainfluenza 2 (PCR) (Not Detect) Parainfluenza 3 (PCR) (Not Detect) Parainfluenza 4 (PCR) (Not Detect) RSV (PCR) (Not Detect) Entero/Rhino (PCR) (Not Detect) 05/16/21 05/16/21 05/16/21 Range/Units 13:20 13:40 14:53 WBC (4.5-11.0) X10^3/uL RBC (4.0-5.2) X10^6/uL Hgb (12.0-16.0) g/dL Hct (36-46) % MCV (80-100) fL MCH (26-34) PG MCHC (30-36) % RDW (11.6-14.8) % Plt Count (150-400) X10^3/uL Neut % (Auto) (50-75) % Lymph % (Auto) (25-40) % Swift % (Auto) (3-14) % Eos % (Auto) (2-4) % Baso % (Auto) (0-2) % Neut # (Auto) (3949-1410) /uL Lymph # (Auto) (4816-4737) /uL Swift # (Auto) (0-900) /uL Eos # (Auto) (0-450) /uL Baso # (Auto) (0-100) /uL D-Dimer 2588 H (<230) ng/mL ABG pH 7.40 (7.35-7.45) ABG pCO2 44.5 (35-45) mmHg ABG pO2 56 L (80-100) mmHg ABG HCO3 28 H (22-26) mmol/L ABG Total CO2 29 (21-31) mmol/L ABG O2 Saturation 89 L (95-100) % ABG Base Excess 3.0 H (-2-2) mmol/L FiO2 21 Sodium (137-145) mmol/L Potassium (3.4-5.1) mmol/L Chloride (98-107) mmol/L Carbon Dioxide (22-32) mmol/L BUN (7-17) mg/dL Creatinine (0.52-1.04) mg/dL Estimated GFR (>60) mL/min BUN/Creatinine Ratio (6-22) Glucose (80-110) mg/dL Lactate (0.7-2.1) mmol/L Calcium (8.4-10.2) mg/dL Total Bilirubin (0.2-1.3) mg/dL AST (14-36) IU/L ALT (<35) IU/L Alkaline Phosphatase (38-126) U/L Total Creatine Kinase (30-135) U/L CK-MB (CK-2) CK-MB (CK-2) Rel Index Troponin I (0.01-0.034) ng/mL NT-Pro-B Natriuret Pep (<450) pg/mL Total Protein (6.3-8.2) g/dL Albumin (3.5-5.0) g/dL Globulin (1.7-4.1) g/dL Albumin/Globulin Ratio (1.0-2.8) Procalcitonin (<0.5) ng/mL Chlamy pneumoniae PCR Not detected (Not Detect) Adenovirus (PCR) Not detected (Not Detect) B. pertussis DNA (PCR) Not detected (Not Detecte) B.parapertussis DNA PCR Not detected (Not Detecte) Coronavirus OC43 (PCR) Not detected (Not Detect) Coronavirus HKU1 (PCR) Not detected (Not Detect) Coronavirus 229E (PCR) Not detected (Not Detect) SARS-CoV-2 (PCR) Not detected (Negative) Coronavirus NL63 (PCR) Not detected (Not Detect) Human Metapneumovir PCR Not detected (Not Detect) Influenza Type A (PCR) Not detected (Not Detect) Influenza Type B (PCR) Not detected (Not Detect) M. pneumoniae (PCR) Not detected (Not Detect) Parainfluenza 1 (PCR) Not detected (Not Detect) Parainfluenza 2 (PCR) Not detected (Not Detect) Parainfluenza 3 (PCR) Not detected (Not Detect) Parainfluenza 4 (PCR) Not detected (Not Detect) RSV (PCR) Not detected (Not Detect) Entero/Rhino (PCR) Not detected (Not Detect) 05/16/21 Range/Units 15:44 WBC (4.5-11.0) X10^3/uL RBC (4.0-5.2) X10^6/uL Hgb (12.0-16.0) g/dL Hct (36-46) % MCV (80-100) fL MCH (26-34) PG MCHC (30-36) % RDW (11.6-14.8) % Plt Count (150-400) X10^3/uL Neut % (Auto) (50-75) % Lymph % (Auto) (25-40) % Swift % (Auto) (3-14) % Eos % (Auto) (2-4) % Baso % (Auto) (0-2) % Neut # (Auto) (0573-7697) /uL Lymph # (Auto) (1456-8751) /uL Swift # (Auto) (0-900) /uL Eos # (Auto) (0-450) /uL Baso # (Auto) (0-100) /uL D-Dimer (<230) ng/mL ABG pH (7.35-7.45) ABG pCO2 (35-45) mmHg ABG pO2 (80-100) mmHg ABG HCO3 (22-26) mmol/L ABG Total CO2 (21-31) mmol/L ABG O2 Saturation (95-100) % ABG Base Excess (-2-2) mmol/L FiO2 Sodium (137-145) mmol/L Potassium (3.4-5.1) mmol/L Chloride (98-107) mmol/L Carbon Dioxide (22-32) mmol/L BUN (7-17) mg/dL Creatinine (0.52-1.04) mg/dL Estimated GFR (>60) mL/min BUN/Creatinine Ratio (6-22) Glucose (80-110) mg/dL Lactate 1.3 (0.7-2.1) mmol/L Calcium (8.4-10.2) mg/dL Total Bilirubin (0.2-1.3) mg/dL AST (14-36) IU/L ALT (<35) IU/L Alkaline Phosphatase (38-126) U/L Total Creatine Kinase (30-135) U/L CK-MB (CK-2) CK-MB (CK-2) Rel Index Troponin I (0.01-0.034) ng/mL NT-Pro-B Natriuret Pep (<450) pg/mL Total Protein (6.3-8.2) g/dL Albumin (3.5-5.0) g/dL Globulin (1.7-4.1) g/dL Albumin/Globulin Ratio (1.0-2.8) Procalcitonin (<0.5) ng/mL Chlamy pneumoniae PCR (Not Detect) Adenovirus (PCR) (Not Detect) B. pertussis DNA (PCR) (Not Detecte) B.parapertussis DNA PCR (Not Detecte) Coronavirus OC43 (PCR) (Not Detect) Coronavirus HKU1 (PCR) (Not Detect) Coronavirus 229E (PCR) (Not Detect) SARS-CoV-2 (PCR) (Negative) Coronavirus NL63 (PCR) (Not Detect) Human Metapneumovir PCR (Not Detect) Influenza Type A (PCR) (Not Detect) Influenza Type B (PCR) (Not Detect) M. pneumoniae (PCR) (Not Detect) Parainfluenza 1 (PCR) (Not Detect) Parainfluenza 2 (PCR) (Not Detect) Parainfluenza 3 (PCR) (Not Detect) Parainfluenza 4 (PCR) (Not Detect) RSV (PCR) (Not Detect) Entero/Rhino (PCR) (Not Detect) Imaging Data Chest x-ray: My Impression: RLL Pneumonia Radiologist's Impression: [address] [address] XRay Report Signed Patient: Francisca Rdz MR#: [id number] : 1940 Acct:[id number] Age/Sex: 80 / F Date of Service: 05/16/21 Loc: ED Accession Number: [id number] ?? Procedure: XR chest 1V Ordering Provider: Jose G Flores MD PROCEDURE:? XR CHEST 1V ? INDICATIONS:? shortness of breath ? TECHNIQUE:? One view of the chest was acquired.? ? COMPARISON:? [facility], CR, XR CHEST 1V, 09/16/2019, 9:01. ? FINDINGS:? ? Surgical changes and devices:? None.? ? Lungs and pleura:? Increased right basilar opacity and blunting of the costophrenic angle.? No pneumothorax.? ? Mediastinum:? Mediastinal contours appear normal.? Heart size is normal.? ? Bones and chest wall:? No suspicious bony lesions.? Overlying soft tissues appear unremarkable.? ? IMPRESSION:? Mild right effusion with superimposed consolidation consistent with pneumonia. ? ? Dictated by: Brook Mark M.D. on 05/16/2021 at 14:03 ? ? Approved by: Brook Mark M.D. on 05/16/2021 at 14:18 ? <Jose G Flores MD - Last Filed: 05/16/21 18:20> Lab Data Labs: Lab Results 05/16/21 05/16/21 05/16/21 Range/Units 13:08 13:20 13:20 WBC 19.0 H (4.5-11.0) X10^3/uL RBC 3.97 L (4.0-5.2) X10^6/uL Hgb 14.0 (12.0-16.0) g/dL Hct 41.4 (36-46) % MCV 104.2 H (80-100) fL MCH 35.2 H (26-34) PG MCHC 33.8 (30-36) % RDW 14.3 (11.6-14.8) % Plt Count 299 (150-400) X10^3/uL Neut % (Auto) 66.8 (50-75) % Lymph % (Auto) 30.4 (25-40) % Swift % (Auto) 2.7 L (3-14) % Eos % (Auto) 0.0 L (2-4) % Baso % (Auto) 0.1 (0-2) % Neut # (Auto) 80627 H (6741-7415) /uL Lymph # (Auto) 5800 H (3511-1023) /uL Swift # (Auto) 500 (0-900) /uL Eos # (Auto) 0 (0-450) /uL Baso # (Auto) 0 (0-100) /uL D-Dimer (<230) ng/mL ABG pH (7.35-7.45) ABG pCO2 (35-45) mmHg ABG pO2 (80-100) mmHg ABG HCO3 (22-26) mmol/L ABG Total CO2 (21-31) mmol/L ABG O2 Saturation (95-100) % ABG Base Excess (-2-2) mmol/L FiO2 Sodium 139 (137-145) mmol/L Potassium 4.2 (3.4-5.1) mmol/L Chloride 102 (98-107) mmol/L Carbon Dioxide 28 (22-32) mmol/L BUN 23 H (7-17) mg/dL Creatinine 0.51 L (0.52-1.04) mg/dL Estimated GFR > 60.0 (>60) mL/min BUN/Creatinine Ratio 45.1 H (6-22) Glucose 162 H (80-110) mg/dL Lactate (0.7-2.1) mmol/L Calcium 10.3 H (8.4-10.2) mg/dL Total Bilirubin 0.9 (0.2-1.3) mg/dL AST 112 H (14-36) IU/L ALT 76 H (<35) IU/L Alkaline Phosphatase 177 H (38-126) U/L Total Creatine Kinase (30-135) U/L CK-MB (CK-2) CK-MB (CK-2) Rel Index Troponin I (0.01-0.034) ng/mL NT-Pro-B Natriuret Pep (<450) pg/mL Total Protein 8.7 H (6.3-8.2) g/dL Albumin 4.3 (3.5-5.0) g/dL Globulin 4.4 H (1.7-4.1) g/dL Albumin/Globulin Ratio 1.0 (1.0-2.8) Procalcitonin (<0.5) ng/mL Chlamy pneumoniae PCR (Not Detect) Adenovirus (PCR) (Not Detect) B. pertussis DNA (PCR) (Not Detecte) B.parapertussis DNA PCR (Not Detecte) Coronavirus OC43 (PCR) (Not Detect) Coronavirus HKU1 (PCR) (Not Detect) Coronavirus 229E (PCR) (Not Detect) SARS-CoV-2 (PCR) Negative (Negative) Coronavirus NL63 (PCR) (Not Detect) Human Metapneumovir PCR (Not Detect) Influenza Type A (PCR) (Not Detect) Influenza Type B (PCR) (Not Detect) M. pneumoniae (PCR) (Not Detect) Parainfluenza 1 (PCR) (Not Detect) Parainfluenza 2 (PCR) (Not Detect) Parainfluenza 3 (PCR) (Not Detect) Parainfluenza 4 (PCR) (Not Detect) RSV (PCR) (Not Detect) Entero/Rhino (PCR) (Not Detect) 05/16/21 05/16/21 05/16/21 Range/Units 13:20 13:20 13:20 WBC (4.5-11.0) X10^3/uL RBC (4.0-5.2) X10^6/uL Hgb (12.0-16.0) g/dL Hct (36-46) % MCV (80-100) fL MCH (26-34) PG MCHC (30-36) % RDW (11.6-14.8) % Plt Count (150-400) X10^3/uL Neut % (Auto) (50-75) % Lymph % (Auto) (25-40) % Swift % (Auto) (3-14) % Eos % (Auto) (2-4) % Baso % (Auto) (0-2) % Neut # (Auto) (4058-2110) /uL Lymph # (Auto) (1647-6738) /uL Swift # (Auto) (0-900) /uL Eos # (Auto) (0-450) /uL Baso # (Auto) (0-100) /uL D-Dimer (<230) ng/mL ABG pH (7.35-7.45) ABG pCO2 (35-45) mmHg ABG pO2 (80-100) mmHg ABG HCO3 (22-26) mmol/L ABG Total CO2 (21-31) mmol/L ABG O2 Saturation (95-100) % ABG Base Excess (-2-2) mmol/L FiO2 Sodium (137-145) mmol/L Potassium (3.4-5.1) mmol/L Chloride (98-107) mmol/L Carbon Dioxide (22-32) mmol/L BUN (7-17) mg/dL Creatinine (0.52-1.04) mg/dL Estimated GFR (>60) mL/min BUN/Creatinine Ratio (6-22) Glucose (80-110) mg/dL Lactate 2.1 (0.7-2.1) mmol/L Calcium (8.4-10.2) mg/dL Total Bilirubin (0.2-1.3) mg/dL AST (14-36) IU/L ALT (<35) IU/L Alkaline Phosphatase (38-126) U/L Total Creatine Kinase 42 (30-135) U/L CK-MB (CK-2) TNP CK-MB (CK-2) Rel Index TNP Troponin I < 0.012 (0.01-0.034) ng/mL NT-Pro-B Natriuret Pep 417 (<450) pg/mL Total Protein (6.3-8.2) g/dL Albumin (3.5-5.0) g/dL Globulin (1.7-4.1) g/dL Albumin/Globulin Ratio (1.0-2.8) Procalcitonin 0.18 (<0.5) ng/mL Chlamy pneumoniae PCR (Not Detect) Adenovirus (PCR) (Not Detect) B. pertussis DNA (PCR) (Not Detecte) B.parapertussis DNA PCR (Not Detecte) Coronavirus OC43 (PCR) (Not Detect) Coronavirus HKU1 (PCR) (Not Detect) Coronavirus 229E (PCR) (Not Detect) SARS-CoV-2 (PCR) (Negative) Coronavirus NL63 (PCR) (Not Detect) Human Metapneumovir PCR (Not Detect) Influenza Type A (PCR) (Not Detect) Influenza Type B (PCR) (Not Detect) M. pneumoniae (PCR) (Not Detect) Parainfluenza 1 (PCR) (Not Detect) Parainfluenza 2 (PCR) (Not Detect) Parainfluenza 3 (PCR) (Not Detect) Parainfluenza 4 (PCR) (Not Detect) RSV (PCR) (Not Detect) Entero/Rhino (PCR) (Not Detect) 05/16/21 05/16/21 05/16/21 Range/Units 13:20 13:40 14:53 WBC (4.5-11.0) X10^3/uL RBC (4.0-5.2) X10^6/uL Hgb (12.0-16.0) g/dL Hct (36-46) % MCV (80-100) fL MCH (26-34) PG MCHC (30-36) % RDW (11.6-14.8) % Plt Count (150-400) X10^3/uL Neut % (Auto) (50-75) % Lymph % (Auto) (25-40) % Swift % (Auto) (3-14) % Eos % (Auto) (2-4) % Baso % (Auto) (0-2) % Neut # (Auto) (4129-7833) /uL Lymph # (Auto) (9272-0250) /uL Swift # (Auto) (0-900) /uL Eos # (Auto) (0-450) /uL Baso # (Auto) (0-100) /uL D-Dimer 2588 H (<230) ng/mL ABG pH 7.40 (7.35-7.45) ABG pCO2 44.5 (35-45) mmHg ABG pO2 56 L (80-100) mmHg ABG HCO3 28 H (22-26) mmol/L ABG Total CO2 29 (21-31) mmol/L ABG O2 Saturation 89 L (95-100) % ABG Base Excess 3.0 H (-2-2) mmol/L FiO2 21 Sodium (137-145) mmol/L Potassium (3.4-5.1) mmol/L Chloride (98-107) mmol/L Carbon Dioxide (22-32) mmol/L BUN (7-17) mg/dL Creatinine (0.52-1.04) mg/dL Estimated GFR (>60) mL/min BUN/Creatinine Ratio (6-22) Glucose (80-110) mg/dL Lactate (0.7-2.1) mmol/L Calcium (8.4-10.2) mg/dL Total Bilirubin (0.2-1.3) mg/dL AST (14-36) IU/L ALT (<35) IU/L Alkaline Phosphatase (38-126) U/L Total Creatine Kinase (30-135) U/L CK-MB (CK-2) CK-MB (CK-2) Rel Index Troponin I (0.01-0.034) ng/mL NT-Pro-B Natriuret Pep (<450) pg/mL Total Protein (6.3-8.2) g/dL Albumin (3.5-5.0) g/dL Globulin (1.7-4.1) g/dL Albumin/Globulin Ratio (1.0-2.8) Procalcitonin (<0.5) ng/mL Chlamy pneumoniae PCR Not detected (Not Detect) Adenovirus (PCR) Not detected (Not Detect) B. pertussis DNA (PCR) Not detected (Not Detecte) B.parapertussis DNA PCR Not detected (Not Detecte) Coronavirus OC43 (PCR) Not detected (Not Detect) Coronavirus HKU1 (PCR) Not detected (Not Detect) Coronavirus 229E (PCR) Not detected (Not Detect) SARS-CoV-2 (PCR) Not detected (Negative) Coronavirus NL63 (PCR) Not detected (Not Detect) Human Metapneumovir PCR Not detected (Not Detect) Influenza Type A (PCR) Not detected (Not Detect) Influenza Type B (PCR) Not detected (Not Detect) M. pneumoniae (PCR) Not detected (Not Detect) Parainfluenza 1 (PCR) Not detected (Not Detect) Parainfluenza 2 (PCR) Not detected (Not Detect) Parainfluenza 3 (PCR) Not detected (Not Detect) Parainfluenza 4 (PCR) Not detected (Not Detect) RSV (PCR) Not detected (Not Detect) Entero/Rhino (PCR) Not detected (Not Detect) 05/16/21 Range/Units 15:44 WBC (4.5-11.0) X10^3/uL RBC (4.0-5.2) X10^6/uL Hgb (12.0-16.0) g/dL Hct (36-46) % MCV (80-100) fL MCH (26-34) PG MCHC (30-36) % RDW (11.6-14.8) % Plt Count (150-400) X10^3/uL Neut % (Auto) (50-75) % Lymph % (Auto) (25-40) % Swift % (Auto) (3-14) % Eos % (Auto) (2-4) % Baso % (Auto) (0-2) % Neut # (Auto) (8297-4671) /uL Lymph # (Auto) (9336-5877) /uL Swift # (Auto) (0-900) /uL Eos # (Auto) (0-450) /uL Baso # (Auto) (0-100) /uL D-Dimer (<230) ng/mL ABG pH (7.35-7.45) ABG pCO2 (35-45) mmHg ABG pO2 (80-100) mmHg ABG HCO3 (22-26) mmol/L ABG Total CO2 (21-31) mmol/L ABG O2 Saturation (95-100) % ABG Base Excess (-2-2) mmol/L FiO2 Sodium (137-145) mmol/L Potassium (3.4-5.1) mmol/L Chloride (98-107) mmol/L Carbon Dioxide (22-32) mmol/L BUN (7-17) mg/dL Creatinine (0.52-1.04) mg/dL Estimated GFR (>60) mL/min BUN/Creatinine Ratio (6-22) Glucose (80-110) mg/dL Lactate 1.3 (0.7-2.1) mmol/L Calcium (8.4-10.2) mg/dL Total Bilirubin (0.2-1.3) mg/dL AST (14-36) IU/L ALT (<35) IU/L Alkaline Phosphatase (38-126) U/L Total Creatine Kinase (30-135) U/L CK-MB (CK-2) CK-MB (CK-2) Rel Index Troponin I (0.01-0.034) ng/mL NT-Pro-B Natriuret Pep (<450) pg/mL Total Protein (6.3-8.2) g/dL Albumin (3.5-5.0) g/dL Globulin (1.7-4.1) g/dL Albumin/Globulin Ratio (1.0-2.8) Procalcitonin (<0.5) ng/mL Chlamy pneumoniae PCR (Not Detect) Adenovirus (PCR) (Not Detect) B. pertussis DNA (PCR) (Not Detecte) B.parapertussis DNA PCR (Not Detecte) Coronavirus OC43 (PCR) (Not Detect) Coronavirus HKU1 (PCR) (Not Detect) Coronavirus 229E (PCR) (Not Detect) SARS-CoV-2 (PCR) (Negative) Coronavirus NL63 (PCR) (Not Detect) Human Metapneumovir PCR (Not Detect) Influenza Type A (PCR) (Not Detect) Influenza Type B (PCR) (Not Detect) M. pneumoniae (PCR) (Not Detect) Parainfluenza 1 (PCR) (Not Detect) Parainfluenza 2 (PCR) (Not Detect) Parainfluenza 3 (PCR) (Not Detect) Parainfluenza 4 (PCR) (Not Detect) RSV (PCR) (Not Detect) Entero/Rhino (PCR) (Not Detect) Imaging Data CT scan - chest: Radiologist's Impression: [place] [address] CT Scan Report Signed Patient: Francisca Rdz MR#: [id number] : 1940 Acct:[id number] Age/Sex: 80 / F Date of Service: 05/16/21 Loc: Accession Number: [id number] ?? Procedure: CT angio chest PE protocol Ordering Provider: Arsen Aparicio D.O. PROCEDURE:? CT ANGIO CHEST PE PROTOCOL ? INDICATIONS:? fever, cough, hypoxemic respiratory failure ? TECHNIQUE:? After the administration of intravenous contrast, 2 mm thick sections acquired from the pulmonary apices to the posterior costophrenic angles.? 3-dimensional maximum intensity projection (MIP) coronal and sagittal reformats were then acquired through the thorax.? For radiation dose reduction, the following was used:? automated exposure control, adjustment of mA and/or kV according to patient size.? ? COMPARISON:? [facility], CR, XR CHEST 1V, 05/16/2021, 13:38.? [facility], CR, XR CHEST 1V, 09/16/2019, 9:01. ? FINDINGS:? Image quality:? Excellent.? ? Pulmonary arteries:? Pulmonary arteries are normal in size, and demonstrate no intraluminal filling defects to suggest central pulmonary embolism.? ? Lungs and pleura:? Moderate emphysematous change.? Micro nodular opacity most pronounced in the dependent portions of the lung.? Nodular opacity along the right minor fissure, (5/191).? Right lower lobe pulmonary nodule measuring 1 cm, (5/232).? Patchy consolidation at the right lung base.? Several areas of distal mucus airway plugging.? No pleural effusions or pneumothorax.? Bronchial wall thickening.? ? Mediastinum:? Heart size is normal, without pericardial effusion.? Fullness in the right hilar region, (4/81).? Thoracic aorta is normal in caliber and enhancement.? Esophagus is normal in caliber, without hiatal hernia.? ? Bones and chest wall:? No suspicious bony lesions.? Mild scoliosis.? Prior right-sided rib fractures.? Advanced degenerative change in the lower cervical spine.? Multilevel DDD.? Pectus excavatum.? Thyroid gland is unremarkable.? No axillary or supraclavicular adenopathy.? ? Abdomen:? Left adrenal nodule measuring approximately 3 cm.? This is not well evaluated due to beam hardening artifact.? Simple appearing left renal cyst.? Small left kidney stone.? Small hepatic cysts.? ? IMPRESSION:? 1. No pulmonary embolism. ? 2. Scattered consolidations at the lung bases.? This is highly suspicious for pneumonia.? Distal mucus airway plugging and bronchial wall thickening suggesting bronchitis. ? 3. Nodular opacity or pulmonary nodule in the right upper lobe.? Additional pulmonary nodule in the right lower lobe measuring 1 cm.? These are indeterminate for malignancy.? Moderate emphysematous change.? -Recommend short-term follow-up CT chest.? This could also be further evaluated with PET/CT. ? 4. Possible lymph node in the right hilar region.? ? 5. Left adrenal nodule measuring approximately 3 cm. This is not well evaluated on this exam.? -Recommend adrenal washout protocol CT for further evaluation.? ? 6. Nonobstructing left kidney stone.? ? Dictated by: Ahsan Velásquez M.D. on 05/16/2021 at 15:37 ? ? Approved by: Ahsan Velásquez M.D. on 05/16/2021 at 15:56?? ECG Data Attestation: I personally reviewed and interpreted this ECG as follows: ( sinus tachycardia rate 123 beats per minute. LAD. Significant motion artifact. No other determinations could be made.) <Jose G Flores MD - Last Filed: 05/16/21 18:20> Critical Care Time Critical Care Time: Yes Total Critical Care Time: 45 Attestation: Critical care time concluded initial patient assessment and clinical care. Time included review of past medical records, review of x-ray, EKG and lab data. Continue clinical decisions were necessary. The situation discussed with the patient. The situation was discussed with the admitting physician. Discharge Plan Departure Patient Disposition: Admitted As Inpatient Clinical Impression: Acute hypoxemic respiratory failure, Pneumonia, COPD (chronic obstructive pulmonary disease), Pulmonary nodule, Adrenal nodule Admit Date/Time: 05/16/21 17:30 Admit Provider: Maddie Lamar
[2021-05-16 13:29] LABS: COVID19 -Nasal RAPID Negative (Negative)
[2021-05-16 13:31] LABS: Add Manual Diff / Slide Review NO; Basophils Absolute Auto 0 /uL (0-100); Basophils Percent Auto 0.1 % (0-2); Eosinophils Absolute Auto 0 /uL (0-450); Hematocrit 41.4 % (36-46); Lymphocytes Absolute Auto 5800 /uL (1100-4500); Lymphocytes Percent Auto 30.4 % (25-40); Mean Corpuscular HGB Conc 33.8 % (30-36); Mean Corpuscular Hemoglobin 35.2 PG (26-34); Mean Corpuscular Volume 104.2 fL (80-100); Monocytes Absolute Auto 500 /uL (0-900); Monocytes Percent Auto 2.7 % (3-14); Neutrophils Absolute Auto 12700 /uL (1500-7000); Neutrophils Percent Auto 66.8 % (50-75); Platelet Count 299 X10^3/uL (150-400); Red Blood Cell Count 3.97 X10^6/uL (4.0-5.2); Red Cell Distribution Width 14.3 % (11.6-14.8)
[2021-05-16] MEDS: LACTATED RINGERS 539.77 ML IV (13:37)
[2021-05-16 13:53] LABS: Creatine Kinase 42 U/L (30-135); Lactate (Lactic Acid) 2.1 mmol/L (0.7-2.1)
[2021-05-16 13:56] LABS: HCO3 ABG 28 mmol/L (22-26); PCO2 ABG 44.5 mmHg (35-45); TCO2 ABG 29 mmol/L (21-31)
[2021-05-16 13:57] LABS: Fractionated Inspired Oxygen 21; Oxygen Saturation ABG 89 % (95-100); PO2 ABG 56 mmHg (80-100)
[2021-05-16 14:05] LABS: Alanine Aminotransferase 76 IU/L (<35); Albumin 4.3 g/dL (3.5-5.0); Alkaline Phosphatase 177 U/L (38-126); Aspartate Aminotransferase 112 IU/L (14-36); BUN Creatinine Ratio 45.1 (6-22); Bilirubin Total 0.9 mg/dL (0.2-1.3); Blood Urea Nitrogen 23 mg/dL (7-17); Calcium 10.3 mg/dL (8.4-10.2); Carbon Dioxide 28 mmol/L (22-32); Chloride 102 mmol/L (98-107); Estimated Glomerular Filt Rate > 60.0 mL/min (>60); Globulin 4.4 g/dL (1.7-4.1); Glucose 162 mg/dL (80-110); HEMOLYSIS < 15 (0-50); Potassium 4.2 mmol/L (3.4-5.1); Sodium 139 mmol/L (137-145); Total Protein 8.7 g/dL (6.3-8.2); Troponin I < 0.012 ng/mL (0.01-0.034)
[2021-05-16 14:13] LABS: NT-proBNP (BNP-Adult 18+) 417 pg/mL (<450)
[2021-05-16 14:20] LABS: Procalcitonin 0.18 ng/mL (<0.5)
[2021-05-16 14:30] LABS: D Dimer 2588 ng/mL (<230)
--- NOTE | 2021-05-16 14:56 | DI.CT.S_ITS ---
PROCEDURE: CT ANGIO CHEST PE PROTOCOL INDICATIONS: fever, cough, hypoxemic respiratory failure TECHNIQUE: After the administration of intravenous contrast, 2 mm thick sections acquired from the pulmonary apices to the posterior costophrenic angles. 3-dimensional maximum intensity projection (MIP) coronal and sagittal reformats were then acquired through the thorax. For radiation dose reduction, the following was used: automated exposure control, adjustment of mA and/or kV according to patient size. COMPARISON: [facility], CR, XR CHEST 1V, 05/16/2021, 13:38. [facility], CR, XR CHEST 1V, 09/16/2019, 9:01. FINDINGS: Image quality: Excellent. Pulmonary arteries: Pulmonary arteries are normal in size, and demonstrate no intraluminal filling defects to suggest central pulmonary embolism. Lungs and pleura: Moderate emphysematous change. Micro nodular opacity most pronounced in the dependent portions of the lung. Nodular opacity along the right minor fissure, (5/191). Right lower lobe pulmonary nodule measuring 1 cm, (5/232). Patchy consolidation at the right lung base. Several areas of distal mucus airway plugging. No pleural effusions or pneumothorax. Bronchial wall thickening. Mediastinum: Heart size is normal, without pericardial effusion. Fullness in the right hilar region, (4/81). Thoracic aorta is normal in caliber and enhancement. Esophagus is normal in caliber, without hiatal hernia. Bones and chest wall: No suspicious bony lesions. Mild scoliosis. Prior right-sided rib fractures. Advanced degenerative change in the lower cervical spine. Multilevel DDD. Pectus excavatum. Thyroid gland is unremarkable. No axillary or supraclavicular adenopathy. Abdomen: Left adrenal nodule measuring approximately 3 cm. This is not well evaluated due to beam hardening artifact. Simple appearing left renal cyst. Small left kidney stone. Small hepatic cysts. IMPRESSION: 1. No pulmonary embolism. 2. Scattered consolidations at the lung bases. This is highly suspicious for pneumonia. Distal mucus airway plugging and bronchial wall thickening suggesting bronchitis. 3. Nodular opacity or pulmonary nodule in the right upper lobe. Additional pulmonary nodule in the right lower lobe measuring 1 cm. These are indeterminate for malignancy. Moderate emphysematous change. -Recommend short-term follow-up CT chest. This could also be further evaluated with PET/CT. 4. Possible lymph node in the right hilar region. 5. Left adrenal nodule measuring approximately 3 cm. This is not well evaluated on this exam. -Recommend adrenal washout protocol CT for further evaluation. 6. Nonobstructing left kidney stone. Dictated by: Ahsan Velásquez M.D. on 05/16/2021 at 15:37 Approved by: Ahsan Velásquez M.D. on 05/16/2021 at 15:56
[2021-05-16] MEDS: ALBUTEROL/IPRATROPIUM 3 ML AMPUL INH ×2 (15:25→20:26)
[2021-05-16] MEDS: cefTRIAXone 1,000 MG in SODIUM CHLORIDE 0.9% 100 ML 200 ML IV (15:26)
[2021-05-16 15:27] LABS: Reflexed Lactate in 2 Hours Y
[2021-05-16] MEDS: methylPREDNISolone 125 MG/2 ML VIAL IV (15:37)
[2021-05-16 16:03] LABS: Lactate 2HR (Lactic Acid Rflx) 1.3 mmol/L (0.7-2.1)
[2021-05-16] MEDS: AZITHROMYCIN 500 MG in DEXTROSE 5% IN WATER 250 ML IV (16:04)
[2021-05-16 16:53] LABS: Adenovirus Not Detected (Not Detect); B. parapertussis Not Detected (Not Detecte); Bordetella pertussis Not Detected (Not Detecte); Chlamydophila pneumoniae Not Detected (Not Detect); Coronavirus 229E Not Detected (Not Detect); Coronavirus HKU1 Not Detected (Not Detect); Coronavirus NL 63 Not Detected (Not Detect); Coronavirus OC43 Not Detected (Not Detect); Human Metapneumovirus Not Detected (Not Detect); Human Rhinovirus/Enterovirus Not Detected (Not Detect); Influenza A Not Detected (Not Detect); Influenza B Not Detected (Not Detect); Mycoplasma pneumoniae Not Detected (Not Detect); Parainfluenza Virus 1 Not Detected (Not Detect); Parainfluenza Virus 2 Not Detected (Not Detect); Parainfluenza Virus 3 Not Detected (Not Detect); Parainfluenza Virus 4 Not Detected (Not Detect); Respiratory Syncytial Virus Not Detected (Not Detect); SARS- CoV-2 Not Detected (Not Detecte)
--- NOTE | 2021-05-16 17:56 | PM.HP.1 ---
History of Present Illness History of Present Illness Date Patient Seen: 05/16/21 Chief complaint: Flu,Chest Congestion,Cough Narrative: THIS IS A 80-YEAR-OLD FEMALE PAST MEDICAL HISTORY SIGNIFICANT FOR TOBACCO ABUSE, HYPERLIPIDEMIA, OSTEOPOROSIS WHO PRESENTED TO THE HOSPITAL WITH INCREASED SHORTNESS OF BREATH WELL COUGH CONGESTION OVER THE LAST COUPLE OF DAYS. DUE TO THE CURRENT GOING PANDEMIC, SHE WAS TESTED FOR COVID-19 BUT WAS NEGATIVE. SHE STATED THAT SHE IS BEING HAVING THOSE SYMPTOMS FOR LAST FEW DAYS. AND HAD BEEN WORSENING. HE DOES NOT HAVE A HISTORY OF COPD FORMALLY. HOWEVER SHE IS IN [place] AT HOME WAS STARTED BY 1 OF HER OUTPATIENT PROVIDERS. SHE REPORTED INCREASING TEMPERATURE BUT DENIES ANY CHILLS. NO CHEST PAIN. NO CHEST PRESSURE. SHE DENIED ANY SICK CONTACTS. COUGH REPORTED WAS MILDLY PRODUCTIVE. SLIGHTLY YELLOWISH SHE SPUTUM REPORTED. NO BLOOD IN SPUTUM. IN THE ER ON ARRIVAL TO THE ER, INITIAL LABS APPEARED TO SHOW PATIENT IS TO BE HYPOXIC LABS IS SHOWING EVIDENCE OF SIGNIFICANT LEUKOCYTOSIS. A CT SCAN OF THE CHEST AT THIS TIME IS SHOWING BILATERAL PNEUMONIA WITH POSSIBLE NODULES WELL A NONOBSTRUCTING KIDNEY STONE. Patient History Medical History (Updated 05/16/21 @ 16:53 by Jose G Flores MD) COPD (chronic obstructive pulmonary disease) Leukemia Surgical History History of left knee replacement Family & Social History Social History: household members family Safety & Behavioral: Feels Safe in Current Yes Environment Been Physically Hurt or No Threatened By a Person Tobacco & Substance use: Smoking Status Former smoker alcohol intake frequency holiday/special occasion Substance Use Type does not use Meds Home Medications and Allergies Home Medications Medication Instructions Recorded Confirmed Type alendronate 70 mg tablet 70 mg PO WEEKLY 09/16/19 09/16/19 History aspirin 81 mg tablet,delayed 81 mg PO DAILY 09/16/19 09/16/19 History release (Adult Low Dose Aspirin) atorvastatin 20 mg tablet 20 mg PO DAILY 09/16/19 09/16/19 History cholecalciferol (vitamin D3) 2,000 units PO DAILY 09/16/19 09/16/19 History levothyroxine 50 mcg tablet 50 mcg PO DAILY 09/16/19 09/16/19 History mometasone-formoterol HFA 100 100 inh INHALATION BID 09/16/19 09/16/19 History mcg-5 mcg/actuation aerosol inhaler (Dulera) triamterene 37.5 1 cap PO DAILY 09/16/19 09/16/19 History mg-hydrochlorothiazide 25 mg capsule Allergies Allergy/AdvReac Type Severity Reaction Status Date / Time bee venom protein (honey bee) Allergy Severe Anaphylaxis Verified 05/16/21 13:03 lidocaine [From XYLOCAINE] Allergy Severe ANAPHYLAXIS Verified 05/16/21 13:03 Review of Systems Review of Systems Narrative: ALL SYSTEM REVIEWED. NEGATIVE UNLESS NOTED ABOVE IN HPI Exam Vital Signs (past 8 hours): - 05/16/21 13:03 05/16/21 13:13 05/16/21 13:16 Temperature 98.3 F Pulse Rate 123 H 68 Respiratory Rate 21 Blood Pressure 134/93 H 140/70 Pulse Oximetry 85 L 80 L 91 05/16/21 13:30 05/16/21 14:00 05/16/21 14:30 Temperature Pulse Rate 121 H 112 H 106 H Respiratory Rate Blood Pressure 136/62 139/61 124/56 L Pulse Oximetry 90 L 98 98 05/16/21 15:00 05/16/21 15:25 05/16/21 15:30 Temperature Pulse Rate 104 H 104 H 104 H Respiratory Rate 29 H 27 H 31 H Blood Pressure 129/58 L 130/63 Pulse Oximetry 99 97 05/16/21 16:00 05/16/21 16:30 05/16/21 17:04 Temperature Pulse Rate 107 H 102 H 98 H Respiratory Rate 28 H 29 H 25 H Blood Pressure 133/57 L 116/56 L 133/62 Pulse Oximetry 95 99 99 05/16/21 17:30 Temperature Pulse Rate 95 H Respiratory Rate 24 Blood Pressure Pulse Oximetry 100 Oxygen Delivery Method Nasal Cannula Oxygen Flow Rate 4 Narrative Exam Narrative: NO ACUTE DISTRESS. WELL NOURISHED. APPEARS STATED AGE. HEAD ATRAUMATIC NORMOCEPHALIC NECK : SUPPLE WITHOUT ADENOPATHY NO CAROTID BRUITS EYE: EOMI, PERRLA, NORMAL CONJUNCTIVA; NO JAUNDICE CHEST: REGULAR RATE. NO RUBS. PMI IS NON DISPLACED. NO MURMURS; NORMAL S1-S2 PULMONARY: DECREASED BS OVER THE BASES. BIBASILAR CRACKLES NOTED; NO INCREASED DULLNESS TO PERCUSSION MILD WHEEZING APPRECIATED BILATERALLY. NO WELLS. ABDOMEN: SOFT. NONTENDER. NONDISTENDED. BOWEL SOUNDS ARE PRESENT IN ALL 4 QUADRANTS. EXTREMITIES: NO EDEMA.. NO CYANOSIS CLUBBING NOTED. NEURO: CRANIAL NERVES 2-12 GROSSLY INTACT. NO FOCAL NEUROLOGICAL DEFICIT NOTED. MSK: NORMAL RANGE OF MOTION FOR AGE. NO JOINT EFFUSION. SKIN: AGE ASSOCIATED POOR SKIN TURGOR. NO LESIONS. NO ECCHYMOSIS. : NORMAL EXTERNAL GENITALIA. PSYCH : CALM. COOPERATIVE.. ALERT AWAKE ORIENTED X3 Objective Labs Result Diagrams: 05/16/21 13:20 05/16/21 13:20 Labs: Laboratory Results - last 24 hr 05/16/21 05/16/21 05/16/21 13:08 13:20 13:20 WBC 19.0 H RBC 3.97 L Hgb 14.0 Hct 41.4 MCV 104.2 H MCH 35.2 H MCHC 33.8 RDW 14.3 Plt Count 299 Neut % (Auto) 66.8 Lymph % (Auto) 30.4 [place] % (Auto) 2.7 L Eos % (Auto) 0.0 L Baso % (Auto) 0.1 Neut # (Auto) 81908 H Lymph # (Auto) 5800 H [place] # (Auto) 500 Eos # (Auto) 0 Baso # (Auto) 0 D-Dimer ABG pH ABG pCO2 ABG pO2 ABG HCO3 ABG Total CO2 ABG O2 Saturation ABG Base Excess FiO2 Sodium 139 Potassium 4.2 Chloride 102 Carbon Dioxide 28 BUN 23 H Creatinine 0.51 L Estimated GFR > 60.0 BUN/Creatinine Ratio 45.1 H Glucose 162 H Lactate Calcium 10.3 H Total Bilirubin 0.9 AST 112 H ALT 76 H Alkaline Phosphatase 177 H Total Creatine Kinase CK-MB (CK-2) CK-MB (CK-2) Rel Index Troponin I NT-Pro-B Natriuret Pep Total Protein 8.7 H Albumin 4.3 Globulin 4.4 H Albumin/Globulin Ratio 1.0 Procalcitonin Chlamy pneumoniae PCR Adenovirus (PCR) B. pertussis DNA (PCR) B.parapertussis DNA PCR Coronavirus OC43 (PCR) Coronavirus HKU1 (PCR) Coronavirus 229E (PCR) SARS-CoV-2 (PCR) Negative Coronavirus NL63 (PCR) Human Metapneumovir PCR Influenza Type A (PCR) Influenza Type B (PCR) M. pneumoniae (PCR) Parainfluenza 1 (PCR) Parainfluenza 2 (PCR) Parainfluenza 3 (PCR) Parainfluenza 4 (PCR) RSV (PCR) Entero/Rhino (PCR) 05/16/21 05/16/21 05/16/21 13:20 13:20 13:20 WBC RBC Hgb Hct MCV MCH MCHC RDW Plt Count Neut % (Auto) Lymph % (Auto) [place] % (Auto) Eos % (Auto) Baso % (Auto) Neut # (Auto) Lymph # (Auto) [place] # (Auto) Eos # (Auto) Baso # (Auto) D-Dimer ABG pH ABG pCO2 ABG pO2 ABG HCO3 ABG Total CO2 ABG O2 Saturation ABG Base Excess FiO2 Sodium Potassium Chloride Carbon Dioxide BUN Creatinine Estimated GFR BUN/Creatinine Ratio Glucose Lactate 2.1 Calcium Total Bilirubin AST ALT Alkaline Phosphatase Total Creatine Kinase 42 CK-MB (CK-2) TNP CK-MB (CK-2) Rel Index TNP Troponin I < 0.012 NT-Pro-B Natriuret Pep 417 Total Protein Albumin Globulin Albumin/Globulin Ratio Procalcitonin 0.18 Chlamy pneumoniae PCR Adenovirus (PCR) B. pertussis DNA (PCR) B.parapertussis DNA PCR Coronavirus OC43 (PCR) Coronavirus HKU1 (PCR) Coronavirus 229E (PCR) SARS-CoV-2 (PCR) Coronavirus NL63 (PCR) Human Metapneumovir PCR Influenza Type A (PCR) Influenza Type B (PCR) M. pneumoniae (PCR) Parainfluenza 1 (PCR) Parainfluenza 2 (PCR) Parainfluenza 3 (PCR) Parainfluenza 4 (PCR) RSV (PCR) Entero/Rhino (PCR) 05/16/21 05/16/21 05/16/21 13:20 13:40 14:53 WBC RBC Hgb Hct MCV MCH MCHC RDW Plt Count Neut % (Auto) Lymph % (Auto) [place] % (Auto) Eos % (Auto) Baso % (Auto) Neut # (Auto) Lymph # (Auto) [place] # (Auto) Eos # (Auto) Baso # (Auto) D-Dimer 2588 H ABG pH 7.40 ABG pCO2 44.5 ABG pO2 56 L ABG HCO3 28 H ABG Total CO2 29 ABG O2 Saturation 89 L ABG Base Excess 3.0 H FiO2 21 Sodium Potassium Chloride Carbon Dioxide BUN Creatinine Estimated GFR BUN/Creatinine Ratio Glucose Lactate Calcium Total Bilirubin AST ALT Alkaline Phosphatase Total Creatine Kinase CK-MB (CK-2) CK-MB (CK-2) Rel Index Troponin I NT-Pro-B Natriuret Pep Total Protein Albumin Globulin Albumin/Globulin Ratio Procalcitonin Chlamy pneumoniae PCR Not detected Adenovirus (PCR) Not detected B. pertussis DNA (PCR) Not detected B.parapertussis DNA PCR Not detected Coronavirus OC43 (PCR) Not detected Coronavirus HKU1 (PCR) Not detected Coronavirus 229E (PCR) Not detected SARS-CoV-2 (PCR) Not detected Coronavirus NL63 (PCR) Not detected Human Metapneumovir PCR Not detected Influenza Type A (PCR) Not detected Influenza Type B (PCR) Not detected M. pneumoniae (PCR) Not detected Parainfluenza 1 (PCR) Not detected Parainfluenza 2 (PCR) Not detected Parainfluenza 3 (PCR) Not detected Parainfluenza 4 (PCR) Not detected RSV (PCR) Not detected Entero/Rhino (PCR) Not detected 05/16/21 15:44 WBC RBC Hgb Hct MCV MCH MCHC RDW Plt Count Neut % (Auto) Lymph % (Auto) [place] % (Auto) Eos % (Auto) Baso % (Auto) Neut # (Auto) Lymph # (Auto) [place] # (Auto) Eos # (Auto) Baso # (Auto) D-Dimer ABG pH ABG pCO2 ABG pO2 ABG HCO3 ABG Total CO2 ABG O2 Saturation ABG Base Excess FiO2 Sodium Potassium Chloride Carbon Dioxide BUN Creatinine Estimated GFR BUN/Creatinine Ratio Glucose Lactate 1.3 Calcium Total Bilirubin AST ALT Alkaline Phosphatase Total Creatine Kinase CK-MB (CK-2) CK-MB (CK-2) Rel Index Troponin I NT-Pro-B Natriuret Pep Total Protein Albumin Globulin Albumin/Globulin Ratio Procalcitonin Chlamy pneumoniae PCR Adenovirus (PCR) B. pertussis DNA (PCR) B.parapertussis DNA PCR Coronavirus OC43 (PCR) Coronavirus HKU1 (PCR) Coronavirus 229E (PCR) SARS-CoV-2 (PCR) Coronavirus NL63 (PCR) Human Metapneumovir PCR Influenza Type A (PCR) Influenza Type B (PCR) M. pneumoniae (PCR) Parainfluenza 1 (PCR) Parainfluenza 2 (PCR) Parainfluenza 3 (PCR) Parainfluenza 4 (PCR) RSV (PCR) Entero/Rhino (PCR) Assessment & Plan Assessment & Plan narrative: PROBLEM LIST ACUTE HYPOXIC RESPIRATORY FAILURE. MULTIFACTORIAL ACUTE COPD EXACERBATION. ON ABX AND STEROID BILATERAL PNEUMONIA. LIKELY COMMUNITY-ACQUIRED. ON ANTIBIOTICS SEPSIS. PRESENT ON ARRIVAL. ON ABX LACTIC ACIDOSIS. ASSOCIATED WITH SEPSIS LEUKOCYTOSIS. SECONDARY TO INFECTIOUS PROCESS ELEVATED LIVER ENZYMES. LIKELY RELATED TO STATIN USE POSSIBLE PULMONARY NODULES. TO BE FOLLOWED AND 3-6 MONTHS OUTPATIENT NONOBSTRUCTIVE RENAL STONES. MONITOR ONLY FOR NOW POSSIBLE ADRENAL LESION. AWARE HYPERLIPIDEMIA PER HISTORY PLAN STARTED ON OXYGEN THERAPY TO MAINTAIN OXYGEN SATURATION ABOVE 90% AT ALL TIME WILL ALSO STARTED ON ANTIBIOTICS ROCEPHIN, DOXY AND FLAGYL HAS BEEN ORDERED DUONEB TREATMENT ORDERED ALBUTEROL INHALERS NEEDED GET SPUTUM CULTURE INCENTIVE SPIROMETER ORDERED TO USE WHILE AWAKE FOR THE INCIDENTAL FINDING ON CT - COULD BE FOLLOWED OUTPATIENT OR FURTHER WORKUP IF INDICATED ONLY DURING THIS HOSPITAL STAY REPEAT CHEST X-RAY AND ABG SERIALLY TO FOLLOW LACTATE WAS ONLY MILDLY ELEVATED ON ADMISSION WILL CONSIDER REPEATING LEVEL IF INDICATED CLINICALLY ON THE WILL NEED TO BE ELEVATED FOR HOME OXYGEN ON DISPOSITION AVOID LIVER TOXIC SUBSTANCES AT THIS TIME WILL HOLD STATIN OKAY FOR ASPIRIN AT LOW DOSE FOR FEVER IF NEEDED DAILY LAB TO FOLLOW MONITOR INPUT AND OUTPUT CLOSELY MONITOR FOR C DIFF WELL WHILE ON ANTIBIOTIC THERAPY ADDITIONAL MANAGEMENT AND DISCHARGE PER CLINICAL COURSE PROGNOSIS GUARDED Time Spent With Patient Critical Care time: I spent a total of [] minutes of critical care time on this patient's care today; this time is exclusive of procedural time.
[2021-05-16] MEDS: BUDESONIDE 0.5 MG/2 ML NEB INH (20:26)
[2021-05-16] MEDS: SODIUM CHLORIDE 0.9% 100 ML (20:36)
[2021-05-16] MEDS: methylPREDNISolone 125 MG/2 ML VIAL 60 MG IV (20:51)
[2021-05-16] MEDS: DOXYCYCLINE 100 MG in SODIUM CHLORIDE 0.9% 100 ML IV (20:52)
[2021-05-16] MEDS: metroNIDAZOLE 500 MG TABLET PO (20:52)
[2021-05-16] MEDS: ASCORBIC ACID 500 MG TABLET PO (20:52)
[2021-05-16] MEDS: SUCRALFATE 1 GM TABLET PO (20:53)
[2021-05-16] MEDS: BENZONATATE 100 MG CAPSULE 200 MG PO (20:53)
[2021-05-16] MEDS: FAMOTIDINE 20 MG TABLET 40 MG PO (20:53)
[2021-05-17] VITALS (15 sets, daily range): BP systolic 93–131; BP diastolic 49–66; PULSE 70–114; RESP 17–28; TEMP 36.1–37.3; O2SAT 91–97
[2021-05-17] MEDS: methylPREDNISolone 125 MG/2 ML VIAL 60 MG IV ×3 (02:36→18:13)
[2021-05-17 06:14] LABS: Add Manual Diff / Slide Review NO; Basophils Absolute Auto 0 /uL (0-100); Basophils Percent Auto 0.1 % (0-2); Eosinophils Absolute Auto 0 /uL (0-450); Hematocrit 34.2 % (36-46); Hemoglobin 11.5 g/dL (12.0-16.0); Lymphocytes Absolute Auto 3200 /uL (1100-4500); Lymphocytes Percent Auto 28.8 % (25-40); Mean Corpuscular HGB Conc 33.6 % (30-36); Mean Corpuscular Hemoglobin 35.2 PG (26-34); Mean Corpuscular Volume 104.7 fL (80-100); Monocytes Absolute Auto 100 /uL (0-900); Monocytes Percent Auto 1.1 % (3-14); Neutrophils Absolute Auto 7900 /uL (1500-7000); Platelet Count 234 X10^3/uL (150-400); Red Blood Cell Count 3.27 X10^6/uL (4.0-5.2); Red Cell Distribution Width 14.2 % (11.6-14.8); White Blood Cell Count 11.2 X10^3/uL (4.5-11.0)
[2021-05-17 06:17] LABS: Alanine Aminotransferase 67 IU/L (<35); Albumin 3.4 g/dL (3.5-5.0); Alkaline Phosphatase 111 U/L (38-126); Aspartate Aminotransferase 66 IU/L (14-36); BUN Creatinine Ratio 48.6 (6-22); Bilirubin Total 0.4 mg/dL (0.2-1.3); Blood Urea Nitrogen 18 mg/dL (7-17); Calcium 9.1 mg/dL (8.4-10.2); Carbon Dioxide 31 mmol/L (22-32); Chloride 104 mmol/L (98-107); Estimated Glomerular Filt Rate > 60.0 mL/min (>60); Globulin 3.4 g/dL (1.7-4.1); Glucose 152 mg/dL (80-110); HEMOLYSIS < 15 (0-50); Magnesium 1.6 mg/dL (1.6-2.3); Phosphorous 3.1 mg/dL (2.8-4.1); Potassium 4.2 mmol/L (3.4-5.1); Sodium 138 mmol/L (137-145); Total Protein 6.8 g/dL (6.3-8.2)
[2021-05-17] MEDS: DOXYCYCLINE 100 MG in SODIUM CHLORIDE 0.9% 100 ML IV ×2 (07:09→18:13)
[2021-05-17] MEDS: SUCRALFATE 1 GM TABLET PO ×4 (07:10→21:10)
[2021-05-17] MEDS: ALBUTEROL/IPRATROPIUM 3 ML AMPUL INH ×3 (09:00→17:24)
[2021-05-17] MEDS: ENOXAPARIN 40 MG/0.4 ML SYRINGE SUBCUT (09:39)
[2021-05-17] MEDS: ASPIRIN EC 81 MG TABLET PO (09:40)
[2021-05-17] MEDS: metroNIDAZOLE 500 MG TABLET PO ×3 (09:40→21:10)
[2021-05-17] MEDS: CHOLECALCIFEROL (VITAMIN D3) 1,000 UNIT TABLET 2000 UNIT PO (09:40)
[2021-05-17] MEDS: LACTOBACILLUS ACIDOPHILUS TABLET 1 EACH PO ×3 (09:40→16:56)
[2021-05-17] MEDS: BENZONATATE 100 MG CAPSULE 200 MG PO ×3 (09:40→21:08)
[2021-05-17] MEDS: LEVOTHYROXINE 50 MCG TABLET PO (09:41)
[2021-05-17] MEDS: ACETAMINOPHEN 325 MG TABLET 650 MG PO (09:41)
[2021-05-17] MEDS: FAMOTIDINE 20 MG TABLET 40 MG PO ×2 (09:41→21:08)
[2021-05-17] MEDS: ASCORBIC ACID 500 MG TABLET PO ×2 (09:42→21:10)
[2021-05-17] MEDS: BUDESONIDE 0.5 MG/2 ML NEB INH ×2 (10:03→19:53)
--- NOTE | 2021-05-17 10:53 | OT.IP.EVAL ---
Past Medical History (Last Reviewed 05/16/21 @ 13:21 by Arsen Aparicio DO) COPD (chronic obstructive pulmonary disease) History of left knee replacement Leukemia Surgical History (Last Reviewed 05/16/21 @ 13:21 by Arsen Aparicio DO) History of left knee replacement Occupational Therapy Inpatient Evaluation/Re-Eval M1 PT/OT-IP Prior Functional Status Start: 05/17/21 08:17 Freq: Status: Active Protocol: Document 05/17/21 10:07 [facility] (Rec: 05/17/21 11:06 MB [id number]) Medical Review Prior Functional Status Medical History Reviewed Yes Diet/Fluid Consistency Regular Communication Pt reports history of occ word -finding issues after stroke but no other real trouble with communication Mobility and Gait Furniture walker and has a RW that she does not really use Activities of Daily Living and IADL's Mod I Prior Functional Level (Other details) Mod I Social History Household Members family Living Arrangements House Number of Floors (Floors) Two Floors Number of Stairs To Enter/Railing? Pt lives in basement apartment and does not have to do steps Home Equipment Front Wheel Walker,Straight Cane,Raised Toilet Seat w/ Armrests,Hand Held Shower Employment Status Retired Additional Social History Comment Pt lives in basement apartment with her family. She has an accessible bathroom that was built for her by her family after hip fracture in 2019. She has a walk-in bathing situation with seat, hand held shower head and she is mod I for her ADLs and IADLs. 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 She has had falls with last fall a month ago. She was not on O2 at home before adm. M2 OT-IP Current Condition Start: 05/17/21 12:43 Freq: Status: Active Protocol: Document 05/17/21 10:05 [facility] (Rec: 05/17/21 13:36 [facility] [id number]) Occupational Therapy Current Condition Current Condition Evaluation Date 05/17/21 Treatment Diagnosis Bilateral PNA Diagnosis Onset Date 05/16/21 M3 OT- IP Subjective and Pain Start: 05/17/21 12:43 Freq: Status: Active Protocol: Document 05/17/21 10:05 [facility] (Rec: 05/17/21 13:36 [facility] [id number]) OT- Subjective Occupational Therapy Visit Comments Patient Comments Pt agreed to get up. Patient/Caregiver Goals Pt wanting to go home. OT Pain Assessment Pain When Pain Assessed At Rest Pain Present Pain Present Pain Reported M4 OT- IP ADL's Start: 05/17/21 12:43 Freq: Status: Active Protocol: Document 05/17/21 10:05 [facility] (Rec: 05/17/21 13:36 [facility] [id number]) OT [id number] General Evaluation Self-Feeding Ability Standby Assistance Comments OT Self-Feeding Comments set-up OT ADL-Grooming General Evaluation Areas Needing Assistance Retrieving/Set-up of Grooming Items Comments OT Grooming Comments Able to do after set-up of items while standing with FWW by the sink. OT ADL-Oral Care General Eval Oral Care Ability Independent OT ADL-Dressing Comments OT Dressing Comments Not performed. OT ADL-Toileting Comments OT Toileting Comments Pt not having to go. OT ADL-Bathing Comments OT Bathing Comments Sponge bath more appropriate at this time due to pt fatigues quickly. M5 OT- IP IADL's Start: 05/17/21 12:43 Freq: Status: Active Protocol: Document 05/17/21 10:05 [facility] (Rec: 05/17/21 13:36 [facility] [id number]) OT-Instrumental Activities of Daily Living Home Safety Awareness Awareness of Need for Assistance at Home Good Awareness Ability to Problem Solve Emergency Able to Problem Solve Situations Meal Preparation Meal Preparation Caregiver Provides Assist Kitchen And Bath Designer Kitchen And Bath Designer Caregiver Provides Assist M6 OT- IP Functional Cognition Start: 05/17/21 12:43 Freq: Status: Active Protocol: Document 05/17/21 10:05 [facility] (Rec: 05/17/21 13:36 [facility] [id number]) Cognitive Factors Limiting Selfcare Function Cognitive Ability Level of Alertness Alert Patient Orientation Name,Age,Birthday,Month,Date, Year,Day of Week,Place, Situation Attention Span Ability Capable of Focused Attention, Capable of Sustained Attention Ability to Follow Commands Able to Follow Multi-Step Commands Memory Description Short Term Impaired Safety Awareness Underestimates Need for Assistance Cognitive Comments Cognitive Assessment Comments Pt states know better that she should use a device at home at times but choices not to. Pt able to follow commands for ADl and mobility needs and needing cues for safety at time. Pt realizes now that she is too weak to be able to care for herself as prior in alone during the day and now would needs assist at all times or go to skilled rehab. OT- Vision and Hearing OT- Vision Assessment Vision Assessment Comments Pt is hard of hearing. M7 OT- IP Mobility and Balance Start: 05/17/21 12:43 Freq: Status: Active Protocol: Document 05/17/21 10:05 [facility] (Rec: 05/17/21 13:36 [facility] [id number]) OT- Bed Mobility Assessment Rolling Level of Assistance Independent Supine to Sit Supine to Sit Assist Independent OT-Transfer Assessment Sit to and From Stand Sit to and from Stand Contact Guard Assistance Transfers Transfer Ability Contact Guard Assistance Technique Transfer Destination Bed,Chair Transfer Technique Stand Step Pivot Devices Transfer Assistive Devices Gait Belt,Front Wheeled Walker Comments Mobility Comments CGA for safety and assist to manage O2 tubing. Pt on 2L and at 95% and while up on her feet O2 dropped to low 80's and after sitting back down and then increased to 3L as per nursing ok to turn the O2 up as long as O2 readings above 90%. Pt needing several minutes to get above 90% and after 5 minutes able to return O2 down to 2L, pt's nurse notified of results and chair alarm placed on the pt. OT- Gait Assessment Comments Gait Ability Comments CGA with FWW OT- Balance Assessment Sitting Balance and Reactions Static Sitting Balance Ability Good Dynamic Sitting Balance Ability Good Standing Balance and Reactions Static Standing Balance Ability Fair Dynamic Standing Balance Ability Fair M8 OT- IP Objective Assessments Start: 05/17/21 12:43 Freq: Status: Active Protocol: Document 05/17/21 10:05 [facility] (Rec: 05/17/21 13:36 [facility] [id number]) OT Strength Comments Strength Comments WFL for her needs. OT- Coordination Assessment Comments Coordination Comments Arthritic changes in her hands . OT-Muscle Tone Assessment Muscle Tone WNL Yes M9 OT- IP Assessment and Plan Start: 05/17/21 12:43 Freq: Status: Active Protocol: Document 05/17/21 10:05 [facility] (Rec: 05/17/21 13:36 [facility] [id number]) OT Summary Assessment and Plan Potential Rehabilitation Potential Good Analytic Complexity at Evaluation Moderate Summary OT Impairments Strength,Balance,Functional Mobility,Grooming,Dressing, Toileting,Bathing,Toilet Transfers,Shower Transfers, Activity Tolerance Progress Towards Goals Slow Progress due to Medical Issues,Slow Progress due to Activity Tolerance Assessment Summary Pt MOD complexity due to bilateral PNA and now gets easily SOB O2 on 2L dropped from 95% to low 80's and gets very short of breath and HR increases to 122. Pt would benefit from short skilled rehab versus home with 24/7 available assist especially to assist for O2 tubing management and IADL needs. Goals Self-Feeding Goal Independent Grooming Goal Independent Dressing Goal Independent Toileting Goal Independent Bathing Goal Independent Toilet Transfer Goal Independent Shower Transfer Goal Independent Days to Meet Goals 15 Frequency of Treatment Frequency Of Treatment Once a Day Treatment Plan OT Treatment Plan ADL Training,Functional Mobility,Patient/Family Education,Discharge Planning Discharge Recommendations OT Discharge Recommendations Home with 24/7 Assist Available,Home Health,SNF Rehab,Home vs SNF Transportation Needs at Discharge Private Vehicle,Wheelchair/ Cabulance
--- NOTE | 2021-05-17 11:06 | PT.IIE ---
Medical History (Last Reviewed 05/16/21 @ 13:21 by Arsen Aparicio DO) COPD (chronic obstructive pulmonary disease) Leukemia Physical Therapy Inpatient Evaluation/Re-Eval M1 PT/OT-IP Prior Functional Status Start: 05/17/21 08:17 Freq: Status: Active Protocol: Document 05/17/21 10:07 [facility] (Rec: 05/17/21 11:06 [id number]) Medical Review Prior Functional Status Medical History Reviewed Yes Diet/Fluid Consistency Regular Communication Pt reports history of occ word -finding issues after stroke but no other real trouble with communication Mobility and Gait Furniture walker and has a RW that she does not really use Activities of Daily Living and IADL's Mod I Prior Functional Level (Other details) Mod I Social History Household Members family Living Arrangements House Number of Floors (Floors) Two Floors Number of Stairs To Enter/Railing? Pt lives in basement apartment and does not have to do steps Home Equipment Front Wheel Walker,Straight Cane,Raised Toilet Seat w/ Armrests,Hand Held Shower Employment Status Retired Additional Social History Comment Pt lives in basement apartment with her family. She has an accessible bathroom that was built for her by her family after hip fracture in 2019. She has a walk-in bathing situation with seat, hand held shower head and she is mod I for her ADLs and IADLs. 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 She has had falls with last fall a month ago. She was not on O2 at home before adm. M2 PT-IP Current Condition Start: 05/17/21 08:17 Freq: Status: Active Protocol: Document 05/17/21 10:07 [facility] (Rec: 05/17/21 11:06 [id number]) Physical Therapy Current Condition Current Condition Evaluation Date 05/17/21 Treatment Diagnosis SOB, SOTELO and decreased mobility Onset Date 2 weeks ago (over Jolene) M3 PT-IP Subjective Start: 05/17/21 08:17 Freq: Status: Active Protocol: Document 05/17/21 10:07 MB (Rec: 05/17/21 11:06 [id number]) Subjective Physical Therapy Visit Type Type Initial Evaluation Visit Start Time 10:07 Visit Stop Time 10:37 Total Visit Minutes 30 Number of 2ND GRADE TEACHER Visits 0 Physical Therapy Visit Comments Patient Comments Pt states that she feels worse today than she did yesterday. She states that she knows she waited too long before coming into the hospital. Patient Goals To go home, she is open to services Therapy Pain Assessment Pain When Pain Assessed At Rest Pain Present Pain Present Denied Pain M4 PT-IP Mobility and Gait Start: 05/17/21 08:17 Freq: Status: Active Protocol: Document 05/17/21 10:07 MB (Rec: 05/17/21 11:06 MB [id number]) PT-Bed Mobility Assessment Supine to Sit Supine to Sit Independent,1 Person Assistance,Head of Bed Elevated,Bedrails Scooting Scooting to Edge of Bed Standby Assistance PT-Transfer Assessment Sit to and From Stand Sit to and from Stand Standby Assistance,1 Person Assistance,Use of Upper Extremities Equipment Transfer Assistive Device Gait Belt,Front Wheeled Walker Orthotic/Prosthetic Devices or Brace: No Transfer Ability Level of Assist Standby Assistance Comments Mobility Comments Pt mobilizes well. Requires frequent rest breaks to stop talking before mobility in order to work on breathing in and out of her nose to get the benefit of the O2 and to decrease HR. Pt just finishing neb treatment upon therapist arrival and RT arrives. Pt put back on 2L O2. During subjective history, pt provides a lot of good information about PLOF and home situation. She becomes SOTELO with talking and cannot rate how SOB she feels. Sats decrease to 92% on the 2L of O2 and her HR increases up to 117 BPM. Rest before mobility to improve sats and HR. HR decreases to around 100 BPM and easily raises again with SOTELO and decreasing sats with mobility. Pulse ox does not always read accurately. Pt is able to move in the bed and to EOB with HOB increases and use of rails and no manual assist from therapist. Short gait and standing at sink similar: superv to CGA d/t fragility and SOTELO with sats and HR not reading consistently. Gait Assessment Gait Gait Assistance Required: Standby Assistance,Contact Guard Assist Distance (Feet) 5 Assistive Devices Assistive Device Gait Belt,Front Wheeled Walker Orthotic/Prosthetic Devices or Brace: No Gait Deviations General Gait Pattern Decreased Stride Length, Decreased Feet Clearance, Flexed Trunk Factors Limiting Gait Function Factors Limiting Gait Function Decreased Activity Tolerance, Decreased Strength Comments Gait Comments Pt presents with with SOTELO with speaking and mobility today. She requires SBA to CGA and assist to manage lines to gait train 5'x2 from bed to sink and sink to chair. Pt left up in chair with OT nearby. Once again, SOTELO, increasing HR and decreasing O2 sats are barriers to PT. Pulse ox does not read accurately for HR when PT assesses manually and so unsure how low sats are dropping. Each time she appears dyspneic, did stop activity to encourage slower nasal breaths. PT-Balance Assessment Sitting Balance and Reactions Static Sitting Balance Ability Good Dynamic Sitting Balance Ability Good Standing Balance and Reactions Static Standing Balance Ability Good Dynamic Standing Balance Ability Good Device Used UE support for static and dynamic sitting and standing M5 PT-IP Objective Assessments Start: 05/17/21 08:17 Freq: Status: Active Protocol: Document 05/17/21 10:07 MB (Rec: 05/17/21 11:06 MB [id number]) Orientation Orientation/Cognition Level of Alertness Alert Orientation Name,Age,Birthday,Month,Date, Year,Day of Week,Place, Situation Language Function Ability No Deficits Noted Safety Awareness Decreased Safety Awareness Memory Description No Deficits Noted Comments Pt is pleasant and A&O. She reports making decisions at home not to use AD d/t vanity despite falls and respiratory symptoms. She also states she waited too long to come to the hospital. Gross Range of Motion Upper Extremity ROM Assessment Within Functional Limits Lower Extremity ROM Assessment Within Functional Limits Strength Upper Extremity Strength Assessment Within Functional Limits Lower Extremity Strength Assessment Within Functional Limits Comments Strength Comments Pt presents with B LE edema and her functional strength with MMT ankles and B SLR in the bed is normal for her age Coordination Assessment Assessment Coordination Comments Will defer UE comments to OT M6 PT-IP Treatment Start: 05/17/21 08:17 Freq: Status: Active Protocol: Document 05/17/21 10:07 MB (Rec: 05/17/21 11:06 MB [id number]) Physical Therapy Treatment Education Education Provided Safety M7 PT-IP Assessment and Plan Start: 05/17/21 08:17 Freq: Status: Active Protocol: Document 05/17/21 10:07 MB (Rec: 05/17/21 11:06 MB [id number]) PT Summary Assessment and Plan Potential Rehabilitation Potential Fair Status of Condition at Evaluation Evolving Summary Impairments Balance,Bed Mobility,Transfers ,Gait,Activity Tolerance Assessment Summary Pt is an 80 y/o female presenting with SOTELO with talking and mobility. Pulse ox readings are questionable given the readings for HR do not match PT's palpation of HR . Overall, HR increases to the low 120s with mobility and her oxygen does desat on 2L. She does present with some mouth breathing and might tolerate breathing through the cannula if some moisture is added to the O2. She has mild crackling sounds with breathing when up and the air in the O2 line sounds slightly difficult for her to manage. Despite her fragile respiratory presentation, she mobilizes well for short distances. Once again, her safety and mobility are limited by her respiratory status. She presents with questionable safety at home. Despite having a life alert, a supportive family and an accessible basement apartment, she states she has resisted using an AD despite history of falling. She also stated she waited too long to get to the hospital. She will benefit from PT to improve mobility and safey. Barriers include respiratory status and decreased safety awareness. Goals Bed Mobility Goal Independent Transfer Goal Independent Gait Goal Independent Gait Distance 75 Days to Meet Goals 5 Frequency of Treatment Frequency Of Treatment Once a Day Treatment Plan Physical Therapy Treatment Plan Bed Mobility Training,Transfer Training,Gait Training, Therapeutic Exercise,Balance Retraining,Discharge Planning, Neuromuscular Re-ed Other Recommendations and Next Treatment Increase mobility Focus Precautions Other Precautions Decreasing sats and increasing HR with talking and mobility, fall risk Recommendations To Nursing Amount of Assist Needed Standby Assistance,1 Person Assist Discharge Recommendations PT Discharge Recommendations Home vs SNF Transportation Needs at Discharge Wheelchair/Cabulance
[2021-05-17] MEDS: cefTRIAXone 1,000 MG in SODIUM CHLORIDE 0.9% 100 ML 200 ML IV (14:56)
--- NOTE | 2021-05-17 15:17 | PM.PN.1 ---
Subjective Subjective Date Patient Seen: 05/17/21 Interval history: THIS IS AN 80-YEAR-OLD FEMALE WITH A PAST MEDICAL HISTORY TOBACCO ABUSE BEING TREATED FOR PNEUMONIA AND SUSPECTED COPD EXACERBATION TODAY SHE FEELS MUCH BETTER SHE STATED THAT HER BREATHING IS GETTING BETTER SHE DENIES ANY CHEST PAIN. NO CHEST PRESSURE NO NAUSEA OR VOMITING SHE DENIES ANY HEADACHES OR MIGRAINE NO DIZZINESS OR DROWSINESS Exam Vital Signs (past 8 hours): - 05/17/21 07:50 05/17/21 09:00 05/17/21 09:08 Pulse Rate 104 H 102 H Respiratory Rate Pulse Oximetry 95 94 05/17/21 10:15 Pulse Rate 85 Respiratory Rate 28 H Pulse Oximetry 94 Oxygen Delivery Method Nasal Cannula Oxygen Flow Rate 2 Narrative Exam Narrative: NO ACUTE DISTRESS. WELL ? NOURISHED.? APPEARS STATED AGE. HEAD ATRAUMATIC NORMOCEPHALIC NECK : SUPPLE WITHOUT ADENOPATHY NO CAROTID BRUITS EYE:? EOMI, PERRLA, NORMAL CONJUNCTIVA; NO JAUNDICE CHEST:? REGULAR RATE.? ? NO RUBS.? PMI IS NON DISPLACED.? NO MURMURS; NORMAL S1-S2 PULMONARY:? DECREASED BS OVER THE BASES.? ? BIBASILAR CRACKLES NOTED; NO INCREASED DULLNESS TO PERCUSSION ?NO WHEEZING APPRECIATED ON EXAM TODAY .? NO WELLS. ABDOMEN:? SOFT.? NONTENDER.? NONDISTENDED.? BOWEL SOUNDS ARE PRESENT IN ALL 4 QUADRANTS. ? EXTREMITIES: NO EDEMA..? NO CYANOSIS CLUBBING NOTED. NEURO:? CRANIAL NERVES 2-12 GROSSLY INTACT. NO FOCAL NEUROLOGICAL DEFICIT NOTED. MSK:? NORMAL RANGE OF MOTION FOR AGE.? NO JOINT EFFUSION. SKIN:? AGE ASSOCIATED POOR SKIN TURGOR.? NO LESIONS.? NO ECCHYMOSIS. :? NORMAL EXTERNAL GENITALIA. PSYCH : ? CALM.? COOPERATIVE..? ALERT AWAKE ORIENTED X3 Objective Labs Result Diagrams: 05/17/21 05:45 05/17/21 05:45 Labs: Laboratory Results - last 24 hr 05/16/21 05/16/21 05/17/21 14:53 15:44 05:45 WBC 11.2 H RBC 3.27 L Hgb 11.5 L Hct 34.2 L MCV 104.7 H MCH 35.2 H MCHC 33.6 RDW 14.2 Plt Count 234 Neut % (Auto) 70.0 Lymph % (Auto) 28.8 [place] % (Auto) 1.1 L Eos % (Auto) 0.0 L Baso % (Auto) 0.1 Neut # (Auto) 7900 H Lymph # (Auto) 3200 [place] # (Auto) 100 Eos # (Auto) 0 Baso # (Auto) 0 Sodium Potassium Chloride Carbon Dioxide BUN Creatinine Estimated GFR BUN/Creatinine Ratio Glucose Lactate 1.3 Calcium Phosphorus Magnesium Total Bilirubin AST ALT Alkaline Phosphatase Total Protein Albumin Globulin Albumin/Globulin Ratio Chlamy pneumoniae PCR Not detected Adenovirus (PCR) Not detected B. pertussis DNA (PCR) Not detected B.parapertussis DNA PCR Not detected Coronavirus OC43 (PCR) Not detected Coronavirus HKU1 (PCR) Not detected Coronavirus 229E (PCR) Not detected SARS-CoV-2 (PCR) Not detected Coronavirus NL63 (PCR) Not detected Human Metapneumovir PCR Not detected Influenza Type A (PCR) Not detected Influenza Type B (PCR) Not detected M. pneumoniae (PCR) Not detected Parainfluenza 1 (PCR) Not detected Parainfluenza 2 (PCR) Not detected Parainfluenza 3 (PCR) Not detected Parainfluenza 4 (PCR) Not detected RSV (PCR) Not detected Entero/Rhino (PCR) Not detected 05/17/21 05:45 WBC RBC Hgb Hct MCV MCH MCHC RDW Plt Count Neut % (Auto) Lymph % (Auto) [place] % (Auto) Eos % (Auto) Baso % (Auto) Neut # (Auto) Lymph # (Auto) [place] # (Auto) Eos # (Auto) Baso # (Auto) Sodium 138 Potassium 4.2 Chloride 104 Carbon Dioxide 31 BUN 18 H Creatinine 0.37 L Estimated GFR > 60.0 BUN/Creatinine Ratio 48.6 H Glucose 152 H Lactate Calcium 9.1 Phosphorus 3.1 Magnesium 1.6 Total Bilirubin 0.4 AST 66 H ALT 67 H Alkaline Phosphatase 111 D Total Protein 6.8 Albumin 3.4 L Globulin 3.4 Albumin/Globulin Ratio 1.0 Chlamy pneumoniae PCR Adenovirus (PCR) B. pertussis DNA (PCR) B.parapertussis DNA PCR Coronavirus OC43 (PCR) Coronavirus HKU1 (PCR) Coronavirus 229E (PCR) SARS-CoV-2 (PCR) Coronavirus NL63 (PCR) Human Metapneumovir PCR Influenza Type A (PCR) Influenza Type B (PCR) M. pneumoniae (PCR) Parainfluenza 1 (PCR) Parainfluenza 2 (PCR) Parainfluenza 3 (PCR) Parainfluenza 4 (PCR) RSV (PCR) Entero/Rhino (PCR) [facility] Medical History (Updated 05/16/21 @ 16:53 by Jose G Flores MD) COPD (chronic obstructive pulmonary disease) Leukemia Surgical History History of left knee replacement Social History household members: family Smoking Status: Former smoker Assessment & Plan Assessment & Plan narrative: PROBLEM LIST ?ACUTE HYPOXIC LIKELY ON CHRONIC RESPIRATORY FAILURE.? MULTIFACTORIAL ?ACUTE COPD EXACERBATION.? ON ABX AND? STEROID ?BILATERAL PNEUMONIA.? LIKELY COMMUNITY-ACQUIRED. ON? ANTIBIOTICS ?SEPSIS.? PRESENT ON ARRIVAL.? ON ABX ?LACTIC ACIDOSIS. ? ASSOCIATED WITH SEPSIS. ON ANTIBIOTICS ?LEUKOCYTOSIS.? SECONDARY TO INFECTIOUS PROCESS ?ELEVATED? LIVER ENZYMES.? LIKELY RELATED TO STATIN USE. IMPROVED ? POSSIBLE PULMONARY NODULES.? TO BE FOLLOWED AND 3-6 MONTHS? OUTPATIENT ?NONOBSTRUCTIVE RENAL STONES.? MONITOR ONLY FOR NOW ?POSSIBLE ADRENAL LESION.? AWARE COULD BE FOLLOWED PER OUTPATIENT PROVIDER WITH ADDITIONAL IMAGING AFTER DISCHARGE ?HYPERLIPIDEMIA PER HISTORY ?PLAN 05/18 PATIENT SHOWING SOME IMPROVEMENT OVERNIGHT CONTINUE CURRENT MANAGEMENT FOR NOW FOLLOW CULTURES CLOSELY NURSING TO COLLECT SPUTUM CULTURE ORDERED WILL CONSIDER DEESCALATING ANTIBIOTIC THERAPY ONCE INDICATED REPEAT CHEST X-RAY IN THE MORNING PHYSICAL THERAPY AND OCCUPATIONAL THERAPY TEAMS TO MOBILIZE MUCH TOLERATED PATIENT TO BE OUT OF BED AND IN CHAIR WITH WHICH EACH MEAL FALL PRECAUTION TO MAINTAIN AT ALL TIMES NURSING TO ENCOURAGE PATIENT TO USE INCENTIVE SPIROMETER DEVICE ORDERED MONITOR WITH DAILY LAB ADDITIONAL MANAGEMENT PER CLINICAL COURSE 05/17 ?STARTED ON OXYGEN THERAPY TO MAINTAIN OXYGEN SATURATION ABOVE 90% AT ALL TIME ?WILL ALSO STARTED ON ANTIBIOTICS ?ROCEPHIN, DOXY AND FLAGYL HAS BEEN ORDERED ?DUONEB TREATMENT ORDERED ? ALBUTEROL INHALERS NEEDED ?GET SPUTUM CULTURE ?INCENTIVE SPIROMETER ORDERED TO USE WHILE AWAKE ?FOR THE INCIDENTAL FINDING ON CT ?-? COULD BE FOLLOWED OUTPATIENT OR FURTHER WORKUP IF INDICATED ONLY DURING THIS HOSPITAL STAY ?REPEAT CHEST X-RAY AND ABG SERIALLY TO FOLLOW ?LACTATE WAS ONLY MILDLY ELEVATED ON ADMISSION ?WILL CONSIDER REPEATING LEVEL IF INDICATED CLINICALLY ON THE ?WILL NEED TO BE ELEVATED FOR HOME OXYGEN ON DISPOSITION ?AVOID? LIVER TOXIC SUBSTANCES AT THIS TIME ?WILL HOLD STATIN ?OKAY FOR ASPIRIN AT LOW DOSE FOR FEVER IF NEEDED ?DAILY LAB TO FOLLOW ?MONITOR INPUT AND OUTPUT CLOSELY ?MONITOR FOR C DIFF WELL WHILE ON ANTIBIOTIC THERAPY ? ADDITIONAL MANAGEMENT AND DISCHARGE PER CLINICAL COURSE ?PROGNOSIS GUARDED Time Spent With Patient Critical Care time: I spent a total of [] minutes of critical care time on this patient's care today; this time is exclusive of procedural time.
--- NOTE | 2021-05-17 15:44 | DIET.CONS ---
Dietary Consultation Note Admission Date: 05/16/2021 17:30 Assessment: 80 y/o F c acute hypoxic respiratory failure, acute COPD, and bilateral pneumonia has dietary consult for unintentional weight loss. BUN 18, Cr 0.37, GFR >60, + kidney stones per provider notes She reports her UBW is 117-119#. Recent weight today of 104.5# indicating a 12.5-14.5# loss or at least 10% significant unintentional weight loss over two weeks. EMR indicates a weight of 119.7# in September 2019. States weight loss is likely due to not eating much for the last two weeks. Reports hardly being able to eat due to feeling ill. Potentially increased energy needs with pneumonia and COPD exacerbation. Reports she was 135# 20 years ago, which she feels is a more healthy weight for her. Reports noticeable change in the way her clothes fit. Upon NFPE temporal scooping, boxed shoulders, and depressed interosseous present. Reports improved appetite this afternoon. Endorses usually eating two meals per day + snacks prior to feeling ill (L: tuna and salad, D: meat and veg, snacks: chips, nuts, blueberry loaf). Also use to make her own protein shake. Very amenable to ONS. Ht: 160.02 cm Wt: 47.5 kg BMI: 18.5 Last BM: 05/15/21 (05/16/21 18:50) MNA: 9 Sriram Score: 22 Diet: 05/16/21 Dinner Heart Healthy Diet Diet Modifications: Labs: RBC 3.27 X10^6/uL (4.0-5.2) L 05/17/21 05:45 Hgb 11.5 g/dL (12.0-16.0) L 05/17/21 05:45 Hct 34.2 % (36-46) L 05/17/21 05:45 Creatinine 0.37 mg/dL (0.52-1.04) L 05/17/21 05:45 Lactate 1.3 mmol/L (0.7-2.1) 05/16/21 15:44 NT-Pro-B Natriuret Pep 417 pg/mL (<450) 05/16/21 13:20 Nutrition Diagnosis: Severe acute protein calorie malnutrition r/t inadequate intake, increased energy needs aeb significant weight loss 10% or more over two weeks and physical signs of malnutrition Interventions: ONS daily to help support energy and protein needs EER: [id number] kcals (30-35 kcal/kg per BMI), 45-55g PRO (0.9-1.1 g/kg per elderly with kidney impairment and malnutrition) Monitoring/Evaluations: RDN f/u in 3-4 days Electronically Signed by: Linda Copeland 05/17/21 15:44 Clinical Dietitian [address] [address]
[2021-05-18] VITALS (11 sets, daily range): BP systolic 121–152; BP diastolic 50–69; PULSE 76–112; RESP 18–24; TEMP 36.6–37.1; O2SAT 93–98
[2021-05-18] MEDS: methylPREDNISolone 125 MG/2 ML VIAL 60 MG IV ×2 (01:32→09:34)
[2021-05-18 05:46] LABS: Add Manual Diff / Slide Review NO; Basophils Absolute Auto 0 /uL (0-100); Basophils Percent Auto 0.1 % (0-2); Eosinophils Absolute Auto 0 /uL (0-450); Hemoglobin 11.3 g/dL (12.0-16.0); Lymphocytes Absolute Auto 3800 /uL (1100-4500); Lymphocytes Percent Auto 25.6 % (25-40); Mean Corpuscular HGB Conc 33.2 % (30-36); Mean Corpuscular Hemoglobin 34.6 PG (26-34); Monocytes Absolute Auto 300 /uL (0-900); Monocytes Percent Auto 1.7 % (3-14); Neutrophils Absolute Auto 10800 /uL (1500-7000); Neutrophils Percent Auto 72.6 % (50-75); Platelet Count 254 X10^3/uL (150-400); Red Blood Cell Count 3.27 X10^6/uL (4.0-5.2); Red Cell Distribution Width 14.3 % (11.6-14.8); White Blood Cell Count 14.9 X10^3/uL (4.5-11.0)
[2021-05-18 06:00] LABS: Alanine Aminotransferase 71 IU/L (<35); Albumin 3.3 g/dL (3.5-5.0); Alkaline Phosphatase 99 U/L (38-126); Aspartate Aminotransferase 61 IU/L (14-36); BUN Creatinine Ratio 51.1 (6-22); Bilirubin Total 0.3 mg/dL (0.2-1.3); Blood Urea Nitrogen 23 mg/dL (7-17); Calcium 9.5 mg/dL (8.4-10.2); Carbon Dioxide 33 mmol/L (22-32); Chloride 104 mmol/L (98-107); Estimated Glomerular Filt Rate > 60.0 mL/min (>60); Globulin 3.4 g/dL (1.7-4.1); Glucose 142 mg/dL (80-110); HEMOLYSIS < 15 (0-50); Magnesium 1.7 mg/dL (1.6-2.3); Phosphorous 3.1 mg/dL (2.8-4.1); Potassium 4.1 mmol/L (3.4-5.1); Sodium 138 mmol/L (137-145); Total Protein 6.7 g/dL (6.3-8.2)
[2021-05-18] MEDS: SUCRALFATE 1 GM TABLET PO ×4 (06:22→20:07)
[2021-05-18] MEDS: DOXYCYCLINE 100 MG in SODIUM CHLORIDE 0.9% 100 ML IV ×2 (06:23→21:09)
[2021-05-18] MEDS: ALBUTEROL/IPRATROPIUM 3 ML AMPUL INH ×3 (07:08→19:31)
[2021-05-18] MEDS: BUDESONIDE 0.5 MG/2 ML NEB INH ×2 (07:08→19:31)
--- NOTE | 2021-05-18 08:14 | PM.PN.1 ---
Subjective Subjective Date Patient Seen: 05/18/21 Interval history: She is seen here today to follow-up her pneumonia and respiratory failure. There has been some trouble keeping IVs in but currently we have been able to replace each 1 that has come out. She tells me that she lives in [place] with her son. She says she feels better today. She remains very wheezy on exam. Her white blood count is 14.9 with a hemoglobin of 11.3 and platelets of 254. The MCV is high at 104. AST 61 with an ALT of 71, and albumin of 3.3 and glucose of 142 with a normal BMP. The blood pressure is 142/61. Exam Vital Signs (past 8 hours): - 05/18/21 00:35 05/18/21 04:00 05/18/21 07:11 Temperature 98.2 F 97.8 F Pulse Rate 88 76 86 Respiratory Rate 18 18 18 Blood Pressure 148/61 H 142/61 H Pulse Oximetry 93 98 94 Oxygen Delivery Method Nasal Cannula Oxygen Flow Rate 2 Narrative Exam Narrative: She is alert and oriented x3, in no apparent distress. Heart is regular rate and rhythm without murmur Extremities have no ankle edema Lungs have heavy wheezing bilaterally. Objective Labs Result Diagrams: 05/18/21 05:25 05/18/21 05:25 Labs: Laboratory Results - last 24 hr 05/18/21 05/18/21 05:25 05:25 WBC 14.9 H RBC 3.27 L Hgb 11.3 L Hct 34.0 L MCV 104.0 H MCH 34.6 H MCHC 33.2 RDW 14.3 Plt Count 254 Neut % (Auto) 72.6 Lymph % (Auto) 25.6 [place] % (Auto) 1.7 L Eos % (Auto) 0.0 L Baso % (Auto) 0.1 Neut # (Auto) 25175 H Lymph # (Auto) 3800 [place] # (Auto) 300 Eos # (Auto) 0 Baso # (Auto) 0 Sodium 138 Potassium 4.1 Chloride 104 Carbon Dioxide 33 H BUN 23 H Creatinine 0.45 L Estimated GFR > 60.0 BUN/Creatinine Ratio 51.1 H Glucose 142 H Calcium 9.5 Phosphorus 3.1 Magnesium 1.7 Total Bilirubin 0.3 AST 61 H ALT 71 H Alkaline Phosphatase 99 Total Protein 6.7 Albumin 3.3 L Globulin 3.4 Albumin/Globulin Ratio 1.0 [facility] Medical History (Updated 05/16/21 @ 16:53 by Jose G Flores MD) COPD (chronic obstructive pulmonary disease) Leukemia Surgical History History of left knee replacement Social History household members: family Smoking Status: Former smoker Assessment & Plan Assessment & Plan narrative: This is an 80-year-old female with COPD, hyperlipidemia hypertension and hypothyroidism who presented with acute on chronic respiratory failure, hypoxia, COPD exacerbation and bilateral pneumonia. Acute hypoxia, present on admission. Active. -COPD exacerbation and bilateral pneumonia. Improving ?ACUTE COPD EXACERBATION. Improving on Solu-Medrol. ?BILATERAL PNEUMONIA.? LIKELY COMMUNITY-ACQUIRED. Continue IV ceftriaxone, doxycycline and metronidazole. -no significant improvement on follow-up chest x-ray 05/18/2021 ?SEPSIS.? PRESENT ON ARRIVAL.? Continue IV ceftriaxone, doxycycline and metronidazole ?LACTIC ACIDOSIS. ? ASSOCIATED WITH SEPSIS.? ON ANTIBIOTICS ?ELEVATED? LIVER ENZYMES.? LIKELY RELATED TO STATIN USE.? IMPROVED ?POSSIBLE PULMONARY NODULES.? TO BE FOLLOWED with repeat CT at 3-6 MONTHS? OUTPATIENT ?NONOBSTRUCTIVE RENAL STONES.? MONITOR ONLY FOR NOW ?POSSIBLE ADRENAL LESION.? AWARE COULD? BE FOLLOWED PER OUTPATIENT PROVIDER WITH ADDITIONAL IMAGING AFTER DISCHARGE ?HYPERLIPIDEMIA PER HISTORY ?PLAN Continue broad-spectrum antibiotic coverage based on no change in chest x-ray on 05/18/2021 ?PHYSICAL THERAPY AND OCCUPATIONAL THERAPY TEAMS TO MOBILIZE MUCH TOLERATED ?PATIENT TO BE? OUT OF BED AND IN CHAIR WITH WHICH? EACH MEAL ?FALL PRECAUTION TO MAINTAIN AT ALL TIMES ?NURSING TO ENCOURAGE PATIENT TO USE INCENTIVE SPIROMETER DEVICE ORDERED ?MONITOR WITH DAILY LAB ?ADDITIONAL MANAGEMENT PER CLINICAL COURSE 05/17 ?STARTED ON OXYGEN THERAPY TO MAINTAIN OXYGEN SATURATION ABOVE 90% AT ALL TIME ?WILL ALSO STARTED ON ANTIBIOTICS ?ROCEPHIN, DOXY AND FLAGYL HAS BEEN ORDERED ?DUONEB TREATMENT ORDERED ? ALBUTEROL INHALERS NEEDED ?GET SPUTUM CULTURE ?INCENTIVE SPIROMETER ORDERED TO USE WHILE AWAKE ?FOR THE INCIDENTAL FINDING ON CT ?-? COULD BE FOLLOWED OUTPATIENT OR FURTHER WORKUP IF INDICATED ONLY DURING THIS HOSPITAL STAY ?REPEAT CHEST X-RAY AND ABG SERIALLY TO FOLLOW ?LACTATE WAS ONLY MILDLY ELEVATED ON ADMISSION ?WILL CONSIDER REPEATING LEVEL IF INDICATED CLINICALLY ON THE ?WILL NEED TO BE ELEVATED FOR HOME OXYGEN ON DISPOSITION ?AVOID? LIVER TOXIC SUBSTANCES AT THIS TIME ?WILL HOLD STATIN ?OKAY FOR ASPIRIN AT LOW DOSE FOR FEVER IF NEEDED ?DAILY LAB TO FOLLOW ?MONITOR INPUT AND OUTPUT CLOSELY ?MONITOR FOR C DIFF WELL WHILE ON ANTIBIOTIC THERAPY ? ADDITIONAL MANAGEMENT AND DISCHARGE PER CLINICAL COURSE ?PROGNOSIS GUARDED Time Spent With Patient Critical Care time: I spent a total of [] minutes of critical care time on this patient's care today; this time is exclusive of procedural time.
--- NOTE | 2021-05-18 08:30 | DI.RAD.S_ITS ---
PROCEDURE: XR CHEST 1V INDICATIONS: PNA ; COPD TECHNIQUE: One view of the chest was acquired. COMPARISON: [facility], CT, CT ANGIO CHEST PE PROTOCOL, 05/16/2021, 15:12. [facility], CR, XR CHEST 1V, 05/16/2021, 13:38. FINDINGS: Surgical changes and devices: Overlying EKG wires. Lungs and pleura: Right greater than left basilar consolidations not significantly changed. Trace right pleural effusion versus atelectasis. No pneumothorax. Mediastinum: Mediastinal contours appear normal. Heart size is normal. Bones and chest wall: No suspicious bony lesions. Remote right rib fracture. Degenerative changes of the shoulders and spine. Overlying soft tissues appear unremarkable. IMPRESSION: No significant interval change of right greater than left basilar opacities and questionable right-sided pleural effusion. Dictated by: Raphael Colin D.O. on 05/18/2021 at 7:46 Approved by: Raphael Colin D.O. on 05/18/2021 at 7:51
[2021-05-18] MEDS: ENOXAPARIN 40 MG/0.4 ML SYRINGE SUBCUT (09:34)
[2021-05-18] MEDS: BENZONATATE 100 MG CAPSULE 200 MG PO ×3 (09:35→20:07)
[2021-05-18] MEDS: ASCORBIC ACID 500 MG TABLET PO ×2 (09:35→20:07)
[2021-05-18] MEDS: LACTOBACILLUS ACIDOPHILUS TABLET 1 EACH PO ×3 (09:35→17:26)
[2021-05-18] MEDS: metroNIDAZOLE 500 MG TABLET PO ×3 (09:35→20:07)
[2021-05-18] MEDS: CHOLECALCIFEROL (VITAMIN D3) 1,000 UNIT TABLET 2000 UNIT PO (09:35)
[2021-05-18] MEDS: ASPIRIN EC 81 MG TABLET PO (09:35)
[2021-05-18] MEDS: FAMOTIDINE 20 MG TABLET 40 MG PO (09:35)
--- NOTE | 2021-05-18 12:19 | PT.IPTN ---
Current Diagnoses Pneumonia, unspecified organism (05/16/21) Physical Therapy Treatment Note M2 PT-IP Current Condition Start: 05/17/21 08:17 Freq: Status: Active Protocol: Document 05/17/21 10:07 MB (Rec: 05/17/21 11:06 MB [id number]) Physical Therapy Current Condition Current Condition Evaluation Date 05/17/21 Treatment Diagnosis SOB, SOTELO and decreased mobility Onset Date 2 weeks ago (over Jolene) M3 PT-IP Subjective Start: 05/17/21 08:17 Freq: Status: Active Protocol: Document 05/18/21 12:00 KS (Rec: 05/18/21 14:18 KS [id number]) Subjective Physical Therapy Visit Type Type Treatment Note Visit Start Time 12:00 Visit Stop Time 12:19 Total Visit Minutes 19 Number of ACCOUNT ASSOCIATE Visits 1 Physical Therapy Visit Comments Patient Comments Pt agreeable to working w/ therapy. Patient Goals To go home, she is open to services Therapy Pain Assessment Pain When Pain Assessed At Rest Pain Present Pain Present Denied Pain M4 PT-IP Mobility and Gait Start: 05/17/21 08:17 Freq: Status: Active Protocol: Document 05/18/21 12:00 KS (Rec: 05/18/21 14:18 KS [id number]) PT-Bed Mobility Assessment Supine to Sit Supine to Sit Independent,1 Person Assistance,Head of Bed Elevated,Bedrails Scooting Scooting to Edge of Bed Standby Assistance PT-Transfer Assessment Sit to and From Stand Sit to and from Stand Standby Assistance,1 Person Assistance,Use of Upper Extremities Equipment Transfer Assistive Device Gait Belt,Front Wheeled Walker Orthotic/Prosthetic Devices or Brace: No Transfers Transfer Destination Chair Transfer Technique Pt ambulated w/ FWW Transfer Ability Level of Assist Standby Assistance Comments Mobility Comments Pt I for sup<>sit and scooting EOB. Able to sit<>stand w/ FWW SBA. She then ambulated ~ 30 ft around room w/ FWW on 2LO2 and did desat to 91% and reported slight fatigue and lightheadedness. She then sat in chair and O2 recovered to 95% in 90 seconds. O2 decreased to 93% when pt talking but recovered quickly w/ cues for PLB. Pt left in chair w/ alarm on and all needs in reach. Gait Assessment Gait Gait Assistance Required: Standby Assistance,Contact Guard Assist Distance (Feet) 30 Assistive Devices Assistive Device Gait Belt,Front Wheeled Walker Orthotic/Prosthetic Devices or Brace: No Gait Deviations General Gait Pattern Decreased Stride Length, Decreased Feet Clearance, Flexed Trunk Factors Limiting Gait Function Factors Limiting Gait Function Decreased Activity Tolerance, Decreased Strength Comments Gait Comments Pt ambulated well w/ good use of FWW, slow pace, decreased stride and foot clearance. Ambulated ~30 ft before becoming fatgiued and SOB. PT-Balance Assessment Sitting Balance and Reactions Static Sitting Balance Ability Good Dynamic Sitting Balance Ability Good Standing Balance and Reactions Static Standing Balance Ability Good Dynamic Standing Balance Ability Good Device Used UE support for static and dynamic sitting and standing M5 PT-IP Objective Assessments Start: 05/17/21 08:17 Freq: Status: Active Protocol: Document 05/17/21 10:07 MB (Rec: 05/17/21 11:06 MB [id number]) Orientation Orientation/Cognition Level of Alertness Alert Orientation Name,Age,Birthday,Month,Date, Year,Day of Week,Place, Situation Language Function Ability No Deficits Noted Safety Awareness Decreased Safety Awareness Memory Description No Deficits Noted Comments Pt is pleasant and A&O. She reports making decisions at home not to use AD d/t vanity despite falls and respiratory symptoms. She also states she waited too long to come to the hospital. Gross Range of Motion Upper Extremity ROM Assessment Within Functional Limits Lower Extremity ROM Assessment Within Functional Limits Strength Upper Extremity Strength Assessment Within Functional Limits Lower Extremity Strength Assessment Within Functional Limits Comments Strength Comments Pt presents with B LE edema and her functional strength with MMT ankles and B SLR in the bed is normal for her age Coordination Assessment Assessment Coordination Comments Will defer UE comments to OT M6 PT-IP Treatment Start: 05/17/21 08:17 Freq: Status: Active Protocol: Document 05/18/21 12:00 KS (Rec: 05/18/21 14:18 KS [id number]) Physical Therapy Treatment Exercises Exercises Ankle Pumps,Gluteal Sets Education Education Provided Safety M7 PT-IP Assessment and Plan Start: 05/17/21 08:17 Freq: Status: Active Protocol: Document 05/18/21 12:00 KS (Rec: 05/18/21 14:18 KS [id number]) PT Summary Assessment and Plan Potential Rehabilitation Potential Fair Status of Condition at Evaluation Evolving Summary Impairments Balance,Bed Mobility,Transfers ,Gait,Activity Tolerance Assessment Summary Pt showed improved tolerance for activity today and was able to ambulate 30 ft w/ FWW however still became SOB and is limited by SOTELO. O2 desat to 91%, but recovered to 95% w/ cues for PLB. Although she is mobilizing well, due to desaturation w/ mobility and talking she is not safe to mobilize on her own at this time and will need to improve tolerance for activity. Goals Bed Mobility Goal Independent Transfer Goal Independent Gait Goal Independent Gait Distance 75 Days to Meet Goals 5 Frequency of Treatment Frequency Of Treatment Once a Day Treatment Plan Physical Therapy Treatment Plan Bed Mobility Training,Transfer Training,Gait Training, Therapeutic Exercise,Balance Retraining,Discharge Planning, Neuromuscular Re-ed Other Recommendations and Next Treatment Increase mobility Focus Precautions Other Precautions Decreasing sats and increasing HR with talking and mobility, fall risk Recommendations To Nursing Amount of Assist Needed Standby Assistance,1 Person Assist Discharge Recommendations PT Discharge Recommendations Home vs SNF Transportation Needs at Discharge Wheelchair/Cabulance
[2021-05-18] MEDS: MAGNESIUM CHLORIDE 64 MG TABLET 128 MG PO (12:25)
[2021-05-18] MEDS: cefTRIAXone 1,000 MG in SODIUM CHLORIDE 0.9% 100 ML 200 ML IV (14:51)
--- NOTE | 2021-05-18 15:28 | CM.IDA ---
Initial DCP Assessment Note Pt is an 80 yo female, resident of [place], arrives w/ SOB/Dyspnea and found to have bilateral pneumonia, on IV abx and steroids. PCP: Sommer Hicks Payer: ZOE/Miriam Reviewed chart, pt discussed in multidisciplinary rounds this morning. Medical management continues, patient may be here an additional 24-48 hrs. Assessment at bedside attempted multiple times and patient very busy w/ PT/OT/RT and Dietary consults Patient lives in a basement apt in family's home. Able to complete most ADLs indp. therapy team recommending home w/HH vs SNF d/t patient's low activity tolerance and shortness of breath. Patient is currently below functional baseline. Noted that patient was at [facility] in September 2020; if recommenced, maybe patient is agreeable to short SNF stay again to [facility] before return home w/ family? Need to discuss w/patient. Following closely for coordination of DCP; need to discuss in more detail w/patient and family next 24 hrs. Home w/ HH vs SNF MEHRDAD Mejia Discharge Planning/Care Management CM Discharge Assessment Start: 05/18/21 15:23 Freq: Status: Active Protocol: Document 05/18/21 15:24 ODALIS (Rec: 05/18/21 15:28 ODALIS [id number]) Discharge Planning Assessment Assigned Mortar Worker MEHRDAD Mobley DPOA/Assigned Designee Name ramirez Mckinnon Contact Information [phone] Advance Directives? Yes Advance Directives on File No History Provided By Medical Record Prior Living Arrangements House Household Members family Type of transporation used prior to Drives own vehicle admit Independent with ADL's Yes: MOD I Is patient alert and oriented? Yes Needs Assistance With Meal Prep,Home Chores / Shopping Patient/Family Preference Home with Home Health Comment Has good family support, likely return home w/HH per patient's request...unless functional status does not improve..then may benefit from short SNF stay before return home. Discharge Plan Home with Home Health Transportation Arrangement family if DC home Referrals Initiated None needed Additional Comment at this time
[2021-05-18] MEDS: LEVOTHYROXINE 50 MCG TABLET PO (17:26)
[2021-05-18] MEDS: SENNOSIDES 8.6 MG TABLET 17.2 MG PO (20:07)
[2021-05-19] VITALS (17 sets, daily range): BP systolic 116–160; BP diastolic 53–67; PULSE 65–105; RESP 18–22; TEMP 36.7–37.2; O2SAT 92–97
[2021-05-19] MEDS: methylPREDNISolone 125 MG/2 ML VIAL 60 MG IV ×2 (01:35→09:15)
[2021-05-19 05:51] LABS: Add Manual Diff / Slide Review NO; Basophils Absolute Auto 0 /uL (0-100); Eosinophils Absolute Auto 0 /uL (0-450); Hemoglobin 11.9 g/dL (12.0-16.0); Lymphocytes Absolute Auto 4600 /uL (1100-4500); Lymphocytes Percent Auto 32.3 % (25-40); Mean Corpuscular HGB Conc 33.1 % (30-36); Mean Corpuscular Hemoglobin 34.6 PG (26-34); Mean Corpuscular Volume 104.4 fL (80-100); Monocytes Absolute Auto 300 /uL (0-900); Neutrophils Absolute Auto 9300 /uL (1500-7000); Neutrophils Percent Auto 65.7 % (50-75); Platelet Count 264 X10^3/uL (150-400); Red Blood Cell Count 3.45 X10^6/uL (4.0-5.2); Red Cell Distribution Width 14.3 % (11.6-14.8); White Blood Cell Count 14.1 X10^3/uL (4.5-11.0)
[2021-05-19 06:01] LABS: Alanine Aminotransferase 62 IU/L (<35); Albumin 3.3 g/dL (3.5-5.0); Alkaline Phosphatase 122 U/L (38-126); Aspartate Aminotransferase 51 IU/L (14-36); BUN Creatinine Ratio 43.9 (6-22); Bilirubin Total 0.4 mg/dL (0.2-1.3); Blood Urea Nitrogen 25 mg/dL (7-17); Calcium 9.8 mg/dL (8.4-10.2); Carbon Dioxide 32 mmol/L (22-32); Chloride 104 mmol/L (98-107); Estimated Glomerular Filt Rate > 60.0 mL/min (>60); Globulin 3.3 g/dL (1.7-4.1); Glucose 134 mg/dL (80-110); HEMOLYSIS < 15 (0-50); Magnesium 1.7 mg/dL (1.6-2.3); Potassium 3.7 mmol/L (3.4-5.1); Sodium 140 mmol/L (137-145); Total Protein 6.6 g/dL (6.3-8.2)
[2021-05-19] MEDS: LEVOTHYROXINE 50 MCG TABLET PO (06:25)
[2021-05-19] MEDS: BUDESONIDE 0.5 MG/2 ML NEB INH ×2 (08:06→20:53)
[2021-05-19] MEDS: ALBUTEROL/IPRATROPIUM 3 ML AMPUL INH ×3 (08:06→20:53)
[2021-05-19] MEDS: SUCRALFATE 1 GM TABLET PO (08:54)
[2021-05-19] MEDS: LACTOBACILLUS ACIDOPHILUS TABLET 1 EACH PO ×3 (08:54→16:01)
[2021-05-19] MEDS: ASPIRIN EC 81 MG TABLET PO (08:57)
[2021-05-19] MEDS: ASCORBIC ACID 500 MG TABLET PO ×2 (08:57→22:01)
[2021-05-19] MEDS: BENZONATATE 100 MG CAPSULE 200 MG PO ×3 (08:57→22:01)
[2021-05-19] MEDS: ENOXAPARIN 40 MG/0.4 ML SYRINGE SUBCUT (08:57)
[2021-05-19] MEDS: CHOLECALCIFEROL (VITAMIN D3) 1,000 UNIT TABLET 2000 UNIT PO (08:57)
[2021-05-19] MEDS: FAMOTIDINE 20 MG TABLET PO (08:58)
[2021-05-19] MEDS: metroNIDAZOLE 500 MG TABLET PO ×2 (08:58→16:01)
[2021-05-19] MEDS: DOXYCYCLINE 100 MG in SODIUM CHLORIDE 0.9% 100 ML IV (09:15)
[2021-05-19] MEDS: MAGNESIUM CHLORIDE 64 MG TABLET 128 MG PO (09:15)
--- NOTE | 2021-05-19 10:55 | PT.IPTN ---
Current Diagnoses Pneumonia, unspecified organism (05/16/21) Physical Therapy Treatment Note M2 PT-IP Current Condition Start: 05/17/21 08:17 Freq: Status: Active Protocol: Document 05/17/21 10:07 MB (Rec: 05/17/21 11:06 MB [id number]) Physical Therapy Current Condition Current Condition Evaluation Date 05/17/21 Treatment Diagnosis SOB, SOTELO and decreased mobility Onset Date 2 weeks ago (over Jolene) M3 PT-IP Subjective Start: 05/17/21 08:17 Freq: Status: Active Protocol: Document 05/19/21 12:25 RBD (Rec: 05/19/21 12:47 RBD [id number]) Subjective Physical Therapy Visit Type Type Treatment Note Visit Start Time 10:43 Visit Stop Time 10:55 Total Visit Minutes 12 Number of EXECUTIVE HOUSEKEEPER Visits 2 Physical Therapy Visit Comments Patient Comments Pt states she was exhausted after yesterdays treatment. She will not get out of bed, however, is amenable to participate in exercises in bed. Patient Goals To go home, she is open to services Therapy Pain Assessment Pain When Pain Assessed At Rest Pain Present Pain Present Denied Pain M4 PT-IP Mobility and Gait Start: 05/17/21 08:17 Freq: Status: Active Protocol: Document 05/19/21 12:25 RBD (Rec: 05/19/21 12:47 RBD [id number]) PT-Bed Mobility Assessment Supine to Sit Supine to Sit Independent,1 Person Assistance,Head of Bed Elevated,Bedrails Scooting Scooting to Edge of Bed Standby Assistance PT-Transfer Assessment Comments Mobility Comments Pt in bed on 1.5 LO2 upon arrival and 02 at 96%. Performed ankle pumps x10 w/ slight decrease in O2 to 94%. I for scooting to EOB. Desat to 90% when sitting EOB denied lightheadedness or dizziness. O2 recovered to 96% w/ seated rest EOB. Performed knee extension x10 and seated marches x10, O2 95%. I from seated EOB to Supine. Performed glute sets x10 w/ 5 sec hold and heel slides x5, O2 93%. Re turned to 96% quickly following exercises. Pt left in bed w/ alarm on and all needs within reach. Gait Assessment Comments Gait Comments Pt refused to ambulate. M5 PT-IP Objective Assessments Start: 05/17/21 08:17 Freq: Status: Active Protocol: Document 05/17/21 10:07 MB (Rec: 05/17/21 11:06 MB [id number]) Orientation Orientation/Cognition Level of Alertness Alert Orientation Name,Age,Birthday,Month,Date, Year,Day of Week,Place, Situation Language Function Ability No Deficits Noted Safety Awareness Decreased Safety Awareness Memory Description No Deficits Noted Comments Pt is pleasant and A&O. She reports making decisions at home not to use AD d/t vanity despite falls and respiratory symptoms. She also states she waited too long to come to the hospital. Gross Range of Motion Upper Extremity ROM Assessment Within Functional Limits Lower Extremity ROM Assessment Within Functional Limits Strength Upper Extremity Strength Assessment Within Functional Limits Lower Extremity Strength Assessment Within Functional Limits Comments Strength Comments Pt presents with B LE edema and her functional strength with MMT ankles and B SLR in the bed is normal for her age Coordination Assessment Assessment Coordination Comments Will defer UE comments to OT M6 PT-IP Treatment Start: 05/17/21 08:17 Freq: Status: Active Protocol: Document 05/19/21 12:25 RBD (Rec: 05/19/21 12:47 RBD [id number]) Physical Therapy Treatment Exercises Exercises Ankle Pumps,Gluteal Sets,Heel Slides,Seated Knee Flexion/ Extension Education Education Provided Safety M7 PT-IP Assessment and Plan Start: 05/17/21 08:17 Freq: Status: Active Protocol: Document 05/19/21 12:25 RBD (Rec: 05/19/21 12:47 RBD [id number]) PT Summary Assessment and Plan Potential Rehabilitation Potential Fair Status of Condition at Evaluation Evolving Summary Impairments Balance,Bed Mobility,Transfers ,Gait,Activity Tolerance Assessment Summary Pt requireds cueing for PLB during and following activity. O2 level continue to fluctuate between 90% and 96% during activity. Her bed mobility is good, however, she continues to desaturate w/ mobility and talking. Mobilize on her own is unsafe at this time. Needs to improve tolerance for activity. Goals Bed Mobility Goal Independent Transfer Goal Independent Gait Goal Independent Gait Distance 75 Days to Meet Goals 5 Frequency of Treatment Frequency Of Treatment Once a Day Treatment Plan Physical Therapy Treatment Plan Bed Mobility Training,Transfer Training,Gait Training, Therapeutic Exercise,Balance Retraining,Discharge Planning, Neuromuscular Re-ed Other Recommendations and Next Treatment Increase mobility Focus Precautions Other Precautions Decreasing sats and increasing HR with talking and mobility, fall risk Recommendations To Nursing Amount of Assist Needed Standby Assistance,1 Person Assist Discharge Recommendations PT Discharge Recommendations Home vs SNF Transportation Needs at Discharge Wheelchair/Cabulance
[2021-05-19] MEDS: LOPERAMIDE 2 MG CAPSULE PO (11:54)
[2021-05-19] MEDS: cefTRIAXone 1,000 MG in SODIUM CHLORIDE 0.9% 100 ML 200 ML IV (15:56)
--- NOTE | 2021-05-19 17:38 | P.PN_ITS ---
Subjective Subjective Date Patient Seen: 05/19/21 Interval history: 80-year-old female admitted with pneumonia and hypoxic respiratory failure. Patient reports improvement in breathing. Currently on 1.5 L O2. Exam Vital Signs (past 8 hours): - 05/19/21 10:00 05/19/21 12:00 05/19/21 14:00 Temperature 98.2 F Pulse Rate 89 Respiratory Rate 18 Blood Pressure 131/60 Pulse Oximetry 93 93 93 05/19/21 15:34 05/19/21 16:00 Temperature 99.0 F Pulse Rate 79 91 H Respiratory Rate 20 18 Blood Pressure 130/53 L Pulse Oximetry 92 94 Oxygen Delivery Method Nasal Cannula Oxygen Flow Rate 0 Narrative Exam Narrative: General: Alert and pleasant NAD Lungs: Breathing nonlabored, right lower lobe crackles Heart: Regular rhythm Extremities: No edema Neuro: Well oriented, affect normal, nonfocal Objective Labs Result Diagrams: 05/19/21 05:26 05/19/21 05:26 Labs: Laboratory Results - last 24 hr 05/19/21 05/19/21 05:26 05:26 WBC 14.1 H RBC 3.45 L Hgb 11.9 L Hct 36.0 MCV 104.4 H MCH 34.6 H MCHC 33.1 RDW 14.3 Plt Count 264 Neut % (Auto) 65.7 Lymph % (Auto) 32.3 [place] % (Auto) 2.0 L Eos % (Auto) 0.0 L Baso % (Auto) 0.0 Neut # (Auto) 9300 H Lymph # (Auto) [address] [place] # (Auto) 300 Eos # (Auto) 0 Baso # (Auto) 0 Sodium 140 Potassium 3.7 Chloride 104 Carbon Dioxide 32 BUN 25 H Creatinine 0.57 Estimated GFR > 60.0 BUN/Creatinine Ratio 43.9 H Glucose 134 H Calcium 9.8 Phosphorus 3.0 Magnesium 1.7 Total Bilirubin 0.4 AST 51 H ALT 62 H Alkaline Phosphatase 122 Total Protein 6.6 Albumin 3.3 L Globulin 3.3 Albumin/Globulin Ratio 1.0 [facility] Medical History (Updated 05/16/21 @ 16:53 by Jose G Flores MD) COPD (chronic obstructive pulmonary disease) Leukemia Surgical History History of left knee replacement Social History household members: family Smoking Status: Former smoker Assessment & Plan Assessment & Plan narrative: 1. Acute hypoxic respiratory failure, resolved -secondary to bilateral pneumonia and COPD exacerbation -continue antibiotic management -titrate down O2 2. Bilateral pneumonia, bacterial -improving, continue Rocephin and p.o. doxycycline -elevated WBC likely due to IV steroids 3. Acute COPD exacerbation, resolving -continue inhalers -discontinue methylprednisolone 4. Sepsis, ruled out 5. Transaminitis mild -improving 6. Pulmonary nodules, RUL and RLL, indeterminate -incidental on CTA, radiologist recommends short-term follow-up CT 7. Nonobstructive left renal stone 8. Possible 3 cm left adrenal lesion -not well visualized on CTA 9. Hypothyroidism -continue routine thyroid replacement -check TSH 10. Macrocytic anemia, chronic -check TSH and B12 Patient with improving clinical course and likely ready for discharge home tomorrow Thursday. Time Spent With Patient Critical Care time: I spent a total of [] minutes of critical care time on this patient's care today; this time is exclusive of procedural time.
--- NOTE | 2021-05-19 18:53 | PC.NURSE ---
Patient A/O x 3. VSS. Remains 91-95% on 1L NC during the day. Patient would drop to 88% on RA with activity. Able to recover within a minute with added O2 NC once back to bed. Remains saline locked in R FA. IV patent, intact. Tele on. NSR/ST. SCD's on bilat. Patient endorses feeling much better today. Denies chest pain, FRAIRE, N/V. Voiding without complications. C/o diarrhea earlier this morning, patient requests imodium, administered. Patient endorses improvement through the day, maintains active BT x 4. Call light in reach, son is currently visiting. Encouraged patient to continue using the IS. Patient verbalized understanding.
[2021-05-19 18:54] LABS: Vitamin B12 > 1000 pg/mL (239-931)
[2021-05-19 19:18] LABS: TSH w/ Reflex to FT4 0.87 uIU/mL (0.47-4.68)
[2021-05-19] MEDS: SENNOSIDES 8.6 MG TABLET 17.2 MG PO (22:01)
[2021-05-19] MEDS: DOXYCYCLINE HYCLATE 100 MG TABLET PO (22:01)
[2021-05-20] VITALS (7 sets, daily range): BP systolic 140–162; BP diastolic 52–77; PULSE 78–92; RESP 14–20; TEMP 36.7–37.3; O2SAT 90–95
[2021-05-20] MEDS: LEVOTHYROXINE 50 MCG TABLET PO (05:54)
[2021-05-20 06:12] LABS: Magnesium 1.7 mg/dL (1.6-2.3)
[2021-05-20] MEDS: BUDESONIDE 0.5 MG/2 ML NEB INH (07:35)
--- NOTE | 2021-05-20 09:26 | PT-IP ANOTE ---
Attempted to see pt at 9:26 AM, pt refused PT stating she has no further needs and wants to rest before going home.
[2021-05-20] MEDS: CHOLECALCIFEROL (VITAMIN D3) 1,000 UNIT TABLET 2000 UNIT PO (10:06)
[2021-05-20] MEDS: ASCORBIC ACID 500 MG TABLET PO (10:07)
[2021-05-20] MEDS: DOXYCYCLINE HYCLATE 100 MG TABLET PO (10:07)
[2021-05-20] MEDS: ASPIRIN EC 81 MG TABLET PO (10:07)
[2021-05-20] MEDS: ENOXAPARIN 40 MG/0.4 ML SYRINGE SUBCUT (10:07)
[2021-05-20] MEDS: LACTOBACILLUS ACIDOPHILUS TABLET 1 EACH PO (10:07)
[2021-05-20] MEDS: BENZONATATE 100 MG CAPSULE 200 MG PO (10:07)
[2021-05-20] MEDS: SODIUM CHLORIDE 0.9% FLUSH 10 ML IV (10:08)
--- NOTE | 2021-05-20 10:20 | PM.DS.1 ---
History of Present Illness History of Present Illness Chief complaint: Flu,Chest Congestion,Cough Narrative: THIS IS A 80-YEAR-OLD FEMALE PAST MEDICAL HISTORY SIGNIFICANT FOR? TOBACCO? ABUSE, HYPERLIPIDEMIA, OSTEOPOROSIS WHO PRESENTED TO THE HOSPITAL WITH INCREASED SHORTNESS OF BREATH WELL COUGH CONGESTION OVER THE LAST COUPLE OF DAYS. ? DUE TO THE CURRENT GOING PANDEMIC, SHE WAS TESTED FOR COVID-19 BUT WAS NEGATIVE. ? SHE STATED THAT SHE IS BEING HAVING THOSE SYMPTOMS FOR LAST FEW DAYS.? AND HAD BEEN WORSENING.? HE DOES NOT HAVE A HISTORY OF COPD FORMALLY.? HOWEVER SHE IS IN [place]? AT HOME WAS STARTED? BY 1 OF HER OUTPATIENT PROVIDERS. ? SHE REPORTED INCREASING TEMPERATURE BUT? DENIES ANY CHILLS.? NO CHEST PAIN.? NO CHEST PRESSURE. ? SHE DENIED ANY SICK CONTACTS. ? COUGH REPORTED WAS MILDLY PRODUCTIVE.? SLIGHTLY YELLOWISH SHE SPUTUM REPORTED. ? NO BLOOD IN SPUTUM. ?IN THE ER ?ON ARRIVAL TO THE ER,? INITIAL LABS APPEARED TO SHOW PATIENT IS TO BE? HYPOXIC ?LABS IS SHOWING EVIDENCE OF SIGNIFICANT LEUKOCYTOSIS. ?A CT SCAN OF THE CHEST AT THIS TIME IS SHOWING BILATERAL PNEUMONIA WITH POSSIBLE NODULES WELL A ? NONOBSTRUCTING KIDNEY STONE. Discharge Providers Provider Date of admission: 05/16/21 17:30 Discharge Date: 05/20/21 Primary care physician: Sommer Hicks MD Consults: 05/16/21 17:51 Consult to Discharge Planning Routine Comment: Consult to Occupational Therapy Evaluate & Treat Comment: Physician Instructions: Evaluate and treat Consult to Physical Therapy Evaluate & Treat Comment: Physician Instructions: Evaluate and Treat 05/16/21 19:04 Consult to Dietitian, Adult Routine Comment: Reason For Exam: wt loss >6lbs 05/20/21 08:58 Consult to Respiratory Therapy Evaluate & Treat Comment: Physician Instructions: Evaluate and treat Discharge provider: Marquis Hyman MD Summary Hospital Course Discharge Diagnosis: 1. Bilateral pneumonia, presumed bacterial 2. Acute hypoxic respiratory failure 3. COPD with acute exacerbation 4. Mild transaminitis 5. Right lung pulmonary nodules 7. Possible 3 cm left adrenal lesion 8. Nonobstructive left renal stone 9. Macrocytic anemia with normal B12 and TSH 10. Hypothyroidism Patient presented with acute respiratory failure secondary to pneumonia with COPD exacerbation. Bilateral infiltrates noted on CT. She was treated with Rocephin and doxycycline as well as steroids and nebulizers. O2 sat is 90% on room air on day of discharge. Her cough and breathing is much better during course of admission. Also noted on CTA was nodule in right upper lobe and right lower lobe of lungs which requires short-term follow-up. Recommend three-month noncontrast CT. Also noted was possible 3 cm left adrenal lesion and nonobstructive left adrenal lesion. Patient is being discharged on cefdinir and Combivent Respimat in addition to her Dulera. Respiratory therapy will assess further for home O2. Status at Discharge Cognitive/behavioral status at discharge: oriented Functional status at discharge: independent ambulation Overall status at discharge: patient is progressing back to baseline Exam Vital Signs (past 8 hours): - 05/20/21 05:00 05/20/21 06:00 05/20/21 07:35 Temperature 98.3 F Pulse Rate 86 78 Respiratory Rate 20 14 Blood Pressure 140/69 Pulse Oximetry 95 95 94 05/20/21 08:42 05/20/21 08:53 Temperature 99.1 F Pulse Rate 84 Respiratory Rate 18 Blood Pressure 149/52 H Pulse Oximetry 90 L 90 L Oxygen Delivery Method Nasal Cannula Oxygen Flow Rate 0 Narrative Exam Narrative: General: Alert and very pleasant and cooperative female NAD Lungs: Breathing nonlabored, coarse crackles and mild wheeze lower lobes, much improved exam Heart: Regular rhythm Extremities: No edema Objective Labs Result Diagrams: 05/19/21 05:26 05/19/21 05:26 Labs: Laboratory Results - last 24 hr 05/19/21 05/19/21 05/20/21 05:26 05:26 05:30 Phosphorus 3.0 Magnesium 1.7 Vitamin B12 > 1000 H TSH 0.87 PFSH Medical History (Updated 05/16/21 @ 16:53 by Jose G Flores MD) COPD (chronic obstructive pulmonary disease) Leukemia Surgical History History of left knee replacement Social History household members: family Smoking Status: Former smoker Discharge Plan Discharge Plan Patient Disposition: Home Provider Discharge Comment: You were treated for pneumonia and COPD exacerbation. Finish antibiotic course by mouth. I've also prescribed an additional inhaler. Your CT scan showed nodules in the right lung and a possible left adrenal nodule. You should arrange for PCP to order a repeat non-contrast chest CT to re-evaluate these nodules to make sure not growing or changing. Discharge orders & Medications Prescriptions: New cefdinir 300 mg capsule 300 mg PO BID Qty: 14 0RF Combivent Respimat 20-100 mcg/actuation mist 1 puff inhalation QID Qty: 4 0RF Rx Instructions: space evenly during waking hours Continued clopidogrel 75 mg tablet 75 mg PO DAILY 0RF Label Comments: TAKE 1 TABLET BY MOUTH EVERY DAY losartan 25 mg tablet 25 mg PO BID 0RF Label Comments: TAKE 1 TABLET BY MOUTH TWICE DAILY cyanocobalamin (vitamin B-12) 1,000 mcg 1 tab PO DAILY 0RF Dulera 100-5 mcg/actuation HFA aerosol inhaler 100 inh INHALATION BID 0RF Label Comments: INHALE 2 PUFFS BY MOUTH TWICE DAILY atorvastatin 20 mg tablet 20 mg PO DAILY 0RF Label Comments: TAKE 1 TABLET BY MOUTH ONCE DAILY IN THE EVENING aspirin [Adult Low Dose Aspirin] 81 mg Tablet,Delayed Release (Dr/Ec) 81 mg PO DAILY 0RF cholecalciferol (vitamin D3) 2,000 units PO DAILY 0RF levothyroxine 50 mcg tablet 25 mcg PO DAILY 0RF Label Comments: TAKE 1 TABLET BY MOUTH ONCE DAILY Follow up/Referrals: Sommer Hicks MD [Primary Care Provider] - Diet/Activity/Treatments Diet: Regular Discharge Data Primary Care Provider: Sommer Hicks
--- NOTE | 2021-05-20 11:34 | OT.IP.TRT ---
Current Diagnoses Pneumonia, unspecified organism (05/16/21) Occupational Therapy Treatment Note M2 OT-IP Current Condition Start: 05/17/21 12:43 Freq: Status: Discharge Protocol: Document 05/17/21 10:05 [facility] (Rec: 05/17/21 13:36 [facility] [id number]) Occupational Therapy Current Condition Current Condition Evaluation Date 05/17/21 Treatment Diagnosis Bilateral PNA Diagnosis Onset Date 05/16/21 M3 OT- IP Subjective and Pain Start: 05/17/21 12:43 Freq: Status: Discharge Protocol: Document 05/20/21 11:20 [facility] (Rec: 05/20/21 12:15 [facility] [id number]) OT- Subjective Occupational Therapy Visit Type Type Treatment Note Visit Start Time 11:20 Visit Stop Time 11:34 Total Visit Minutes 14 Occupational Therapy Visit Comments Patient Comments Pt wanting to use the bathroom . Patient/Caregiver Goals TO go home. OT Pain Assessment Pain When Pain Assessed At Rest Pain Present Pain Present Denied Pain M4 OT- IP ADL's Start: 05/17/21 12:43 Freq: Status: Discharge Protocol: Document 05/20/21 11:20 [facility] (Rec: 05/20/21 12:15 [facility] [id number]) OT ADL-Toileting General Evaluation Toileting Ability Independent Comments OT Toileting Comments Distant SBA for cord management needs, one cue for safety to be sure to hold the cord in her hand so that she knows where it is. M5 OT- IP IADL's Start: 05/17/21 12:43 Freq: Status: Discharge Protocol: Document 05/17/21 10:05 [facility] (Rec: 05/17/21 13:36 [facility] [id number]) OT-Instrumental Activities of Daily Living Home Safety Awareness Awareness of Need for Assistance at Home Good Awareness Ability to Problem Solve Emergency Able to Problem Solve Situations Meal Preparation Meal Preparation Caregiver Provides Assist Licensed Practical Vocational Nurse Licensed Practical Vocational Nurse Caregiver Provides Assist M6 OT- IP Functional Cognition Start: 05/17/21 12:43 Freq: Status: Discharge Protocol: Document 05/20/21 11:20 [facility] (Rec: 05/20/21 12:15 [facility] [id number]) Cognitive Factors Limiting Selfcare Function Cognitive Comments Cognitive Assessment Comments After initial vc pt able to safely manage the O2 tubing with increased time. M7 OT- IP Mobility and Balance Start: 05/17/21 12:43 Freq: Status: Discharge Protocol: Document 05/20/21 11:20 [facility] (Rec: 05/20/21 12:15 [facility] [id number]) OT-Transfer Assessment Sit to and From Stand Sit to and from Stand Independent Transfers Transfer Ability Standby Assistance Technique Transfer Destination Bed,Toilet Transfer Technique Stand Step Pivot Devices Transfer Assistive Devices Gait Belt,Front Wheeled Walker Comments Mobility Comments Distant SBA due to O2 tubing management needs. Pt aware that she will need assist to help manage the O2 tank at home initially as pt having to use the FWW for balance. OT- Gait Assessment Comments Gait Ability Comments distant SBA mainly for occasional assist with O2 tubing needs OT- Balance Assessment Sitting Balance and Reactions Static Sitting Balance Ability Normal Dynamic Sitting Balance Ability Good Standing Balance and Reactions Static Standing Balance Ability Good M8 OT- IP Objective Assessments Start: 05/17/21 12:43 Freq: Status: Discharge Protocol: Document 05/17/21 10:05 [facility] (Rec: 05/17/21 13:36 [facility] [id number]) OT Strength Comments Strength Comments WFL for her needs. OT- Coordination Assessment Comments Coordination Comments Arthritic changes in her hands . OT-Muscle Tone Assessment Muscle Tone WNL Yes M9 OT- IP Assessment and Plan Start: 05/17/21 12:43 Freq: Status: Discharge Protocol: Document 05/20/21 11:20 [facility] (Rec: 05/20/21 12:15 [facility] [id number]) OT Summary Assessment and Plan Potential Rehabilitation Potential Good Analytic Complexity at Evaluation Moderate Summary OT Impairments Strength,Balance,Functional Mobility,Grooming,Dressing, Toileting,Bathing,Toilet Transfers,Shower Transfers, Activity Tolerance Progress Towards Goals Progressing Toward Goals Assessment Summary Pt going home and to have Life [employer] and her daughter at home to assist. Pt's daughter works from home. Pt will need assist especially for O2 tubing at night. Suggested pt to get a BSC for night use to decrease change of getting the O2 tubing tangled. Goals Self-Feeding Goal Independent Grooming Goal Independent Dressing Goal Independent Toileting Goal Independent Bathing Goal Independent Toilet Transfer Goal Independent Shower Transfer Goal Independent Days to Meet Goals 7 Frequency of Treatment Frequency Of Treatment Once a Day Treatment Plan OT Treatment Plan ADL Training,Functional Mobility,Patient/Family Education,Discharge Planning Discharge Recommendations OT Discharge Recommendations Home with 01/12 Assist Available,Home Health Home Equipment Needs BSC Transportation Needs at Discharge Private Vehicle
--- NOTE | 2021-05-20 12:03 | PC.NURSE ---
Discharge order received and patient eager to go home today. Seen by RT and set up for home oxygen use. Discharge handouts and instructions reviewed with patient and she states understanding and has no further quetsions or concenrs at this time. IV dc'd intact. Prescriptions sent electronically to pharmacy. Patient wants to call to schedule her own follow up appointment with PCP. Escorted out via wheelchair with all her belongings by LIBRARY ASSISTANT to discharge home with her son.
== END 2021-05-20 12:06 | disposition home or self-care (01) | DRG 193 ==
LOC: ED 14:03 → AC 17:31
PROVIDERS: Internal Medicine; Admitting Provider Hospitalist; Emergency Provider Emergency Medicine; Family Provider Internal Medicine; PCP Internal Medicine; Referring Provider Emergency Medicine; Visit Provider Hospitalist
DX: J15.9 Unspecified bacterial pneumonia (principal); J96.01 Acute respiratory failure with hypoxia; E43 Unspecified severe protein-calorie malnutrition; J44.1 Chronic obstructive pulmonary disease with (acute) exacerbation; Z68.1 Body mass index [BMI] 19.9 or less, adult; R74.01 Elevation of levels of liver transaminase levels; E03.9 Hypothyroidism, unspecified; I10 Essential (primary) hypertension; E78.5 Hyperlipidemia, unspecified; Z87.891 Personal history of nicotine dependence; Z20.822 Contact with and (suspected) exposure to COVID-19
CPT/HCPCS: 36415; 36600; 71045; 71275; 80053; 82550; 82607; 82805; 83605; 83735; 83880; 84100; 84145; 84443; 84484; 85025; 85379; 87040; 87633; 87635; 93005; 93010; 94618; 94640; 94760; 96361; 96365; 96367; 96375; 97110; 97161; 97166; 97530; 97535; 99285; C9803; A9270; J0696; J1650; J2930; Q9967

== ENCOUNTER 2021-06-19 14:17 | Emergency (ER) | payer MEDICARE, OTHER, SELFPAY ==
[2021-05-16 18:50] VITALS: BMI 18.5
[2021-06-19] VITALS (17 sets, daily range): BP systolic 113–166; BP diastolic 65–94; PULSE 78–126; RESP 18–25; TEMP 36.8; O2SAT 92–98; BMI 19.3
--- NOTE | 2021-06-19 14:30 | ED_ITS ---
HPI - SOB/Dyspnea General Chief Complaint: Arrhythmia/Palpitations Stated Complaint: tachycardia Time Seen by Provider: 06/19/21 14:28 History of Present Illness HPI Narrative: 80-year-old female former smoker with history of COPD, hyperlipidemia, tachycardia presents with her son and a chief complaint of persistent tachycardia at her primary care office. She is in the process of establishing with a new primary care provider and had noted that her heart rate was elevated into the 120s and had stayed there. She denies any chest pain and states that she is frequently short of breath but no worse than normal. She denies any fever chills. She has no runny nose, sore throat or cough. She denies nausea, vomiting or diarrhea. She denies any exertional symptoms. She denies any c hange in medication or diet. She was recently hospitalized for acute hypoxemic respiratory failure. She is in good spirits and at her baseline otherwise Related Data Home Medications Medication Instructions Recorded Confirmed aspirin 81 mg tablet,delayed 81 mg PO DAILY 09/16/19 05/16/21 release (Adult Low Dose Aspirin) atorvastatin 20 mg tablet 20 mg PO DAILY 09/16/19 05/16/21 cholecalciferol (vitamin D3) 2,000 units PO DAILY 09/16/19 05/16/21 levothyroxine 50 mcg tablet 25 mcg PO DAILY 09/16/19 05/16/21 mometasone-formoterol HFA 100 100 inh INHALATION BID 09/16/19 05/16/21 mcg-5 mcg/actuation aerosol inhaler (Dulera) clopidogrel 75 mg tablet 75 mg PO DAILY 05/16/21 05/16/21 cyanocobalamin (vitamin B-12) 1 tab PO DAILY 05/16/21 05/16/21 losartan 25 mg tablet 25 mg PO BID 05/16/21 05/16/21 Previous Rx's Medication Instructions Recorded cefdinir 300 mg capsule 300 mg PO BID #14 cap 05/20/21 ipratropium 20 mcg-albuterol 100 1 puff INHALATION QID #4 g 05/20/21 mcg/actuation mist for inhalation (Combivent Respimat) doxycycline hyclate 100 mg tablet 100 mg PO BID #20 tab 06/19/21 Allergies Allergy/AdvReac Type Severity Reaction Status Date / Time bee venom protein (honey bee) Allergy Severe Anaphylaxis Verified 06/19/21 14:33 lidocaine [From XYLOCAINE] Allergy Severe ANAPHYLAXIS Verified 06/19/21 14:33 Review of Systems Review of Systems Narrative: GENERAL: Denies chills, fatigue, malaise, fever, sweats. HEENT: Denies sinus pain, ear pain, sore throat, difficulty swallowing, dizziness. RESPIRATORY: See HPI CARDIOVASCULAR: See HPI GASTROINTESTINAL: Denies nausea, vomiting, abdominal pain, diarrhea, const ipation, melena. : Denies dysuria, frequency, incontinence, hematuria, urinary retention. MUSCULOSKELETAL: denies weakness, joint pain, or bony pain SKIN: Denies rash, skin lesions, or other NEUROLOGIC: Denies weakness, headache, numbness, change in speech, confusion, seizures, incoordination. PSYCHIATRIC: No concerning psychosocial issues. 12 point review of systems is negative except for those stated above Patient History Medical History COPD (chronic obstructive pulmonary disease) Leukemia Surgical History History of left knee replacement Social History household members: family Smoking Status: Former smoker Smoking Status: Former smoker alcohol intake frequency: holidays/special occasions only Alcohol type: hard liquor Substance Use Type: does not use Exam Narrative Exam Narrative: GENERAL: [80] year old patient appears stated age. Well-developed patient, in mild distress. HEAD: Atraumatic. Normocephalic. EYES: Pupils equal round and reactive. Extraocular motions intact. No scleral icterus. No injection or drainage. ENT: Nose without bleeding, purulent drainage. Throat without erythema, tonsillar hypertrophy or exudate. Airway patent. NECK: Trachea midline. Non tender CARDIOVASCULAR: Tachycardic but regular rhythm without murmurs, gallops, or rubs. RESPIRATORY: Prolonged expiratory phase with decreased breath sounds throughout, no wheezes, rales or rhonchi GASTROINTESTINAL: Abdomen soft, non-tender, nondistended. EXTREMITIES: No edema or joint tenderness. BACK: Nontender without deformity or crepitance. No flank tenderness. NEURO: AOx3. SKIN: No rash or erythema of visible areas Initial Vital Signs Initial Vital Signs: Vital Signs Pulse Rate 78 06/19/21 14:26 Pulse Oximetry 92 06/19/21 14:26 Course Orders Ordered: Discontinued Medications Sodium Chloride (Normal Saline 0.9%) 1,000 mls @ 150 mls/hr IV CONT KOREY Last Infusion: 06/19/21 18:41 Dose: 0 mls/hr Documented by: Admin: 06/19/21 14:57 Dose: 150 mls/hr Documented by: ZOILA Sodium Chloride (Normal Saline 0.9%) 500 mls @ 1,000 mls/hr IV BOLUS ONE Stop: 06/19/21 16:21 Last Infusion: 06/19/21 17:11 Dose: 0 mls/hr Documented by: Admin: 06/19/21 16:17 Dose: 1,000 mls/hr Documented by: ZOILA Reevaluation(s) Reevaluation #1: Patient feeling quite well, after above-stated therapies her heart rate is in the upper 80s, it does increase some with ambulation but she does not complain of shortness of breath and does not developed hypoxemia with an ambulatory pulse ox trial Vital Signs Vital signs: Vital Signs - 8 hr 06/19/21 14:26 06/19/21 14:27 06/19/21 14:30 Temperature 98.2 F Pulse Rate 78 126 H 120 H Respiratory Rate 20 Blood Pressure 113/94 H 164/78 H Pulse Oximetry 92 94 94 06/19/21 14:31 06/19/21 15:00 06/19/21 15:30 Temperature Pulse Rate 116 H 96 H 98 H Respiratory Rate 20 18 18 Blood Pressure 164/78 H 143/67 H 154/69 H Pulse Oximetry 95 95 95 06/19/21 15:47 06/19/21 16:19 06/19/21 16:27 Temperature Pulse Rate 92 H 107 H 93 H Respiratory Rate 18 18 Blood Pressure 154/69 H 154/69 H Pulse Oximetry 98 96 98 06/19/21 16:30 06/19/21 17:00 06/19/21 17:30 Temperature Pulse Rate 89 85 83 Respiratory Rate 19 21 21 Blood Pressure Pulse Oximetry 97 97 98 06/19/21 17:56 06/19/21 18:00 06/19/21 18:13 Temperature Pulse Rate 100 H 90 86 Respiratory Rate 20 20 18 Blood Pressure 136/93 H 152/65 H Pulse Oximetry 95 97 96 06/19/21 18:30 06/19/21 18:39 Temperature Pulse Rate 91 H 84 Respiratory Rate 18 Blood Pressure 166/69 H Pulse Oximetry 97 97 MDM - SOB/Dyspnea Lab Data Result diagrams: 06/19/21 14:48 06/19/21 14:48 Labs: Lab Results 06/19/21 06/19/21 06/19/21 Range/Units 14:44 14:48 14:48 WBC 12.5 H (4.5-11.0) X10^3/uL RBC 3.42 L (4.0-5.2) X10^6/uL Hgb 12.0 (12.0-16.0) g/dL Hct 35.8 L (36-46) % MCV 104.8 H (80-100) fL MCH 34.9 H (26-34) PG MCHC 33.4 (30-36) % RDW 15.5 H (11.6-14.8) % Plt Count 341 (150-400) X10^3/uL Neut % (Auto) 57.7 (50-75) % Lymph % (Auto) 38.9 (25-40) % Thomas % (Auto) 2.6 L (3-14) % Eos % (Auto) 0.6 L (2-4) % Baso % (Auto) 0.2 (0-2) % Neut # (Auto) 7200 H (1765-5406) /uL Lymph # (Auto) 4900 H (9042-3186) /uL Thomas # (Auto) 300 (0-900) /uL Eos # (Auto) 100 (0-450) /uL Baso # (Auto) 0 (0-100) /uL D-Dimer 1526 H (<230) ng/mL Sodium 140 (137-145) mmol/L Potassium 3.6 (3.4-5.1) mmol/L Chloride 103 (98-107) mmol/L Carbon Dioxide 32 (22-32) mmol/L BUN 16 (7-17) mg/dL Creatinine 0.64 (0.52-1.04) mg/dL Estimated GFR > 60.0 (>60) mL/min BUN/Creatinine Ratio 25.0 H (6-22) Glucose 111 H (80-110) mg/dL Calcium 11.7 H (8.4-10.2) mg/dL Total Bilirubin 0.9 (0.2-1.3) mg/dL AST 40 H (14-36) IU/L ALT 22 (<35) IU/L Alkaline Phosphatase 90 (38-126) U/L Total Creatine Kinase 46 (30-135) U/L CK-MB (CK-2) TNP CK-MB (CK-2) Rel Index TNP Troponin I < 0.012 (0.01-0.034) ng/mL NT-Pro-B Natriuret Pep 356 (<450) pg/mL Total Protein 7.6 (6.3-8.2) g/dL Albumin 4.1 (3.5-5.0) g/dL Globulin 3.5 (1.7-4.1) g/dL Albumin/Globulin Ratio 1.2 (1.0-2.8) Lipase 96 (23-300) U/L Urine Dip Bedside Urine Glucose Negative Bedside Urine Bilirubin - Negative Bedside Urine Ketone - Negative Urine Specific Hestand 1.015 Bedside Urine Occult Blood - Negative Bedside Urine pH 8 Bedside Urine Protein - Negative Bedside Urine Urobilinogen - Negative Bedside Urine Nitrite - Negative Bedside Urine Leukocytes - Negative Esterase Imaging Data CT scan - chest: Radiologist's Impression: Launch?[place] [address] CT Scan Report Signed Patient: Francisca Rdz MR#: [id number] : 1940 Acct:[id number] Age/Sex: 80 / F Date of Service: 06/19/21 Loc: ED Accession Number: [id number] ?? Procedure: CT angio chest PE protocol Ordering Provider: Arsen Aparicio D.O. PROCEDURE:? CT ANGIO CHEST PE PROTOCOL ? INDICATIONS:? SOB< tachycardia, critical dimer ? TECHNIQUE:? After the administration of intravenous contrast, 2 mm thick sections acquired from the pulmonary apices to the posterior costophrenic angles.? 3-dimensional maximum intensity projection (MIP) coronal and sagittal reformats were then acquired through the thorax.? For radiation dose reduction, the following was used:? automated exposure contr ol, adjustment of mA and/or kV according to patient size.? ? COMPARISON:? [facility], CT, CT ANGIO CHEST PE PROTOCOL, 05/16/2021, 15:12. ? FINDINGS:? Image quality:? Excellent.? ? Pulmonary arteries:? Pulmonary arteries are normal in size, and demonstrate no intraluminal filling defects to suggest central pulmonary embolism.? ? Lungs and pleura:? Patchy and confluent areas of nodular opacity are present within the lungs bilaterally most severe in the right base.? Overall appearance is relati vely stable compared to prior exam.? Emphysematous changes are present. ? Mediastinum:? Heart size is enlarged, without pericardial effusion.? Right hilar lymph node is present measuring 1.8 cm, unchanged.? Thoracic aorta is normal in caliber and enhancement.? Esophagus is normal in caliber, without hiatal hernia.? ? Bones and chest wall:? No suspicious bony lesions.? Ribs and thoracic spine appear intact throughout.? Thyroid gland demonstrates low-attenuation foci, unchanged.? No axillary or supraclavicular adenopathy.? ? Abdomen:? Left adrenal mass, nonobstructing left renal calculus, hepatic cysts and left renal cyst are stable.? Otherwise, visualized upper abdominal solid organs appear normal in the early arterial phase of enhancement.? ? IMPRESSION:? ? Confluent and focal nodular opacities within the lungs bilaterally unchanged compared to prior exam.? Overall appearance is most suspicious for persistent infection or inflammation. ? However, areas of nodularity can also be consistent with malignancy.? Recommend short interval imaging follow-up and if failure to improve, further evaluation with potential PET scan or biopsy is recommended.? ? No pulmonary embolism. ? Unchanged right hilar lymph node.? While this could be reactive in nature, as noted above, if areas of nodularity are consistent with malignancy, this could represent metastatic disease. ? Unchanged left adrenal nodule.? As previously identified, this is considered indeterminate on the basis of this exam and further evaluation with CT with adrenal protocol is recommended as indicated.? ? Dictated by: Brook Mark M.D. on 06/19/2021 at 16:56 ? ? Approved by: Brook Mark M.D. on 06/19/2021 at 17:02 ? [facility] Narrative Medical decision making narrative: Patient with reassuring history and physical exam. She is well-appearing and in no distress. She does have some tachycardia initially, EKG shows that she is in a sinus tachycardia. Her D-dimer continues to be elevated therefore a CTA is ordered which demonstrates no pulmonary embolism. She does have some abnormal findings in the bases of her lungs which could be prolonged infectious versus inflammatory. For this reason, given her history of smoking she is put on coverage for an atypical pneumonia and encouraged to follow closely with her primary care provider. She has been given extensive return precautions and both she and her son understand and agree with the plan and have had their questions answered to their apparent satisfaction Discharge Plan Departure Patient Disposition: Home Clinical Impression: Atypical pneumonia, Tachycardia, Acute dehydration Instructions: DI for Atypical Pneumonia Activity Restrictions/Additional Instructions: *You have been diagnosed with [atypical pneumonia, mild dehydration. Thankfully your labs, imaging, response therapies are very reassuring. *What to do: *Please continue to take your regular medications as directed. [ x] New medication prescriptions sent to your pharmacy: [[facility] in [place] ] [ ] New medication written as a paper prescription [ ] No new medications given *Please follow up with your primary care provider in 2-3 days, call for an appointment. Let them know you were seen in the Emergency Department and that we ask that you be seen in follow up. We will electronically transmit a record of today's note if your PCP is in our system *If you do not have a primary care provider please contact the [facility] Resource line at [phone]. They will ask some questions about your medical history and help get you set up with a doctor in the community. *Return to Emergency Department if you should have any new, worsening or concerning symptoms, such as [fever greater than 101 F, shaking chills, worsening pain, persistent vomiting or other bothersome symptoms] Prescriptions: New doxycycline hyclate 100 mg tablet 100 mg PO BID Qty: 20 0RF No Action clopidogrel 75 mg tablet 75 mg PO DAILY 0RF Label Comments: TAKE 1 TABLET BY MOUTH EVERY DAY losartan 25 mg tablet 25 mg PO BID 0RF Label Comments: TAKE 1 TABLET BY MOUTH TWICE DAILY cyanocobalamin (vitamin B-12) 1,000 mcg 1 tab PO DAILY 0RF cefdinir 300 mg capsule 300 mg PO BID Qty: 14 0RF Combivent Respimat 20-100 mcg/actuation mist 1 puff inhalation QID Qty: 4 0RF Rx Instructions: space evenly during waking hours Dulera 100-5 mcg/actuation HFA aerosol inhaler 100 inh INHALATION BID 0RF Label Comments: INHALE 2 PUFFS BY MOUTH TWICE DAILY atorvastatin 20 mg tablet 20 mg PO DAILY 0RF Label Comments: TAKE 1 TABLET BY MOUTH ONCE DAILY IN THE EVENING aspirin [Adult Low Dose Aspirin] 81 mg Tablet,Delayed Release (Dr/Ec) 81 mg PO DAILY 0RF cholecalciferol (vitamin D3) 2,000 units PO DAILY 0RF levothyroxine 50 mcg tablet 25 mcg PO DAILY 0RF Label Comments: TAKE 1 TABLET BY MOUTH ONCE DAILY Referrals: Kelly Pradhan PA-C [Primary Care Provider] -
--- NOTE | 2021-06-19 14:30 | DI.RAD.S_ITS ---
PROCEDURE: XR CHEST 1V INDICATIONS: dyspnea TECHNIQUE: One view of the chest was acquired. COMPARISON: [facility], CR, XR CHEST 1V, 05/18/2021, 8:35. FINDINGS: Surgical changes and devices: None. Lungs and pleura: Mildly progressive appearance of patchy right basilar opacity as well as blunting of the costophrenic angle. Mediastinum: Mediastinal contours appear normal. Heart size is normal. Bones and chest wall: No suspicious bony lesions. Overlying soft tissues appear unremarkable. IMPRESSION: Slightly worse appearance of right basilar opacities suggestive of pneumonia. Trace effusion is present, slightly decreased. Dictated by: Brook Mark M.D. on 06/19/2021 at 15:13 Approved by: Brook Mark M.D. on 06/19/2021 at 15:14
[2021-06-19] MEDS: SODIUM CHLORIDE 0.9% 1,000 ML 150 ML IV (14:57)
[2021-06-19 15:10] LABS: Add Manual Diff / Slide Review NO; Basophils Absolute Auto 0 /uL (0-100); Basophils Percent Auto 0.2 % (0-2); Eosinophils Absolute Auto 100 /uL (0-450); Eosinophils Percent Auto 0.6 % (2-4); Hematocrit 35.8 % (36-46); Lymphocytes Absolute Auto 4900 /uL (1100-4500); Lymphocytes Percent Auto 38.9 % (25-40); Mean Corpuscular HGB Conc 33.4 % (30-36); Mean Corpuscular Hemoglobin 34.9 PG (26-34); Mean Corpuscular Volume 104.8 fL (80-100); Monocytes Absolute Auto 300 /uL (0-900); Monocytes Percent Auto 2.6 % (3-14); Neutrophils Absolute Auto 7200 /uL (1500-7000); Neutrophils Percent Auto 57.7 % (50-75); Platelet Count 341 X10^3/uL (150-400); Red Blood Cell Count 3.42 X10^6/uL (4.0-5.2); Red Cell Distribution Width 15.5 % (11.6-14.8); White Blood Cell Count 12.5 X10^3/uL (4.5-11.0)
[2021-06-19 15:12] LABS: Alanine Aminotransferase 22 IU/L (<35); Albumin 4.1 g/dL (3.5-5.0); Albumin Globulin Ratio 1.2 (1.0-2.8); Alkaline Phosphatase 90 U/L (38-126); Aspartate Aminotransferase 40 IU/L (14-36); Bilirubin Total 0.9 mg/dL (0.2-1.3); Blood Urea Nitrogen 16 mg/dL (7-17); Calcium 11.7 mg/dL (8.4-10.2); Carbon Dioxide 32 mmol/L (22-32); Chloride 103 mmol/L (98-107); Creatine Kinase 46 U/L (30-135); Estimated Glomerular Filt Rate > 60.0 mL/min (>60); Globulin 3.5 g/dL (1.7-4.1); Glucose 111 mg/dL (80-110); HEMOLYSIS < 15 (0-50); Lipase 96 U/L (23-300); Potassium 3.6 mmol/L (3.4-5.1); Sodium 140 mmol/L (137-145); Total Protein 7.6 g/dL (6.3-8.2)
[2021-06-19 15:24] LABS: NT-proBNP (BNP-Adult 18+) 356 pg/mL (<450); Troponin I < 0.012 ng/mL (0.01-0.034)
[2021-06-19 15:41] LABS: D Dimer 1526 ng/mL (<230)
--- NOTE | 2021-06-19 15:52 | DI.CT.S_ITS ---
PROCEDURE: CT ANGIO CHEST PE PROTOCOL INDICATIONS: SOB< tachycardia, critical dimer TECHNIQUE: After the administration of intravenous contrast, 2 mm thick sections acquired from the pulmonary apices to the posterior costophrenic angles. 3-dimensional maximum intensity projection (MIP) coronal and sagittal reformats were then acquired through the thorax. For radiation dose reduction, the following was used: automated exposure control, adjustment of mA and/or kV according to patient size. COMPARISON: [facility], CT, CT ANGIO CHEST PE PROTOCOL, 05/16/2021, 15:12. FINDINGS: Image quality: Excellent. Pulmonary arteries: Pulmonary arteries are normal in size, and demonstrate no intraluminal filling defects to suggest central pulmonary embolism. Lungs and pleura: Patchy and confluent areas of nodular opacity are present within the lungs bilaterally most severe in the right base. Overall appearance is relatively stable compared to prior exam. Emphysematous changes are present. Mediastinum: Heart size is enlarged, without pericardial effusion. Right hilar lymph node is present measuring 1.8 cm, unchanged. Thoracic aorta is normal in caliber and enhancement. Esophagus is normal in caliber, without hiatal hernia. Bones and chest wall: No suspicious bony lesions. Ribs and thoracic spine appear intact throughout. Thyroid gland demonstrates low-attenuation foci, unchanged. No axillary or supraclavicular adenopathy. Abdomen: Left adrenal mass, nonobstructing left renal calculus, hepatic cysts and left renal cyst are stable. Otherwise, visualized upper abdominal solid organs appear normal in the early arterial phase of enhancement. IMPRESSION: Confluent and focal nodular opacities within the lungs bilaterally unchanged compared to prior exam. Overall appearance is most suspicious for persistent infection or inflammation. However, areas of nodularity can also be consistent with malignancy. Recommend short interval imaging follow-up and if failure to improve, further evaluation with potential PET scan or biopsy is recommended. No pulmonary embolism. Unchanged right hilar lymph node. While this could be reactive in nature, as noted above, if areas of nodularity are consistent with malignancy, this could represent metastatic disease. Unchanged left adrenal nodule. As previously identified, this is considered indeterminate on the basis of this exam and further evaluation with CT with adrenal protocol is recommended as indicated. Dictated by: Brook Mark M.D. on 06/19/2021 at 16:56 Approved by: Brook Mark M.D. on 06/19/2021 at 17:02
[2021-06-19] MEDS: SODIUM CHLORIDE 0.9% 500 ML 1000 ML IV (16:17)
== END 2021-06-19 18:46 | disposition home or self-care (01) ==
PROVIDERS: Emergency Provider Emergency Medicine; Family Provider Internal Medicine; PCP Physician Assistant
DX: J18.9 Pneumonia, unspecified organism (principal); R00.0 Tachycardia, unspecified; E86.0 Dehydration; Z87.891 Personal history of nicotine dependence
CPT/HCPCS: 36415; 71045; 71275; 80053; 81003; 82550; 83690; 83880; 84484; 85025; 85379; 93005; 93010; 96360; 96361; 99284; Q9967

== ENCOUNTER → 2021-07-18 12:49 | Outpatient (CLI) | payer MEDICARE, OTHER, SELFPAY ==
[2021-05-16 18:50] VITALS: BMI 18.5
[2021-07-18 13:54] LABS: Add Manual Diff / Slide Review NO; Basophils Absolute Auto 0 /uL (0-100); Basophils Percent Auto 0.2 % (0-2); Eosinophils Absolute Auto 200 /uL (0-450); Eosinophils Percent Auto 1.7 % (2-4); Hematocrit 39.4 % (36-46); Hemoglobin 13.2 g/dL (12.0-16.0); Lymphocytes Absolute Auto 5800 /uL (1100-4500); Lymphocytes Percent Auto 54.8 % (25-40); Mean Corpuscular HGB Conc 33.5 % (30-36); Mean Corpuscular Hemoglobin 35.8 PG (26-34); Mean Corpuscular Volume 106.9 fL (80-100); Monocytes Absolute Auto 400 /uL (0-900); Monocytes Percent Auto 3.8 % (3-14); Neutrophils Absolute Auto 4200 /uL (1500-7000); Neutrophils Percent Auto 39.5 % (50-75); Platelet Count 269 X10^3/uL (150-400); Red Blood Cell Count 3.69 X10^6/uL (4.0-5.2); Red Cell Distribution Width 15.8 % (11.6-14.8); White Blood Cell Count 10.6 X10^3/uL (4.5-11.0)
[2021-07-18 14:24] LABS: Alanine Aminotransferase 17 IU/L (<35); Albumin 4.2 g/dL (3.5-5.0); Albumin Globulin Ratio 1.2 (1.0-2.8); Alkaline Phosphatase 87 U/L (38-126); Aspartate Aminotransferase 28 IU/L (14-36); BUN Creatinine Ratio 26.4 (6-22); Bilirubin Total 0.8 mg/dL (0.2-1.3); Blood Urea Nitrogen 14 mg/dL (7-17); Calcium 10.3 mg/dL (8.4-10.2); Carbon Dioxide 27 mmol/L (22-32); Chloride 107 mmol/L (98-107); Estimated Glomerular Filt Rate > 60.0 mL/min (>60); Globulin 3.4 g/dL (1.7-4.1); Glucose 115 mg/dL (80-110); HEMOLYSIS < 15 (0-50); Potassium 4.2 mmol/L (3.4-5.1); Sodium 141 mmol/L (137-145); Total Protein 7.6 g/dL (6.3-8.2)
== END ==
PROVIDERS: Family Provider Internal Medicine; PCP Physician Assistant; Referring Provider Physician Assistant; Visit Provider Physician Assistant
DX: Z86.69 Personal history of other diseases of the nervous system and sense organs (principal); Z85.6 Personal history of leukemia; I10 Essential (primary) hypertension
CPT/HCPCS: 36415; 80053; 85025

== ENCOUNTER → 2021-07-23 13:43 | Outpatient (CLI) | payer MEDICARE, OTHER, SELFPAY ==
[2021-05-16 18:50] VITALS: BMI 18.5
--- NOTE | 2021-07-23 13:59 | DI.CT.S_ITS ---
PROCEDURE: CT ABDOMEN WO/W CON INDICATIONS: ADRENAL NODULE TECHNIQUE: Noncontrast 3 mm thick sections acquired from the diaphragms to the iliac crests. After the administration of intravenous contrast, 3 mm thick venous-phase and 15-minute delayed images acquired from the diaphragms to the iliac crests. For radiation dose reduction, the following was used: automated exposure control, adjustment of mA and/or kV according to patient size. COMPARISON: None. FINDINGS: Image quality: Excellent. Lung bases: Please see separately dictated same day CT chest. Adrenal glands: Left adrenal nodule measuring 1.9 cm, (3/37). Noncontrast phase: -2 Hounsfield units. Portal venous phase: 72 Hounsfield units. Delayed phase: 17 Hounsfield units. Absolute Washout: 74 %. Absolute washout of 60% or higher is consistent with an adenoma. Relative Washout: 76 %. Relative washout of 40% or higher is consistent with an adenoma. Solid organs: Liver is normal in size and enhancement. Multiple hepatic hypodensities which have the appearance of benign cysts. Gallbladder is absent. Biliary system is non dilated. Pancreas enhances normally. Spleen is normal in size and enhancement. Kidneys are normal in size and enhancement. Several small benign renal cysts. Right kidney caliectasis. No hydroureter. Multiple nonobstructing kidney stones bilaterally. Peritoneum and bowel: Unenhanced bowel loops are normal in caliber and wall thickness. No free fluid or air. Nodes and vessels: No retroperitoneal or mesenteric adenopathy by size criteria. Aorta and inferior vena cava are normal in size. Extensive calcified atherosclerotic plaque. Miscellaneous: No ventral hernias. Bones: No suspicious bony lesions. No vertebral body compression fractures. IMPRESSION: 1. Left adrenal nodule measuring 1.9 cm is consistent with a benign adenoma. 2. Multiple benign appearing hepatic cysts. 3. Nonobstructing kidney stones. Please see separately dictated same day CT chest. Dictated by: Ahsan Velásquez M.D. on 07/23/2021 at 15:11 Approved by: Ahsan Velásquez M.D. on 07/23/2021 at 15:19
[2021-07-23 14:13] LABS: Add Manual Diff / Slide Review NO; Basophils Absolute Auto 0 /uL (0-100); Basophils Percent Auto 0.4 % (0-2); Eosinophils Absolute Auto 200 /uL (0-450); Eosinophils Percent Auto 2.2 % (2-4); Hematocrit 38.5 % (36-46); Lymphocytes Absolute Auto 5300 /uL (1100-4500); Lymphocytes Percent Auto 55.8 % (25-40); Mean Corpuscular HGB Conc 33.9 % (30-36); Mean Corpuscular Hemoglobin 36.1 PG (26-34); Mean Corpuscular Volume 106.5 fL (80-100); Monocytes Absolute Auto 400 /uL (0-900); Monocytes Percent Auto 4.5 % (3-14); Neutrophils Absolute Auto 3500 /uL (1500-7000); Neutrophils Percent Auto 37.1 % (50-75); Platelet Count 271 X10^3/uL (150-400); Red Blood Cell Count 3.62 X10^6/uL (4.0-5.2); Red Cell Distribution Width 16.1 % (11.6-14.8); White Blood Cell Count 9.5 X10^3/uL (4.5-11.0)
[2021-07-23 14:28] LABS: Alanine Aminotransferase 18 IU/L (<35); Albumin 4.4 g/dL (3.5-5.0); Albumin Globulin Ratio 1.2 (1.0-2.8); Alkaline Phosphatase 103 U/L (38-126); Aspartate Aminotransferase 34 IU/L (14-36); BUN Creatinine Ratio 31.5 (6-22); Bilirubin Total 0.7 mg/dL (0.2-1.3); Blood Urea Nitrogen 17 mg/dL (7-17); Calcium 10.1 mg/dL (8.4-10.2); Carbon Dioxide 29 mmol/L (22-32); Chloride 105 mmol/L (98-107); Estimated Glomerular Filt Rate > 60.0 mL/min (>60); Globulin 3.6 g/dL (1.7-4.1); Glucose 93 mg/dL (80-110); HEMOLYSIS < 15 (0-50); Potassium 3.9 mmol/L (3.4-5.1); Sodium 141 mmol/L (137-145)
--- NOTE | 2021-07-23 14:36 | DI.CT.S_ITS ---
PROCEDURE: CT CHEST W CON INDICATIONS: ABNORMAL LUNG CT 06/19/21, ADRENAL NODULE TECHNIQUE: After the administration of intravenous contrast, 5 mm thick sections acquired from the pulmonary apices to the posterior costophrenic angles. 1 mm axial lung, 5 mm thick coronal and sagittal reformats and 7 mm axial MIP were acquired. For radiation dose reduction, the following was used: automated exposure control, adjustment of mA and/or kV according to patient size. COMPARISON: [facility], CT, CT ABDOMEN WO/W CON, 07/23/2021, 14:02. [facility], CT, CT ANGIO CHEST PE PROTOCOL, 06/19/2021, 15:55. [facility], CT, CT ANGIO CHEST PE PROTOCOL, 05/16/2021, 15:12. FINDINGS: Image quality: Excellent. Lungs and pleura: Moderate emphysematous change. There is minimal interval change. Small patchy of opacity in the right upper lobe, (3/144), new. There are multiple patchy areas of consolidative and nodular opacity. Compared to the CT 05/16/2021 there is slight improvement at the right lower lobe. There is a focal area of nodularity at the right lower lobe which appears spiculated and measures 1.6 x 1.4 cm, (3/206), not significantly changed. Nodular opacity at the left lung base measuring 1.6 cm, (3/253), previously 1.5 cm. No pleural effusions or pneumothorax. Central and peripheral airways are patent and normal in caliber. Mediastinum: Heart size is normal. No pericardial effusion. Right hilar node measuring approximately 1.2 cm, (2/30), previously 1.4 cm. Thoracic aorta and central pulmonary arteries are normal in size. Moderate plaque. Esophagus is normal in caliber. No hiatal hernia. Bones and chest wall: No suspicious bony lesions. No vertebral body compression fractures. No axillary or supraclavicular adenopathy by size criteria. Small right thyroid nodule. Abdomen: Multiple hypodense foci in the liver. These are more conspicuous due to differences in contrast bolus timing. Some of these have the appearance of benign cysts. Others are too small to further characterize. Left adrenal nodule measuring 1.9 cm, (2/58), previously 2 cm on 05/16/2021. Nonobstructing right kidney stone partially visualized. IMPRESSION: 1. Small consolidative opacity in the right upper lobe which is new. Other patchy consolidative and nodular opacities in both lungs are similar. A nodular opacity at the right lower lobe measuring 1.6 cm has a spiculated appearance. These remain indeterminate but suspicious for malignancy. Recommend PET/CT for further evaluation. 2. Similar right hilar node is indeterminate. 3. Left adrenal nodule measuring 1.9 cm is unchanged in size. Please see separately dictated adrenal protocol washout CT. Dictated by: Ahsan Velásquez M.D. on 07/23/2021 at 14:52 Approved by: Ahsan Velásquez M.D. on 07/23/2021 at 15:11
== END ==
PROVIDERS: Family Provider Internal Medicine; PCP Physician Assistant; Referring Provider Physician Assistant; Visit Provider Physician Assistant
DX: K76.89 Other specified diseases of liver (principal); R91.8 Other nonspecific abnormal finding of lung field; E27.9 Disorder of adrenal gland, unspecified; N20.0 Calculus of kidney; I10 Essential (primary) hypertension; Z85.6 Personal history of leukemia
CPT/HCPCS: 36415; 71260; 74170; 80053; 85025

== ENCOUNTER → 2021-09-16 11:51 | Outpatient (ROUT) | payer MEDICARE, OTHER, SELFPAY ==
[2021-05-16 18:50] VITALS: BMI 18.5
[2021-09-16 13:31] LABS: COVID19 -Nasal RAPID Negative (Negative)
== END ==
PROVIDERS: Family Provider Internal Medicine; PCP Physician Assistant; Visit Provider Physician Assistant
DX: Z20.822 Contact with and (suspected) exposure to COVID-19 (principal)
CPT/HCPCS: 87635

== ENCOUNTER → 2021-09-30 12:52 | Outpatient (ROUT) | payer MEDICARE, OTHER, SELFPAY ==
[2021-05-16 18:50] VITALS: BMI 18.5
[2021-09-30 13:55] LABS: COVID19 -Nasal RAPID Negative (Negative)
== END ==
PROVIDERS: Family Provider Internal Medicine; PCP Physician Assistant; Visit Provider Physician Assistant
DX: Z20.822 Contact with and (suspected) exposure to COVID-19 (principal)
CPT/HCPCS: 87635